=== PATIENT | female | born 1980 ===

== ENCOUNTER → 2021-08-22 | Outpatient (CLI) | payer OTHER ==
--- NOTE | 2021-08-23 04:45 | MR ---
EXAMINATION TYPE: MR ankle RT wo con DATE OF EXAM: 08/22/2021 COMPARISON: None HISTORY: Right ankle pain Multiplanar multiecho imaging of the right ankle without contrast. There is slight increased fluid signal in the anterior aspect of the Achilles tendon at the posterior aspect of the calcaneus. This is suggestive of a partial tear. Plantar fascia appears intact. Subtal ar joint is intact. Ankle mortise is anatomic. The collateral ligaments are intact. There is no evidence of any significa nt ankle joint effusion. Medial and lateral flexor tendons of the ankle appear intact. There is no ev idence of any significant soft tissue swelling. IMPRESSION: There is some mild increased fluid signal in in the anterior aspect of the Achilles tendon suggestive of a partial tear near the attachment on the calcaneus. No fracture seen. No evidence of ligament te ar.
== END | disposition home or self-care (01) ==
LOC: RADMRIMAIN 19:01
PROVIDERS: ATTEND Physician Assistant
DX: M25.571 Pain in right ankle and joints of right foot (principal)

== ENCOUNTER 2023-11-08 23:29 | Inpatient (IN) | payer MEDICARE, OTHER ==
--- NOTE | 2023-11-09 00:04 | ED ---
SOB HPI - General Chief Complaint: Shortness of Breath Stated Complaint: Difficulty Breathing Time Seen by Provider: 11/08/23 23:47 Source: patient Mode of arrival: ambulatory Limitations: no limitations - History of Present Illness Initial Comments: Please note that this is a repeat dictation, as the original appears to have been lost from the computer system. This patient is a 43-year-old woman presenting with complaint that she is not feeling well. The main issue is that she is short of breath and weak. She is not a great historian, appearing to be moderately delirious. The patient was denying pains. She did not note fevers though she said at times she gets warm. No pains. There is cough but no sputum. MD Complaint: shortness of breath, cough -: unknown Severity scale (1-10): 0 Consistency: constant Improves With: nothing Worsens With: nothing Known History Of: diabetes Treatments Prior to Arrival: none - Related Data Home Oxygen Therapy: No Home Medications Medication Instructions Recorded Confirmed Albuterol Sulfate [Albuterol 1 - 2 puff PO RT-Q4H PRN 11/09/23 11/09/23 Sulfate Hfa] Atorvastatin [Lipitor] 20 mg PO HS 11/09/23 11/09/23 Brexpiprazole [Rexulti] 0.5 mg PO DAILY 11/09/23 11/09/23 Dextromethorphan HBr/Bupropion 1 tab PO BID 11/09/23 11/09/23 [Auvelity ER 45-105 mg Tablet] Losartan [Cozaar] 50 mg PO DAILY 11/09/23 11/09/23 Montelukast [Singulair] 10 mg PO HS 11/09/23 11/09/23 Pantoprazole Sodium [Protonix] 20 mg PO DAILY 11/09/23 11/09/23 buPROPion SR [Wellbutrin SR] 100 mg PO DAILY 11/09/23 11/09/23 hydroCHLOROthiazide [Hydrodiuril] 25 mg PO DAILY 11/09/23 11/09/23 Previous Rx's Medication Instructions Recorded Acetaminophen Tab [Tylenol] 650 mg PO Q6HR PRN tab 11/13/23 Insulin Detemir (Levemir) [Levemir] 50 unit SQ HS #2 each 11/14/23 Syringe-Needle,Insulin,0.5 ml 1 syr SQ DIRECTED #30 each 11/14/23 [Insulin Syringe 30G 5/16" 1/2 ml] metFORMIN HCL [Glucophage] 500 mg PO BID #60 tab 11/14/23 Allergies Allergy/AdvReac Type Severity Reaction Status Date / Time shellfish derived Allergy Rash/Hives Verified 11/09/23 10:17 Review of Systems ROS Statement: Those systems with pertinent positive or pertinent negative responses have been documented in the HPI. ROS Other: All systems not noted in ROS Statement are negative. Limitations: ROS unobtainable due to patients medical condition Constitutional: Denies: fever Respiratory: Reports: cough, dyspnea Cardiovascular: Denies: chest pain Gastrointestinal: Denies: abdominal pain, vomiting, diarrhea Genitourinary: Denies: dysuria Musculoskeletal: Denies: back pain Neurological: Denies: headache Past Medical History Past Medical History: Diabetes Mellitus History of Any Multi-Drug Resistant Organisms: None Reported Past Surgical History: No Surgical Hx Reported Past Psychological History: Bipolar Smoking Status: Never smoker Past Alcohol Use History: None Reported Past Drug Use History: None Reported General Exam Limitations: altered mental status (Patient appears delirious) General appearance: alert, in no apparent distress Head exam: Present: atraumatic, normocephalic Eye exam: Present: normal appearance, PERRL, EOMI. Absent: scleral icterus, conjunctival injection ENT exam: Present: normal oropharynx Neck exam: Present: normal inspection, full ROM. Absent: meningismus Respiratory exam: Present: respiratory distress (There is mild tachypnea), rhonchi. Absent: wheezes, rales, stridor, accessory muscle use Cardiovascular Exam: Present: normal rhythm, tachycardia, systolic murmur (Grade 2/6 systolic ejection murmur). Absent: diastolic murmur, rubs, gallop GI/Abdominal exam: Present: soft. Absent: distended, tenderness, guarding, rebound, rigid, mass Extremities exam: Present: normal inspection, normal capillary refill, pedal edema. Absent: calf tenderness Back exam: Present: normal inspection. Absent: CVA tenderness (R), CVA tenderness (L) Neurological exam: Present: alert, CN II-XII intact. Absent: motor sensory deficit Skin exam: Present: warm, dry, intact, mottled. Absent: rash Course Vital Signs 11/08/23 11/08/23 11/08/23 23:37 23:53 23:57 Temperature 98.5 F Pulse Rate 120 H 113 H 112 H Respiratory 22 24 24 Rate Blood Pressure 132/70 124/83 O2 Sat by Pulse 76 L 86 L 92 L Oximetry 11/09/23 11/09/23 11/09/23 00:00 02:23 04:23 Temperature Pulse Rate 108 H 98 Respiratory 24 20 17 Rate Blood Pressure 160/108 131/101 O2 Sat by Pulse 92 L 93 L Oximetry 11/09/23 11/09/23 11/09/23 07:12 08:00 08:28 Temperature 98.7 F Pulse Rate 109 H 102 H 101 H Respiratory 22 23 24 Rate Blood Pressure 123/78 123/78 167/93 O2 Sat by Pulse 92 L 89 L 91 L Oximetry 11/09/23 11/09/23 11/09/23 09:00 10:00 11:19 Temperature Pulse Rate 110 H 99 104 H Respiratory 30 H 21 30 H Rate Blood Pressure 167/93 109/84 147/83 O2 Sat by Pulse 88 L 92 L 88 L Oximetry 11/09/23 11/09/23 11/09/23 13:24 18:07 19:28 Temperature Pulse Rate 101 H 98 101 H Respiratory 20 22 20 Rate Blood Pressure 125/74 131/73 132/72 O2 Sat by Pulse 90 L 98 94 L Oximetry 11/09/23 11/09/23 11/09/23 19:40 19:49 22:11 Temperature 97.8 F Pulse Rate 101 H 103 H 98 Respiratory 22 Rate Blood Pressure 114/84 O2 Sat by Pulse 92 L Oximetry Medical Decision Making - Medical Decision Making Patient is 43-year-old woman presenting with dyspnea and cough. Initial workup includes chest x-ray that I interpreted as showing probable lower lobe pneumonia. Patient started on antibiotics. The patient's BNP is borderline for age and patient will have echocardiogram. At this point we'll hold off of aggressive hydration until the results of the echocardiogram. The patient's blood gas does show elevated pCO2 however the pH appears show compensation and suspect that this is chronic. Based on appearance patient is suspected of some chronic restrictive lung disease. Patient be admitted with neurology and cardiology consultation. Was pt. sent in by a medical professional or institution (, PA, SHEETROCK APPLICATOR, urgent care, hospital, or usp...) When possible be specific @ -[No] Did you speak to anyone other than the patient for history (EMS, parent, family, police, friend...)? What history was obtained from this source @ -[No] Did you review nursing and triage notes (agree or disagree)? Why? @ -[I reviewed and agree with nursing and triage notes] Were old charts reviewed (outside hosp., previous admission, EMS record, old EKG, old radiological studies, urgent care reports/EKG's, usp records)? Report findings @ -[No old charts were reviewed] Differential Diagnosis (chest pain, altered mental status, abdominal pain women, abdominal pain men, vaginal bleeding, weakness, fever, dyspnea, syncope, head ache, dizziness, GI bleed, back pain, seizure, CVA, palpatations, mental health, musculoskeletal)? @ -[Differential Dyspnea: Coronary syndrome, arrhythmia, tamponade, asthma, COPD, pulmonary embolism, pneumonia, pneumothorax, pulmonary effusion, anaphylaxis, diabetic ketoacidosis, flailed chest, pulmonary contusion, diaphragmatic rupture, anemia, neuromuscular, this is not meant to be an all-inclusive list. EKG interpreted by me (3pts min.). @ -[I interpreted as above] X-rays interpreted by me (1pt min.). @ -[I interpreted as above CT interpreted by me (1pt min.). @ -[None done] U/S interpreted by me (1pt. min.). @ -[None done] What testing was considered but not performed or refused? (CT, X-rays, U/S, labs)? Why? @ -[None] What meds were considered but not given or refused? Why? @ -[None] Did you discuss the management of the patient with other professionals (professionals i.e. , PA, SHEETROCK APPLICATOR, lab, RT, psych nurse, social welfare research worker, low voltage technician, teacher, retail loss prevention officer, top case assembler)? Give summary @ -[I discussed the case with the admitting physician and with the portal architect and treatment recommendations are incorporated Was smoking cessation discussed for >3mins.? @ -[No] Was critical care preformed (if so, how long)? @ -[Yes, 30 minutes Were there social determinants of health that impacted care today? How? (Homelessness, low income, unemployed, alcoholism, drug addiction, transportation, low edu. Level, literacy, decrease access to med. care, [facility], rehab)? @ -[No] Was there de-escalation of care discussed even if they declined (Discuss DNR or withdrawal of care, Hospice)? DNR status @ -[No] What co-morbidities impacted this encounter? (DM, HTN, Smoking, COPD, CAD, Cancer, CVA, ARF, Chemo, Hep., AIDS, mental health diagnosis, sleep apnea, morbid obesity)? @ -[Diabetes, morbid obesity Was patient admitted / discharged? Hospital course, mention meds given and route, prescriptions, significant lab abnormalities, going to OR and other pertinent info. @ -[Patient is admitted, see above Undiagnosed new problem with uncertain prognosis? @ -[No] Drug Therapy requiring intensive monitoring for toxicity (Heparin, Nitro, Insulin, Cardizem)? @ -[No] Were any procedures done? @ -[No] Diagnosis/symptom? @ -[Acute dyspnea Acute hypercarbia Restrictive lung disease Hyperglycemia and diabetic patient Acute, or Chronic, or Acute on Chronic? @ -[Acute Uncomplicated (without systemic symptoms) or Complicated (systemic symptoms)? @ -[Complicated Side effects of treatment? @ -[No] Exacerbation, Progression, or Severe Exacerbation? @ -[No] Poses a threat to life or bodily function? How? (Chest pain, USA, SD, pneumonia, PE, COPD, DKA, ARF, appy, cholecystitis, CVA, Diverticulitis, Homicidal, Suicidal, threat to staff... and all critical care pts) @ -[Yes, there is risk of further progression to respiratory failure and - Lab Data Result diagrams: 11/12/23 05:27 11/12/23 05:27 Lab Results 11/08/23 11/08/23 11/08/23 Range/Units 23:52 23:52 23:52 WBC 10.3 (3.8-10.6) k/uL RBC 5.33 (3.80-5.40) m/uL Hgb 13.1 (11.4-16.0) gm/dL Hct 43.8 (34.0-46.0) % MCV 82.2 (80.0-100.0) fL MCH 24.6 L (25.0-35.0) pg MCHC 29.9 L (31.0-37.0) g/dL RDW 15.9 H (11.5-15.5) % Plt Count 250 (150-450) k/uL MPV 9.2 Neutrophils % (Manual) 66 % Band Neuts % (Manual) 1 % Lymphocytes % (Manual) 29 % Monocytes % (Manual) 3 % Eosinophils % (Manual) 1 % Neutrophils # (Manual) 6.90 (1.3-7.7) k/uL Lymphocytes # (Manual) 2.99 (1.0-4.8) k/uL Monocytes # (Manual) 0.31 (0-1.0) k/uL Eosinophils # (Manual) 0.10 (0-0.7) k/uL Nucleated RBCs 2 H (0-0) /100 WBC Manual Slide Review Performed Polychromasia Present Hypochromasia Marked Poikilocytosis Slight Anisocytosis (manual) Present PT 10.2 (10.0-12.5) sec INR 0.9 (<1.2) APTT 20.4 L (22.0-30.0) sec D-Dimer 0.58 (<0.60) mg/L FEU Sample Site ABG pH (7.35-7.45) ABG pCO2 (35-45) mmHg ABG pO2 (83-108) mmHg ABG HCO3 (21-25) mmol/L ABG Total CO2 ABG O2 Saturation (94-97) % ABG Base Excess mmol/L Joao Test FiO2 % Sodium 133 L (137-145) mmol/L Potassium 4.9 (3.5-5.1) mmol/L Chloride 93 L (98-107) mmol/L Carbon Dioxide 33 H (22-30) mmol/L Anion Gap 7 mmol/L BUN 16 (7-17) mg/dL Creatinine 0.64 (0.52-1.04) mg/dL Est GFR (CKD-EPI)AfAm >90 (>60 ml/min/1.73 sqM) Est GFR (CKD-EPI)NonAf >90 (>60 ml/min/1.73 sqM) Glucose 480 H (74-99) mg/dL POC Glucose (mg/dL) (70-110) mg/dL POC Glu Resp Therapist ID Estimated Ave Glu mg/dL mg/dL Hemoglobin A1c (<=6.0) % Lactic Ac Sepsis Rflx Plasma Lactic Acid Mac (0.7-2.0) mmol/L Calcium 10.0 (8.4-10.2) mg/dL Total Bilirubin 0.6 (0.2-1.3) mg/dL AST 31 (14-36) U/L ALT 43 H (4-34) U/L Alkaline Phosphatase 136 H (38-126) U/L Troponin I (0.000-0.034) ng/mL NT-Pro-B Natriuret Pep 496 pg/mL Total Protein 6.3 (6.3-8.2) g/dL Albumin 3.6 (3.5-5.0) g/dL Procalcitonin (0.02-0.09) ng/mL 11/08/23 11/08/23 11/08/23 Range/Units 23:52 23:52 23:52 WBC (3.8-10.6) k/uL RBC (3.80-5.40) m/uL Hgb (11.4-16.0) gm/dL Hct (34.0-46.0) % MCV (80.0-100.0) fL MCH (25.0-35.0) pg MCHC (31.0-37.0) g/dL RDW (11.5-15.5) % Plt Count (150-450) k/uL MPV Neutrophils % (Manual) % Band Neuts % (Manual) % Lymphocytes % (Manual) % Monocytes % (Manual) % Eosinophils % (Manual) % Neutrophils # (Manual) (1.3-7.7) k/uL Lymphocytes # (Manual) (1.0-4.8) k/uL Monocytes # (Manual) (0-1.0) k/uL Eosinophils # (Manual) (0-0.7) k/uL Nucleated RBCs (0-0) /100 WBC Manual Slide Review Polychromasia Hypochromasia Poikilocytosis Anisocytosis (manual) PT (10.0-12.5) sec INR (<1.2) APTT (22.0-30.0) sec D-Dimer (<0.60) mg/L FEU Sample Site ABG pH (7.35-7.45) ABG pCO2 (35-45) mmHg ABG pO2 (83-108) mmHg ABG HCO3 (21-25) mmol/L ABG Total CO2 ABG O2 Saturation (94-97) % ABG Base Excess mmol/L Joao Test FiO2 % Sodium (137-145) mmol/L Potassium (3.5-5.1) mmol/L Chloride (98-107) mmol/L Carbon Dioxide (22-30) mmol/L Anion Gap mmol/L BUN (7-17) mg/dL Creatinine (0.52-1.04) mg/dL Est GFR (CKD-EPI)AfAm (>60 ml/min/1.73 sqM) Est GFR (CKD-EPI)NonAf (>60 ml/min/1.73 sqM) Glucose (74-99) mg/dL POC Glucose (mg/dL) (70-110) mg/dL POC Glu Resp Therapist ID Estimated Ave Glu mg/dL mg/dL Hemoglobin A1c (<=6.0) % Lactic Ac Sepsis Rflx Plasma Lactic Acid Mac 3.6 H* (0.7-2.0) mmol/L Calcium (8.4-10.2) mg/dL Total Bilirubin (0.2-1.3) mg/dL AST (14-36) U/L ALT (4-34) U/L Alkaline Phosphatase (38-126) U/L Troponin I <0.012 (0.000-0.034) ng/mL NT-Pro-B Natriuret Pep pg/mL Total Protein (6.3-8.2) g/dL Albumin (3.5-5.0) g/dL Procalcitonin 0.13 H (0.02-0.09) ng/mL 11/08/23 11/09/23 11/09/23 Range/Units 23:52 00:15 01:27 WBC (3.8-10.6) k/uL RBC (3.80-5.40) m/uL Hgb (11.4-16.0) gm/dL Hct (34.0-46.0) % MCV (80.0-100.0) fL MCH (25.0-35.0) pg MCHC (31.0-37.0) g/dL RDW (11.5-15.5) % Plt Count (150-450) k/uL MPV Neutrophils % (Manual) % Band Neuts % (Manual) % Lymphocytes % (Manual) % Monocytes % (Manual) % Eosinophils % (Manual) % Neutrophils # (Manual) (1.3-7.7) k/uL Lymphocytes # (Manual) (1.0-4.8) k/uL Monocytes # (Manual) (0-1.0) k/uL Eosinophils # (Manual) (0-0.7) k/uL Nucleated RBCs (0-0) /100 WBC Manual Slide Review Polychromasia Hypochromasia Poikilocytosis Anisocytosis (manual) PT (10.0-12.5) sec INR (<1.2) APTT (22.0-30.0) sec D-Dimer (<0.60) mg/L FEU Sample Site Right Radial ABG pH 7.39 (7.35-7.45) ABG pCO2 65 H (35-45) mmHg ABG pO2 63 L (83-108) mmHg ABG HCO3 39 H (21-25) mmol/L ABG Total CO2 Not Reportable ABG O2 Saturation 91.0 L (94-97) % ABG Base Excess 11.4 mmol/L Joao Test Yes FiO2 52 % Sodium (137-145) mmol/L Potassium (3.5-5.1) mmol/L Chloride (98-107) mmol/L Carbon Dioxide (22-30) mmol/L Anion Gap mmol/L BUN (7-17) mg/dL Creatinine (0.52-1.04) mg/dL Est GFR (CKD-EPI)AfAm (>60 ml/min/1.73 sqM) Est GFR (CKD-EPI)NonAf (>60 ml/min/1.73 sqM) Glucose (74-99) mg/dL POC Glucose (mg/dL) (70-110) mg/dL POC Glu Resp Therapist ID Estimated Ave Glu mg/dL 303 mg/dL Hemoglobin A1c 12.2 H (<=6.0) % Lactic Ac Sepsis Rflx Y Plasma Lactic Acid Mac (0.7-2.0) mmol/L Calcium (8.4-10.2) mg/dL Total Bilirubin (0.2-1.3) mg/dL AST (14-36) U/L ALT (4-34) U/L Alkaline Phosphatase (38-126) U/L Troponin I (0.000-0.034) ng/mL NT-Pro-B Natriuret Pep pg/mL Total Protein (6.3-8.2) g/dL Albumin (3.5-5.0) g/dL Procalcitonin (0.02-0.09) ng/mL 11/09/23 11/09/23 Range/Units 04:08 05:52 WBC (3.8-10.6) k/uL RBC (3.80-5.40) m/uL Hgb (11.4-16.0) gm/dL Hct (34.0-46.0) % MCV (80.0-100.0) fL MCH (25.0-35.0) pg MCHC (31.0-37.0) g/dL RDW (11.5-15.5) % Plt Count (150-450) k/uL MPV Neutrophils % (Manual) % Band Neuts % (Manual) % Lymphocytes % (Manual) % Monocytes % (Manual) % Eosinophils % (Manual) % Neutrophils # (Manual) (1.3-7.7) k/uL Lymphocytes # (Manual) (1.0-4.8) k/uL Monocytes # (Manual) (0-1.0) k/uL Eosinophils # (Manual) (0-0.7) k/uL Nucleated RBCs (0-0) /100 WBC Manual Slide Review Polychromasia Hypochromasia Poikilocytosis Anisocytosis (manual) PT (10.0-12.5) sec INR (<1.2) APTT (22.0-30.0) sec D-Dimer (<0.60) mg/L FEU Sample Site ABG pH (7.35-7.45) ABG pCO2 (35-45) mmHg ABG pO2 (83-108) mmHg ABG HCO3 (21-25) mmol/L ABG Total CO2 ABG O2 Saturation (94-97) % ABG Base Excess mmol/L Joao Test FiO2 % Sodium (137-145) mmol/L Potassium (3.5-5.1) mmol/L Chloride (98-107) mmol/L Carbon Dioxide (22-30) mmol/L Anion Gap mmol/L BUN (7-17) mg/dL Creatinine (0.52-1.04) mg/dL Est GFR (CKD-EPI)AfAm (>60 ml/min/1.73 sqM) Est GFR (CKD-EPI)NonAf (>60 ml/min/1.73 sqM) Glucose (74-99) mg/dL POC Glucose (mg/dL) 242 H (70-110) mg/dL POC Glu Resp Therapist ID Julia Freitas Estimated Ave Glu mg/dL mg/dL Hemoglobin A1c (<=6.0) % Lactic Ac Sepsis Rflx Plasma Lactic Acid Mac 1.4 (0.7-2.0) mmol/L Calcium (8.4-10.2) mg/dL Total Bilirubin (0.2-1.3) mg/dL AST (14-36) U/L ALT (4-34) U/L Alkaline Phosphatase (38-126) U/L Troponin I (0.000-0.034) ng/mL NT-Pro-B Natriuret Pep pg/mL Total Protein (6.3-8.2) g/dL Albumin (3.5-5.0) g/dL Procalcitonin (0.02-0.09) ng/mL - EKG Data -: EKG Interpreted by Me EKG shows normal: sinus rhythm (05/22/2011 bpm), intervals (Normal), QRS complexes Rate: tachycardia (Rate 111 bpm) Interpretation: other (Possible old inferior SD) Disposition Clinical Impression: Dyspnea, Pneumonia, Hypercarbia, Hyperglycemia due to diabetes mellitus Disposition: ADMITTED IP TO THIS HOSP Condition: Stable Is patient prescribed a controlled substance at d/c from ED?: No
[2023-11-09 00:14] LABS: ABG Base Excess 11.4 mmol/L; ABG HCO3 39 mmol/L (21-25); ABG PCO2 65 mmHg (35-45); ABG PH 7.39 (7.35-7.45); ABG PO2 63 mmHg (83-108); Allen Test Performed? Yes
[2023-11-09 01:05] LABS: INR 0.9 (<1.2); Prothrombin Time 10.2 sec (10.0-12.5)
[2023-11-09 01:18] LABS: Partial Thromboplastin Time 20.4 sec (22.0-30.0)
[2023-11-09 01:36] LABS: HCT 43.8 % (34.0-46.0); HGB 13.1 gm/dL (11.4-16.0); Hypochromasia Marked; MCH 24.6 pg (25.0-35.0); MCHC 29.9 g/dL (31.0-37.0); MCV 82.2 fL (80.0-100.0); Mean Platelet Volume 9.2; Platelet Count 250 k/uL (150-450); Poikilocytosis Slight; RBC 5.33 m/uL (3.80-5.40); RDW 15.9 % (11.5-15.5)
[2023-11-09 01:59] LABS: ALT 43 U/L (4-34); AST 31 U/L (14-36); African American GFR (CKD) >90 (>60 ml/min/1.73 sqM); Albumin 3.6 g/dL (3.5-5.0); Alkaline Phosphatase 136 U/L (38-126); Anion Gap 7 mmol/L; Blood Urea Nitrogen 16 mg/dL (7-17); Carbon Dioxide 33 mmol/L (22-30); Chloride 93 mmol/L (98-107); Glucose 480 mg/dL (74-99); Non-African American GFR(CKD) >90 (>60 ml/min/1.73 sqM); Potassium 4.9 mmol/L (3.5-5.1); Sodium 133 mmol/L (137-145); Total Bilirubin 0.6 mg/dL (0.2-1.3); Total Protein 6.3 g/dL (6.3-8.2)
[2023-11-09 02:08] LABS: NT-Pro-B-Type Natriuretic Pept 496 pg/mL
--- NOTE | 2023-11-09 03:13 | XR ---
EXAM: XR Chest, 2 Views CLINICAL HISTORY: ITS.REASON XR Reason: difficulty breathing TECHNIQUE: Frontal and lateral views of the chest. COMPARISON: No relevant prior studies available. FINDINGS: Lungs: Query mild patchy atelectasis or airspace disease in the right lung base. Pleural space: Unremarkable. No pneumothorax. Heart: Unremarkable. No cardiomegaly. Mediastinum: Unremarkable. Normal mediastinal contour. Bones/joints: Unremarkable. No acute fracture. Other findings: On the frontal view, patient mildly rotated to the right. IMPRESSION: Query mild patchy atelectasis or airspace disease in the right lung base.
[2023-11-09] MEDS ORDERED: INSULIN REGULAR 100 UNIT/ML VIAL (IV) SQ STA (03:20)
[2023-11-09] MEDS ORDERED: NITROGLYCERIN OINT 1 INCH/GM PACKET TOPICAL STA (04:00)
[2023-11-09] MEDS ORDERED: AZITHROMYCIN 500 MG TAB PO STA (04:01)
[2023-11-09 04:18] LABS: Band Neutrophils % 1 %; Neutrophils % (M) 66 %; Nucleated Red Blood Cells 2 /100 WBC (0-0); Total Cells Counted 200
[2023-11-09 04:19] LABS: Lymphocytes # (M) 2.99 k/uL (1.0-4.8); Monocytes # (M) 0.31 k/uL (0-1.0); WBC 10.3 k/uL (3.8-10.6)
[2023-11-09 04:20] LABS: Anisocytosis (M) Present
[2023-11-09 04:22] LABS: Polychromasia Present
[2023-11-09 05:54] LABS: Glucose,Whole Blood 242 mg/dL (70-110)
[2023-11-09] MEDS ORDERED: PNEUMONIA PROTOCOL UTILIZED 1 EACH MISC PO PRN (06:01)
[2023-11-09] MEDS ORDERED: ALBUTEROL NEBULIZED 2.5 MG/3 ML INHALATION PRN (06:01)
[2023-11-09] MEDS ORDERED: DEXTROSE 50% SYRINGE 50 ML IVP PRN ×2 (06:35)
[2023-11-09 06:53] LABS: Glucose,Whole Blood 268 mg/dL (70-110)
[2023-11-09] MEDS: INSULIN ASPART (NovoLOG) 100 UNIT/ML VIAL SQ SCH ×7 (08:29→22:20)
[2023-11-09] MEDS ORDERED: FUROSEMIDE 10 MG/ML 4 ML VIAL IV STA (10:02)
--- NOTE | 2023-11-09 10:08 | CA ---
Transthoracic Echo Report Name: Paradise Ulloa Age: 43 Gender: F : 1980 Exam Date: 11/09/2023 07:54 Exam Location: [facility] Ht (in): 62 Wt (lb): 300 Ordering Physician: Moreno Brown MD Attending/Referring Phys: Nursing Assistant Mary Alvarez [facility] Procedure CPT: Indications: elevated bnp Cardiac Hx: Technical Quality: Technically difficult study Contrast 1: Definity Total Dose (mL): 6 Contrast 2: Total Dose (mL): MEASUREMENTS (Male / Female) Normal Values 2D ECHO LV Diastolic Diameter PLAX 4.0 cm 4.2 - 5.9 / 3.9 - 5.3 cm LV Systolic Diameter PLAX 2.3 cm IVS Diastolic Thickness 1.5 cm 0.6 - 1.0 / 0.6 - 0.9 cm LVPW Diastolic Thickness 1.4 cm 0.6 - 1.0 / 0.6 - 0.9 cm LV Relative Wall Thickness 0.7 LVOT Diameter 2.0 cm Ascending Aorta Diameter 2.9 cm M-MODE Aortic Root Diameter MM 2.7 cm LA Systolic Diameter MM 3.2 cm LA Ao Ratio MM 1.2 AV Cusp Separation MM 2.2 cm DOPPLER AV Peak Velocity 196.5 cm/s AV Peak Gradient 15.5 mmHg AV Mean Velocity 138.5 cm/s AV Mean Gradient 8.6 mmHg AV Velocity Time Integral 32.0 cm LVOT Peak Velocity 134.1 cm/s LVOT Peak Gradient 7.2 mmHg LVOT Velocity Time Integral 23.8 cm LVOT Stroke Volume 78.4 cm??? LVOT Stroke Volume Index 34.5 ml/m??? LVOT Cardiac Index 2878.5 cm???/min???m??? AV Area Cont Eq vti 2.5 cm??? AV Area Cont Eq pk 2.2 cm??? Mitral E Point Velocity 78.2 cm/s Mitral A Point Velocity 108.3 cm/s Mitral E to A Ratio 0.7 MV Deceleration Time 154.1 ms LV E' Lateral Velocity 13.3 cm/s Mitral E to LV E' Lateral Ratio 5.9 LV E' Septal Velocity 7.8 cm/s Mitral E to LV E' Septal Ratio 10.0 TR Peak Velocity 254.8 cm/s TR Peak Gradient 26.0 mmHg Right Atrial Pressure 8.0 mmHg Pulmonary Artery Systolic Pressu 34.0 mmHg Right Ventricular Systolic Press 34.0 mmHg FINDINGS Left Ventricle Moderately increased septal wall thickness. Moderately increased posterior wall thickness. Left ventricular cavity size normal. Normal left ventricular systolic function with no obvious regional wall motion abnormalities. Left ventricular ejection fraction is estimated at 65-70%. Hyperdynamic left ventricular systolic function. Right Ventricle Mild right ventricular dilatation. Mildly reduced right ventricular global systolic function. Mild pulmonary hypertension. Right Atrium Mild right atrial dilatation. Left Atrium Normal left atrial size. Mitral Valve Structurally normal mitral valve. No mitral regurgitation. Aortic Valve Aortic valve not well visualized. No aortic valve stenosis or regurgitation. Tricuspid Valve Tricuspid valve not well visualized. Trace tricuspid regurgitation. Pulmonic Valve Pulmonic valve not well visualized. Pericardium Minimal pericardial effusion (normal variant). Aorta Normal size aortic root and proximal ascending aorta. CONCLUSIONS Normal LV size with hyperdynamic LV function Dilated right ventricle with hypokinesis of the free wall of the RV Previewed by: Dr. Vickey Moctezuma MD (Electronically Signed) Final Date: 09 November 2023 10:07
--- NOTE | 2023-11-09 11:12 | P.CNPUL ---
History of Present Illness Consult date: 11/09/23 Reason for consult: dyspnea, hypoxemia History of present illness: I saw this patient in emergency department. She is a 43-year-old morbidly obese female patient IS A BODY MASS INDEX OF 54.9. The patient was has less for shortness of breath. Unfortunately, no records are available from emergency and the physician on-call has left the hospital and the patient herself is a poor historian. She was unable to volunteer much of history. At time of arrival, the patient was sleeping and she was having active apneas and I do suspect that she has underlying obstructive sleep apnea. Upon arousal, she was not fully appropriate and she was somewhat confused and the information which provided was not reliable. She admits to have shortness of breath and she denies having any chest pain. She denied any, smoking history. Denies having any lung disease such as asthma or emphysema. Denies having any congestion heart failure. Hemodynamically she was stable. She was on 8 L of oxygen by nasal cannula. The chest x-ray showed mild patchy atelectatic changes/airspace disease in the right lung base. Echo of the heart was also done and the patient was found and left antegrade ejection fraction of 65-70%. She has a hyperdynamic LV and mother thinks the septal wall thickening and moderate increase in posterior wall thickness in the left ventricular cavity was normal. No significant valvular disease was noted. Meanwhile, the patient's blood work shows a WBC count of 10.3, hemoglobin at 13.1 and a platelet count is up to 50. Blood gas was done on 50% FiO2 this with the patient 7.39 with episodes of 65 and pO2 of 63. BUN is at 60 with a creatinine of 0.6 and a bicarb level is at 33. The glucose was at 339. Lactic acid level initially was at 3.6 and dropped down to 1.4 and a UA was negative for infection and she had +4 glucose. Pro-calcitonin level was at 0.13. ProBNP level was 496. Review of Systems ROS unobtainable: due to mental status Constitutional: Reports daytime sleepiness, Reports fatigue, Reports lethargy, Reports weight gain Eyes: denies as per HPI, denies blurred vision, denies bulging eye, denies decreased vision, denies diplopia, denies discharge, denies dry eye, denies irritation, denies itching, denies pain, denies photophobia, denies loss of peripheral vision, denies loss of vision, denies tunnel vision/blind spots Ears: deny: decreased hearing, ear discharge, earache, tinnitus Ears, nose, mouth and throat: Reports as per HPI Breasts: absent: as per HPI, change in shape, gynecomastia, masses, nipple discharge, pain, skin changes, swelling Cardiovascular: Reports shortness of breath Respiratory: Reports as per HPI, Reports snoring Gastrointestinal: Reports as per HPI Genitourinary: Reports as per HPI Menstruation: Reports as per HPI Musculoskeletal: Reports as per HPI Musculoskeletal: absent: ankle pain, ankle stiffness, ankle swelling Integumentary: Reports as per HPI Neurological: Reports as per HPI Psychiatric: Reports as per HPI Endocrine: Reports as per HPI Hematologic/Lymphatic: Reports as per HPI Allergic/Immunologic: Reports as per HPI Past Medical History Past Medical History: Diabetes Mellitus, Hyperlipidemia, Hypertension, Sleep Apnea/CPAP/BIPAP Additional Past Medical History / Comment(s): obesity History of Any Multi-Drug Resistant Organisms: None Reported Past Surgical History: No Surgical Hx Reported Past Psychological History: Bipolar Smoking Status: Never smoker Past Alcohol Use History: None Reported Past Drug Use History: None Reported Medications and Allergies Home Medications Medication Instructions Recorded Confirmed Type Albuterol Sulfate [Albuterol 1 - 2 puff PO RT-Q4H PRN 11/09/23 11/09/23 History Sulfate Hfa] Atorvastatin [Lipitor] 20 mg PO HS 11/09/23 11/09/23 History Brexpiprazole [Rexulti] 0.5 mg PO DAILY 11/09/23 11/09/23 History Celecoxib [Celebrex] 400 mg PO DAILY 11/09/23 11/09/23 History Dextromethorphan HBr/Bupropion 1 tab PO BID 11/09/23 11/09/23 History [Auvelity ER 45-105 mg Tablet] Losartan [Cozaar] 50 mg PO DAILY 11/09/23 11/09/23 History Montelukast [Singulair] 10 mg PO HS 11/09/23 11/09/23 History Pantoprazole Sodium [Protonix] 20 mg PO DAILY 11/09/23 11/09/23 History buPROPion SR [Wellbutrin SR] 100 mg PO DAILY 11/09/23 11/09/23 History hydrOXYzine pamoate 50 mg PO QID PRN 11/09/23 11/09/23 History hydroCHLOROthiazide [Hydrodiuril] 25 mg PO DAILY 11/09/23 11/09/23 History oxyCODONE HCL/ACETAMINOPHEN 1 tab PO TID PRN 11/09/23 11/09/23 History [Percocet 10-325 mg] Allergies Allergy/AdvReac Type Severity Reaction Status Date / Time shellfish derived Allergy Rash/Hives Verified 11/09/23 10:17 Physical Exam Vitals: Vital Signs Temp Pulse Resp BP Pulse Ox 11/09/23 10:00 99 21 109/84 92 L 11/09/23 09:00 110 H 30 H 167/93 88 L 11/09/23 08:28 101 H 24 167/93 91 L 11/09/23 08:00 102 H 23 123/78 89 L 11/09/23 07:12 98.7 F 109 H 22 123/78 92 L 11/09/23 04:23 98 17 131/101 93 L 11/09/23 02:23 108 H 20 160/108 92 L 11/09/23 00:00 24 11/08/23 23:57 112 H 24 92 L 11/08/23 23:53 113 H 24 124/83 86 L 11/08/23 23:37 98.5 F 120 H 22 132/70 76 L Intake and Output 11/08/23 11/09/23 11/09/23 22:59 06:59 14:59 Other: Weight 136.078 kg Morbidly obese, calm and comfortable on 8 L of oxygen by nasal cannula. Le thargic and sleepy, unable to volunteer valuable history. Does not look toxic. Head exam was generally normal. There was no scleral icterus or corneal arcus. Mucous membranes were moist. Neck was supple and without jugular venous distension, thyromegaly, or carotid bruits. Carotids were easily palpable bilaterally. There was no adenopathy. The patient has significant crowding of posterior pharynx and the patient is a Mallampati class IV Lungs sounds are diminished bilaterally and some few crackles in lung bases are appreciated Cardiac exam revealed the PMI to be normally situated and sized. The rhythm was regular and no extrasystoles were noted during several minutes of auscultation. The first and second heart sounds were normal and physiologic splitting of the second heart sound was noted. There were no murmurs, rubs, clicks, or gallops. Abdomen is obese and soft.Abdominal exam revealed normal bowel sounds. The abdomen was soft, non-tender, and without masses, organomegaly, or appreciable enlargement of the abdominal aorta. Examination of the extremities revealed easily palpable radial, femoral and pedal pulses. There was no cyanosis, clubbing or edema. Examination of the skin revealed no evidence of significant rashes, suspicious appearing nevi or other concerning lesions. Neurologically, arousable. Very sleepy and the patient is going all 4 extremities without any limitation. Results - Laboratory Findings CBC and BMP: 11/08/23 23:52 11/08/23 23:52 ABG WBC 10.3 k/uL (3.8-10.6) 11/08/23 23:52 RBC 5.33 m/uL (3.80-5.40) 11/08/23 23:52 Hgb 13.1 gm/dL (11.4-16.0) 11/08/23 23:52 Hct 43.8 % (34.0-46.0) 11/08/23 23:52 MCV 82.2 fL (80.0-100.0) 11/08/23 23:52 MCH 24.6 pg (25.0-35.0) L 11/08/23 23:52 MCHC 29.9 g/dL (31.0-37.0) L 11/08/23 23:52 RDW 15.9 % (11.5-15.5) H 11/08/23 23:52 Plt Count 250 k/uL (150-450) 11/08/23 23:52 MPV 9.2 11/08/23 23:52 Neutrophils % (Manual) 66 % 11/08/23 23:52 Band Neuts % (Manual) 1 % 11/08/23 23:52 Lymphocytes % (Manual) 29 % 11/08/23 23:52 Monocytes % (Manual) 3 % 11/08/23 23:52 Eosinophils % (Manual) 1 % 11/08/23 23:52 Neutrophils # (Manual) 6.90 k/uL (1.3-7.7) 11/08/23 23:52 Lymphocytes # (Manual) 2.99 k/uL (1.0-4.8) 11/08/23 23:52 Monocytes # (Manual) 0.31 k/uL (0-1.0) 11/08/23 23:52 Eosinophils # (Manual) 0.10 k/uL (0-0.7) 11/08/23 23:52 Nucleated RBCs 2 /100 WBC (0-0) H 11/08/23 23:52 Manual Slide Review Performed 11/08/23 23:52 Polychromasia Present 11/08/23 23:52 Hypochromasia Marked 11/08/23 23:52 Poikilocytosis Slight 11/08/23 23:52 Anisocytosis (manual) Present 11/08/23 23:52 PT 10.2 sec (10.0-12.5) 11/08/23 23:52 INR 0.9 (<1.2) 11/08/23 23:52 APTT 20.4 sec (22.0-30.0) L 11/08/23 23:52 D-Dimer 0.58 mg/L FEU (<0.60) 11/08/23 23:52 Sample Site Right Radial 11/09/23 00:15 ABG pH 7.39 (7.35-7.45) 11/09/23 00:15 ABG pCO2 65 mmHg (35-45) H 11/09/23 00:15 ABG pO2 63 mmHg (83-108) L 11/09/23 00:15 ABG HCO3 39 mmol/L (21-25) H 11/09/23 00:15 ABG Total CO2 Not Reportable 11/09/23 00:15 ABG O2 Saturation 91.0 % (94-97) L 11/09/23 00:15 ABG Base Excess 11.4 mmol/L 11/09/23 00:15 Joao Test Yes 11/09/23 00:15 FiO2 52 % 11/09/23 00:15 Sodium 133 mmol/L (137-145) L 11/08/23 23:52 Potassium 4.9 mmol/L (3.5-5.1) 11/08/23 23:52 Chloride 93 mmol/L (98-107) L 11/08/23 23:52 Carbon Dioxide 33 mmol/L (22-30) H 11/08/23 23:52 Anion Gap 7 mmol/L 11/08/23 23:52 BUN 16 mg/dL (7-17) 11/08/23 23:52 Creatinine 0.64 mg/dL (0.52-1.04) 11/08/23 23:52 Est GFR (CKD-EPI)AfAm >90 (>60 ml/min/1.73 sqM) 11/08/23 23:52 Est GFR (CKD-EPI)NonAf >90 (>60 ml/min/1.73 sqM) 11/08/23 23:52 Glucose 480 mg/dL (74-99) H 11/08/23 23:52 POC Glucose (mg/dL) 268 mg/dL (70-110) H 11/09/23 06:52 POC Glu [employer] Sam Horne 11/09/23 06:52 Lactic Ac Sepsis Rflx Y 11/09/23 01:27 Plasma Lactic Acid Mac 1.4 mmol/L (0.7-2.0) 11/09/23 04:08 Calcium 10.0 mg/dL (8.4-10.2) 11/08/23 23:52 Total Bilirubin 0.6 mg/dL (0.2-1.3) 11/08/23 23:52 AST 31 U/L (14-36) 11/08/23 23:52 ALT 43 U/L (4-34) H 11/08/23 23:52 Alkaline Phosphatase 136 U/L (38-126) H 11/08/23 23:52 Troponin I <0.012 ng/mL (0.000-0.034) 11/08/23 23:52 NT-Pro-B Natriuret Pep 496 pg/mL 11/08/23 23:52 Total Protein 6.3 g/dL (6.3-8.2) 11/08/23 23:52 Albumin 3.6 g/dL (3.5-5.0) 11/08/23 23:52 Procalcitonin 0.13 ng/mL (0.02-0.09) H 11/08/23 23:52 PT/INR, D-dimer PT 10.2 sec (10.0-12.5) 11/08/23 23:52 INR 0.9 (<1.2) 11/08/23 23:52 D-Dimer 0.58 mg/L FEU (<0.60) 11/08/23 23:52 Abnormal lab findings: Abnormal Labs 11/08/23 11/08/23 11/08/23 23:52 23:52 23:52 MCH 24.6 L MCHC 29.9 L RDW 15.9 H Nucleated RBCs 2 H APTT 20.4 L ABG pCO2 ABG pO2 ABG HCO3 ABG O2 Saturation Sodium 133 L Chloride 93 L Carbon Dioxide 33 H Glucose 480 H POC Glucose (mg/dL) Plasma Lactic Acid Mac ALT 43 H Alkaline Phosphatase 136 H Procalcitonin 11/08/23 11/08/23 11/09/23 23:52 23:52 00:15 MCH MCHC RDW Nucleated RBCs APTT ABG pCO2 65 H ABG pO2 63 L ABG HCO3 39 H ABG O2 Saturation 91.0 L Sodium Chloride Carbon Dioxide Glucose POC Glucose (mg/dL) Plasma Lactic Acid Mac 3.6 H* ALT Alkaline Phosphatase Procalcitonin 0.13 H 11/09/23 11/09/23 05:52 06:52 MCH MCHC RDW Nucleated RBCs APTT ABG pCO2 ABG pO2 ABG HCO3 ABG O2 Saturation Sodium Chloride Carbon Dioxide Glucose POC Glucose (mg/dL) 242 H 268 H Plasma Lactic Acid Mac ALT Alkaline Phosphatase Procalcitonin - Diagnostic Findings Chest x-ray: image reviewed Assessment and Plan Plan: Acute on chronic hypoxic respiratory failure, consider underlying pneumonia. CHF is felt to be less likely. Patient is currently on 8 L of oxygen by nasal cannula. Echo cardiac there was within normal limits. ProBNP level is nonelevated. Suspect chronic hypoxemia possibility to morbid obesity. No children of this underlying chronic lung disease Chronic hypercapnic respiratory failure the patient's blood gases showing well compensated chronic hypercapnic respiratory failure. 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 Consider also other possibilities including acute neurologic events Plan This patient is to be further worked up. Obviously, there are certain issues that needs to be addressed including her morbid obesity and obesity hypoventilation syndrome and obstructive sleep apnea. I'm not sure if the diagnosis of an established. Nevertheless, the patient has typical features KACI and OHS CAT scan of the brain no contrast CT angiogram of the chest Cover the patient with with a combination of Rocephin and Zithromax Start the patient on insulin for blood sugar control. The patient was started on 41 units of insulin in addition to 14 units with meals and a slight scale coverage May gradually reintroduce some of the oral outpatient medications back Urinalysis is negative Blood cultures Check pro calcitonin Echocardiogram was noted Wean down FiO2 as tolerated currently on 8 L Admitted to the hospital Outpatient sleep study We'll need to CPAP therapy during her inpatient stay. Down going to offer the patient an APAP machine with a full facemask We'll continue to follow
[2023-11-09 11:33] LABS: Appearance,Urine Clear (Clear); Bilirubin,Urine Negative (Negative); Blood,Urine Negative (Negative); Color,Urine Light Yellow; Glucose,Urine (UA) 4+ (Negative); Ketones,Urine Negative (Negative); Leukocyte Esterase,Urine Negative (Negative); Nitrite,Urine Negative (Negative); PH, Urine 5.5 (5.0-8.0); Protein,Urine Negative (Negative); Specific Gravity,Urine 1.028 (1.001-1.035); Urobilinogen,Urine <2.0 mg/dL (<2.0)
--- NOTE | 2023-11-09 12:12 | CT ---
EXAMINATION TYPE: CT brain wo con DATE OF EXAM: 11/09/2023 COMPARISON: None. HISTORY: Altered mental status CT DLP: And 91 mGycm. Automated Exposure Control for Dose Reduction was Utilized. TECHNIQUE: CT scan of the head is performed without contrast. FINDINGS: There is no acute intracranial hemorrhage, mass effect, or midline shift identified. The ventricles and sulci are within normal limits in size. Fan-white matter differentiation is maintain ed. Bilateral aphakia is present. The visualized sinuses are clear. IMPRESSION: No acute intracranial hemorrhage or midline shift is seen.
--- NOTE | 2023-11-09 12:24 | CT ---
EXAMINATION TYPE: CT chest angio for PE DATE OF EXAM: 11/09/2023 COMPARISON: NONE HISTORY: PE, ROSE CT DLP: 1204.8 mGycm. Automated Exposure Control for Dose Reduction was Utilized. CONTRAST: CTA scan of the thorax is performed without and with IV Contrast, patient injected with 100 ml mL of Isovue 370, pulmonary embolism protocol. MIP Images are created on CT scanner and reviewed. FINDINGS: LUNGS: Multifocal areas of groundglass opacity in the right lower lobe and portions of the right midd le lobe are present. Left lung is predominantly clear. There is mild linear scarring anteriorly in th e left midlung. No pleural effusion or pneumothorax seen bilaterally. MEDIASTINUM: Suboptimal bolus without central saddle pulmonary embolism. More dense contrast in the a shannon without aneurysm or dissection. More dense contrast in the SVC. Tiny pericardial effusion is see n. No cardiomegaly. OTHER: Visualized portion of liver is heterogeneously hypodense. IMPRESSION: 1. Suboptimal study without central saddle pulmonary embolism. Cannot exclude segmental and subsegmen neeraj acute pulmonary embolism on this study. 2. Multifocal areas of groundglass opacity in the right lower lobe and portions of right middle lobe suspicious for developing acute infectious process. Correlate clinically.
[2023-11-09 13:23] LABS: Glucose,Whole Blood 339 mg/dL (70-110)
[2023-11-09] MEDS ORDERED: IPRATROPIUM-ALBUTEROL 3 ML NEB INHALATION PRN (16:53)
--- NOTE | 2023-11-09 16:56 | P.HPIM ---
History of Present Illness H&P Date: 11/09/23 Chief Complaint: Dyspnea This is a 43-year-old ,morbidly obese female with past medical history significant for obstructive sleep apnea, diabetes mellitus, hypertension, hyperl ipidemia, bipolar, reporting "breathing issues over the last month which worsened over the last week prompting her to come into the ER. Denies any recent illness, denies anyone sick around her. Denies cough ,denies productive cough, denies O2 use at home. Denies nausea or vomiting. Denies sore throat ,denies congestion, denies stuffy nose. States " im not sick, just can't breathe". Vague historian. Denies chest pain, palpitations. Troponins negative 1. On admission patient was tachycardic, pulse of 120, respiratory rate of 22,afebrile ,blood pressure stable, with O2 sat of 76% on room air. ABGs on 52% FiO2 reported pH is 7.39, pCO2 65, pO2 63, bicarb 39.Chest x-ray reported mild patchy atelectasis or airspace disease in the right lung base Patient is currently maintaining O2 sats in the low 90s on 8 L of high flow nasal cannula. Normal WBC, hemoglobin 13.1, platelets 250, d-dimer 0.5, INR 0.9. Sodium 133, potassium 4.9, bicarbonate 33, BUN 16, creatinine 0.64. Glucose 480. Lactic acid 3.6 decreased to 1.4. Pro-PNP 496, Pro-calcitonin elevated 0.13. UA negative with 4+ glucose. Brain CT, Echo Doppler ordered. Review of Systems ROS Statement: Those systems with pertinent positive or pertinent negative responses have been documented in the HPI. ROS Other: All systems not noted in ROS Statement are negative. Past Medical History Past Medical History: Diabetes Mellitus History of Any Multi-Drug Resistant Organisms: None Reported Past Surgical History: No Surgical Hx Reported Past Psychological History: Bipolar Smoking Status: Never smoker Past Alcohol Use History: None Reported Past Drug Use History: None Reported Medications and Allergies Home Medications Medication Instructions Recorded Confirmed Type Albuterol Sulfate [Albuterol 1 - 2 puff PO RT-Q4H PRN 11/09/23 11/09/23 History Sulfate Hfa] Atorvastatin [Lipitor] 20 mg PO HS 11/09/23 11/09/23 History Brexpiprazole [Rexulti] 0.5 mg PO DAILY 11/09/23 11/09/23 History Celecoxib [Celebrex] 400 mg PO DAILY 11/09/23 11/09/23 History Dextromethorphan HBr/Bupropion 1 tab PO BID 11/09/23 11/09/23 History [Auvelity ER 45-105 mg Tablet] Losartan [Cozaar] 50 mg PO DAILY 11/09/23 11/09/23 History Montelukast [Singulair] 10 mg PO HS 11/09/23 11/09/23 History Pantoprazole Sodium [Protonix] 20 mg PO DAILY 11/09/23 11/09/23 History buPROPion SR [Wellbutrin SR] 100 mg PO DAILY 11/09/23 11/09/23 History hydrOXYzine pamoate 50 mg PO QID PRN 11/09/23 11/09/23 History hydroCHLOROthiazide [Hydrodiuril] 25 mg PO DAILY 11/09/23 11/09/23 History oxyCODONE HCL/ACETAMINOPHEN 1 tab PO TID PRN 11/09/23 11/09/23 History [Percocet 10-325 mg] Allergies Allergy/AdvReac Type Severity Reaction Status Date / Time shellfish derived Allergy Rash/Hives Verified 11/09/23 10:17 Physical Exam Vitals: Vital Signs Temp Pulse Resp BP Pulse Ox 11/09/23 08:28 101 H 24 167/93 91 L 11/09/23 07:12 98.7 F 109 H 22 123/78 92 L 11/09/23 04:23 98 17 131/101 93 L 11/09/23 02:23 108 H 20 160/108 92 L 11/09/23 00:00 24 11/08/23 23:57 112 H 24 92 L 11/08/23 23:53 113 H 24 124/83 86 L 11/08/23 23:37 98.5 F 120 H 22 132/70 76 L Intake and Output 11/08/23 11/09/23 11/09/23 22:59 06:59 14:59 Other: Weight 136.078 kg PHYSICAL EXAM: VITAL SIGNS: [As above] GENERAL: Morbidly obese, Sitting up on stretcher, sleeping, arousable, on 8 L high flow nasal cannula HEENT: Normocephalic Conjunctivae normal. eyes normal. NECK: Positive JVD. No thyroid enlargement. No LNs CARDIOVASCULAR: S1, S2 regular.. No murmur RESPIRATION: Scattered crackles throughout bilateral lungs, two thirds up , bilateral bases diminished ABDOMEN: Soft, obese, nontender . No guarding. no masses palpable. No ascites, No hepatosplenomegaly.Bowel sounds heard. LEGS: 1+ pitting edema, no calf tenderness, positive DP pulses PSYCHIATRY: Alert and oriented X3, mood and affect normal. NERVOUS SYSTEM: Cranial N 2-12 grossly normal. Moves all 4 limbs. Strength and sensation grossly intact.. Skin: Warm and dry, no rash Results CBC & Chem 7: 11/08/23 23:52 11/08/23 23:52 Labs: Abnormal Lab Results - Last 24 Hours (Table) 11/08/23 11/08/23 11/08/23 Range/Units 23:52 23:52 23:52 MCH 24.6 L (25.0-35.0) pg MCHC 29.9 L (31.0-37.0) g/dL RDW 15.9 H (11.5-15.5) % Nucleated RBCs 2 H (0-0) /100 WBC APTT 20.4 L (22.0-30.0) sec ABG pCO2 (35-45) mmHg ABG pO2 (83-108) mmHg ABG HCO3 (21-25) mmol/L ABG O2 Saturation (94-97) % Sodium 133 L (137-145) mmol/L Chloride 93 L (98-107) mmol/L Carbon Dioxide 33 H (22-30) mmol/L Glucose 480 H (74-99) mg/dL POC Glucose (mg/dL) (70-110) mg/dL Plasma Lactic Acid Mac (0.7-2.0) mmol/L ALT 43 H (4-34) U/L Alkaline Phosphatase 136 H (38-126) U/L 11/08/23 11/09/23 11/09/23 Range/Units 23:52 00:15 05:52 MCH (25.0-35.0) pg MCHC (31.0-37.0) g/dL RDW (11.5-15.5) % Nucleated RBCs (0-0) /100 WBC APTT (22.0-30.0) sec ABG pCO2 65 H (35-45) mmHg ABG pO2 63 L (83-108) mmHg ABG HCO3 39 H (21-25) mmol/L ABG O2 Saturation 91.0 L (94-97) % Sodium (137-145) mmol/L Chloride (98-107) mmol/L Carbon Dioxide (22-30) mmol/L Glucose (74-99) mg/dL POC Glucose (mg/dL) 242 H (70-110) mg/dL Plasma Lactic Acid Mac 3.6 H* (0.7-2.0) mmol/L ALT (4-34) U/L Alkaline Phosphatase (38-126) U/L 11/09/23 Range/Units 06:52 MCH (25.0-35.0) pg MCHC (31.0-37.0) g/dL RDW (11.5-15.5) % Nucleated RBCs (0-0) /100 WBC APTT (22.0-30.0) sec ABG pCO2 (35-45) mmHg ABG pO2 (83-108) mmHg ABG HCO3 (21-25) mmol/L ABG O2 Saturation (94-97) % Sodium (137-145) mmol/L Chloride (98-107) mmol/L Carbon Dioxide (22-30) mmol/L Glucose (74-99) mg/dL POC Glucose (mg/dL) 268 H (70-110) mg/dL Plasma Lactic Acid Mac (0.7-2.0) mmol/L ALT (4-34) U/L Alkaline Phosphatase (38-126) U/L Assessment and Plan Assessment: Acute respiratory failure, reports she does not wear oxygen at home, possibly related to community-acquired pneumonia, possibly CHF-echo pending, though proBNP not elevated. Morbid obesity, BMI 55 Obstructive sleep apnea secondary to the above Chronic hypercapnic respiratory failure with metabolic alkalosis Diabetes mellitus, hyperglycemic, hemoglobin A1c pending Hyperlipidemia Hypertension Bipolar Plan: Continue on current medication regime ,monitoring and symptomatic treatment. Echo pending. Continue with antibiotics of azithromycin, cef triaxone. Cultures pending. Pulmonary and cardiology consult in place. Close monitoring of Accu-Cheks, Levemir insulin increased. The impression and plan of care has been dictated as directed. : I performed a history and examination of this patient, discussed the same with the dictator. I agree with the dictator's note ,documented as a scribe. Any additional findings or plans will be noted.
[2023-11-09] MEDS ORDERED: NON FORMULARY DRUG (Celecoxib [Celebrex] 400 MG Capsule) PO SCH (17:00)
[2023-11-09 17:50] LABS: Glucose,Whole Blood 302 mg/dL (70-110)
[2023-11-09] MEDS: LOSARTAN 50 MG TAB PO SCH (18:01)
[2023-11-09] MEDS: PANTOPRAZOLE 40 MG/10 ML VIAL IVP SCH (18:01)
[2023-11-09] MEDS: hydroCHLOROthiazide 25 MG TAB PO SCH (19:24)
[2023-11-09] MEDS: NON FORMULARY DRUG (Brexpiprazole [Rexulti] 0.5 MG Tablet) PO SCH (19:27)
[2023-11-09] MEDS: IPRATROPIUM-ALBUTEROL 3 ML NEB INHALATION SCH (19:40)
[2023-11-09] MEDS ORDERED: INSULIN DETEMIR (LEVEMIR) 100 UNIT/ML SYR SQ SCH (21:00)
[2023-11-09] MEDS: ATORVASTATIN 20 MG TAB PO SCH (21:05)
[2023-11-09] MEDS: MONTELUKAST 10 MG TAB PO SCH (21:06)
[2023-11-09 22:17] LABS: Glucose,Whole Blood 203 mg/dL (70-110)
[2023-11-09] MEDS: BUPROPION PO SCH (23:12)
[2023-11-09] MEDS: DEXTROMETHORPHAN HBR PO SCH (23:12)
[2023-11-09] MEDS: [UNRECOGNIZED DRUG - OTHER] PO SCH (23:12)
[2023-11-09] MEDS: INSULIN DETEMIR (LEVEMIR) 100 UNIT/ML SYR SQ SCH (23:14)
[2023-11-09] MEDS: buPROPion SR 100 MG TABLET.ER PO SCH (23:15)
[2023-11-10 05:54] LABS: Glucose,Whole Blood 313 mg/dL (70-110)
[2023-11-10] MEDS: INSULIN ASPART (NovoLOG) 100 UNIT/ML VIAL SQ SCH ×7 (06:39→20:50)
[2023-11-10] MEDS: AZITHROMYCIN 500 MG TAB PO SCH (06:39)
[2023-11-10] MEDS: IPRATROPIUM-ALBUTEROL 3 ML NEB INHALATION SCH ×4 (07:39→21:32)
[2023-11-10] MEDS: LOSARTAN 50 MG TAB PO SCH (08:34)
[2023-11-10] MEDS: hydroCHLOROthiazide 25 MG TAB PO SCH (08:34)
[2023-11-10] MEDS: buPROPion SR 100 MG TABLET.ER PO SCH (08:35)
[2023-11-10] MEDS: BUPROPION PO SCH ×2 (08:35→20:50)
[2023-11-10] MEDS: DEXTROMETHORPHAN HBR PO SCH ×2 (08:35→20:50)
[2023-11-10] MEDS: [UNRECOGNIZED DRUG - OTHER] PO SCH ×2 (08:35→20:50)
[2023-11-10] MEDS: NON FORMULARY DRUG (Brexpiprazole [Rexulti] 0.5 MG Tablet) PO SCH (08:36)
--- NOTE | 2023-11-10 08:58 | XR ---
EXAMINATION TYPE: XR chest 2V DATE OF EXAM: 11/10/2023 COMPARISON: 11/09/2023 HISTORY: Pneumonia TECHNIQUE: Frontal and lateral views of the chest are obtained. FINDINGS: There is no focal air space opacity, pleural effusion, or pneumothorax seen. The cardiac silhouette size is within normal limits. The osseous structures are intact. IMPRESSION: No acute cardiopulmonary process.
[2023-11-10] MEDS: PANTOPRAZOLE 40 MG/10 ML VIAL IVP SCH (09:11)
[2023-11-10 11:51] LABS: Glucose,Whole Blood 510 mg/dL (70-110)
[2023-11-10 11:53] LABS: Glucose,Whole Blood 408 mg/dL (70-110)
--- NOTE | 2023-11-10 12:43 | P.PN ---
Subjective Progress Note Date: 11/10/23 I saw this patient in emergency department. She is a 43-year-old morbidly obese female patient IS A BODY MASS INDEX OF 54.9. The patient was has less for shortness of breath. Unfortunately, no records are available from emergency and the physician on-call has left the hospital and the patient herself is a poor historian. She was unable to volunteer much of history. At time of arrival, the patient was sleeping and she was having active apneas and I do suspect that she has underlying obstructive sleep apnea. Upon arousal, she was not fully appropriate and she was somewhat confused and the information which provided was not reliable. She admits to have shortness of breath and she denies having any chest pain. She denied any, smoking history. Denies having any lung disease such as asthma or emphysema. Denies having any congestion heart failure. Hemodynamically she was stable. She was on 8 L of oxygen by nasal cannula. The chest x-ray showed mild patchy atelectatic changes/airspace disease in the right lung base. Echo of the heart was also done and the patient was found and left antegrade ejection fraction of 65-70%. She has a hyperdynamic LV and mother thinks the septal wall thickening and moderate increase in posterior wall thickness in the left ventricular cavity was normal. No significant valvular disease was noted. Meanwhile, the patient's blood work shows a WBC count of 10.3, hemoglobin at 13.1 and a platelet count is up to 50. Blood gas was done on 50% FiO2 this with the patient 7.39 with episodes of 65 and pO2 of 63. BUN is at 60 with a creatinine of 0.6 and a bicarb level is at 33. The glucose was at 339. Lactic acid level initially was at 3.6 and dropped down to 1.4 and a UA was negative for infection and she had +4 glucose. Pro-calcitonin level was at 0.13. ProBNP level was 496. 11/10/2023, the patient is less short of breath and currently is in 60s of oxygen by nasal cannula. She is being treated for pneumonia. She has obviously raises obstructive sleep apnea. She will be given a CPAP machine to be used overnight. She remains on Rocephin and Zithromax. She is also on Levemir insulin. The repeat chest x-ray from today shows no acute cardiac pulmonary process. Blood sugar management as per medicine. The patient has opted lactic acid level down to 1.4. She remains on a combination of Rocephin and Zithromax. CTA of the chest showed no evidence of any pulmonary embolism. D-dimer was low. Echocardiogram showed a preserved LV function, normal LV, dilated RV with hypokinesis of the free wall of the RV. Objective - Vital Signs Vital signs: Vital Signs Temp 97.8 F 11/10/23 06:54 Pulse 96 11/10/23 07:52 Resp 18 11/10/23 06:54 BP 93/48 11/10/23 06:54 Pulse Ox 93 L 11/10/23 07:42 FiO2 Intake & Output 11/09/23 11/10/23 11/10/23 18:59 06:59 18:59 Intake Total 450 Output Total 250 Balance 200 Weight 136.078 kg Intake: Oral 450 Output: Urine 250 Other: Voiding Method External Catheter # Voids 2 1 - Exam Morbidly obese, calm and comfortable on 6 L O2 nasal cannula Head exam was generally normal. There was no scleral icterus or corneal arcus. Mucous membranes were moist. Neck was supple and without jugular venous distension, thyromegaly, or carotid bruits. Carotids were easily palpable bilaterally. There was no adenopathy. The patient has significant crowding of posterior pharynx and the patient is a Mallampati class IV Lungs sounds are diminished bilaterally and some few crackles in lung bases are appreciated Cardiac exam revealed the PMI to be normally situated and sized. The rhythm was regular and no extrasystoles were noted during several minutes of auscultation. The first and second heart sounds were normal and physiologic splitting of the second heart sound was noted. There were no murmurs, rubs, clicks, or gallops. Abdomen is obese and soft.Abdominal exam revealed normal bowel sounds. The abdomen was soft, non-tender, and without masses, organomegaly, or appreciable enlargement of the abdominal aorta. Examination of the extremities revealed easily palpable radial, femoral and pedal pulses. There was no cyanosis, clubbing or edema. Examination of the skin revealed no evidence of significant rashes, suspicious appearing nevi or other concerning lesions. Neurologically, arousable. Very sleepy and the patient is going all 4 extremities without any limitation. - Labs CBC & Chem 7: 11/08/23 23:52 11/08/23 23:52 Labs: Abnormal Lab Results - Last 24 Hours (Table) 11/08/23 11/09/23 11/09/23 Range/Units 23:52 11:24 11:24 POC Glucose (mg/dL) (70-110) mg/dL Procalcitonin 0.13 H 0.13 H (0.02-0.09) ng/mL Urine Glucose (UA) 4+ H (Negative) 11/09/23 11/09/23 11/09/23 Range/Units 13:21 17:48 22:16 POC Glucose (mg/dL) 339 H 302 H 203 H (70-110) mg/dL Procalcitonin (0.02-0.09) ng/mL Urine Glucose (UA) (Negative) 11/10/23 Range/Units 05:53 POC Glucose (mg/dL) 313 H (70-110) mg/dL Procalcitonin (0.02-0.09) ng/mL Urine Glucose (UA) (Negative) Assessment and Plan Plan: Acute on chronic hypoxic respiratory failure, consider underlying pneumonia. CHF is felt to be less likely. Patient is currently on 6 L. Echo cardiac there was within normal limits. ProBNP level is nonelevated. Follow-up chest x-ray from today shows no acute abnormalities. Suspect chronic hypoxemia possibility to morbid obesity. No children of this underlying chronic lung disease Chronic hypercapnic respiratory failure the patient's blood gases showing well compensated chronic hypercapnic respiratory failure. She also has chronic metabolic alkalosis Morbid obesity with obesity hypoventilation syndrome and obstructive sleep apnea, clinically suspected although this has not been officially confirmed Hypertension Hyperlipidemia Diabetes mellitus with elevated blood sugars, this could be a new diagnosis that I do not see any diabetic medication at the patient's been taken on outpatient basis Diminished level of consciousness, sleepiness, could be related to obstructive sleep apnea. Consider also other possibilities including acute neurologic events Plan Continue attempts to wean down FiO2 further Provide incentive spirometer This patient is to be further worked up. Obviously, there are certain issues that needs to be addressed including her morbid obesity and obesity hypoventilation syndrome and obstructive sleep apnea. I'm not sure if the diagnosis of an established. Nevertheless, the patient has typical features KACI and OHS CAT scan of the brain no contrast showed no acute abnormalities and the patient's mentation is within normal limits CT angiogram of the chest shows no evidence of any pulmonary embolism and the d- dimer is low Keep the patient with with a combination of Rocephin and Zithromax Start the patient on insulin for blood sugar control. The patient was started on 45 units of insulin in addition to 15 units with meals and a slight scale coverage, blood sugar management as per medicine Urinalysis is negative Blood cultures Check pro calcitonin was mildly elevated at 0.13 Echocardiogram was noted Wean down FiO2 as tolerated currently on 6 L Admitted to the hospital Outpatient sleep study We'll need to CPAP therapy during her inpatient stay. Down going to offer the patient an APAP machine with a full facemask We'll continue to follow
--- NOTE | 2023-11-10 13:17 | P.PN ---
Subjective Progress Note Date: 11/10/23 This is a 43-year-old ,morbidly obese female with past medical history significant for obstructive sleep apnea, diabetes mellitus, hypertension, hyperlipidemia, bipolar, reporting "breathing issues over the last month which worsened over the last week prompting her to come into the ER. Denies any recent illness, denies anyone sick around her. Denies cough ,denies productive cough, denies O2 use at home. Denies nausea or vomiting. Denies sore throat ,denies congestion, denies stuffy nose. States " im not sick, just can't breathe". Vague historian. Denies chest pain, palpitations. Troponins ne gative 1. On admission patient was tachycardic, pulse of 120, respiratory rate of 22,afebrile ,blood pressure stable, with O2 sat of 76% on room air. ABGs on 52% FiO2 reported pH is 7.39, pCO2 65, pO2 63, bicarb 39.Chest x-ray reported mild patchy atelectasis or airspace disease in the right lung base Patient is currently maintaining O2 sats in the low 90s on 8 L of high flow nasal cannula. Normal WBC, hemoglobin 13.1, platelets 250, d-dimer 0.5, INR 0.9. Sodium 133, potassium 4.9, bicarbonate 33, BUN 16, creatinine 0.64. Glucose 480. Lactic acid 3.6 decreased to 1.4. Pro-PNP 496, Pro-calcitonin elevated 0.13. UA negative with 4+ glucose. Brain CT, Echo Doppler ordered. 11/10. Patient seen and examined. Currently on 6 L of oxygen. Gets short of breath on exertion. Complaining of productive cough. REVIEW OF SYSTEMS: CONSTITUTIONAL: No fever, no malaise,. CARDIOVASCULAR: No chest pain, no palpitations, no syncope. PULMONARY: As mentioned above GASTROINTESTINAL: No diarrhea, no nausea, no vomiting, no abdominal pain. NEUROLOGICAL: No headaches, no weakness, PHYSICAL EXAMINATION: GENERAL: The patient is alert and oriented x3, not in any acute distress. Well developed, well nourished. HEENT: Pupils are round and equally reacting to light. EOMI. No scleral icterus. No conjunctival pallor. Normocephalic, atraumatic. No pharyngeal erythema. No thyromegaly. CARDIOVASCULAR: S1 and S2 present. No murmurs, rubs, or gallops. PULMONARY: Coarse breath some bilaterally, no crackles audible ABDOMEN: Soft, nontender, nondistended, normoactive bowel sounds. No palpable organomegaly. MUSCULOSKELETAL: No joint swelling or deformity. EXTREMITIES: No cyanosis, clubbing, or pedal edema. NEUROLOGICAL: Gross neurological examination did not reveal any focal deficits. SKIN: No rashes. Assessment and plan Acute on chronic hypoxic respiratory failure Bacterial pneumonia Morbid obesity, BMI 55 Obstructive sleep apnea Diabetes mellitus, hyperglycemic, hemoglobin A1c pending Hyperlipidemia Hypertension Bipolar Monitor vital signs Monitor CBC Monitor CMP Continue telemetry monitoring Encourage use of incentive spirometer Continue breathing treatment Continue IV Rocephin and azithromycin 2-D echo done showed normal LV size with hyperdynamic LV function. Dilated right ventricle with hypokinesis of the free wall of the right ventricle Pulmonary following Cardiology consulted Labs and medication were reviewed.. Continue same treatment. Continue with symptomatic treatment. Resume home medication. Monitor labs and vitals. DVT and GI prophylaxis. Further recommendations as per clinical course of the patient Dictation was produced using [employer] dictation software. please excuse any grammatical, word or spelling errors. Objective - Vital Signs Vital signs: Vital Signs Temp 97.8 F 11/10/23 06:54 Pulse 96 11/10/23 07:52 Resp 18 11/10/23 06:54 BP 93/48 11/10/23 06:54 Pulse Ox 93 L 11/10/23 07:42 FiO2 Intake & Output 11/09/23 11/10/23 11/10/23 18:59 06:59 18:59 Intake Total 450 Output Total 250 Balance 200 Weight 136.078 kg Intake: Oral 450 Output: Urine 250 Other: Voiding Method External Catheter # Voids 2 1 - Labs CBC & Chem 7: 11/08/23 23:52 11/08/23 23:52 Labs: Abnormal Lab Results - Last 24 Hours (Table) 11/08/23 11/09/23 11/09/23 Range/Units 23:52 11:24 11:24 POC Glucose (mg/dL) (70-110) mg/dL Procalcitonin 0.13 H 0.13 H (0.02-0.09) ng/mL Urine Glucose (UA) 4+ H (Negative) 11/09/23 11/09/23 11/09/23 Range/Units 13:21 17:48 22:16 POC Glucose (mg/dL) 339 H 302 H 203 H (70-110) mg/dL Procalcitonin (0.02-0.09) ng/mL Urine Glucose (UA) (Negative) 11/10/23 Range/Units 05:53 POC Glucose (mg/dL) 313 H (70-110) mg/dL Procalcitonin (0.02-0.09) ng/mL Urine Glucose (UA) (Negative)
[2023-11-10 14:39] VITALS: BMI 54.8
[2023-11-10 16:44] LABS: Glucose,Whole Blood 306 mg/dL (70-110)
--- NOTE | 2023-11-10 19:13 | P.CRDCN ---
History of Present Illness Consult date: 11/10/23 History of present illness: HISTORY OF PRESENTING ILLNESS 43-year-old morbidly obese patient presented with worsening shortness of breath. She had evidence of elevated lactate, mildly elevated Procan levels on admission. Her admission working diagnosis is cardiac or pneumonia. Cardiology was consulted to evaluate if patient has any congestive heart failure or not. ECG shows sinus tachycardia with poor R-wave progression most likely due to body habitus CTA chest showed no evidence of PE or dissection. It did show groundglass opacities in lung consistent with pneumonia REVIEW OF SYSTEMS 14 point review of system is negative except what is mentioned above in HPI. PHYSICAL EXAMINATION Vital signs reviewed. . Lungs: Mild rhonchi audible in bilateral lung slaughter. Heart: Regular rate and rhythm, S1-S2, no S3, no murmur or rub. Abdomen: Soft nontender, Extremities: No edema, ASSESSMENT Acute hypoxic respiratory failure due to cardiac or pneumonia Suspect Obesity hypoventilation syndrome Suspect Chronic hypoxemia and hypercapnia Mildly dilated RV likely due to undiagnosed pulmonary hypertension from obesity hypoventilation syndrome Hypertension Dyslipidemia Type II Diabetes Morbid obesity PLAN Less likely congestive heart failure. Mild RV dilatation Continue supportive treatment as per pulmonary team and primary team Continue losartan, atorvastatin Diuretic as needed At this time cardiology team will sign off. Patient needs outpatient sleep study evaluation and pulmonary hypertension evaluation Outpatient follow-up with cardiology Past Medical History Past Medical History: Diabetes Mellitus Additional Past Medical History / Comment(s): obesity History of Any Multi-Drug Resistant Organisms: None Reported Past Surgical History: No Surgical Hx Reported Past Anesthesia/Blood Transfusion Reactions: No Reported Reaction Past Psychological History: Bipolar Smoking Status: Never smoker Past Alcohol Use History: None Reported Past Drug Use History: None Reported Medications and Allergies Home Medications Medication Instructions Recorded Confirmed Type Albuterol Sulfate [Albuterol 1 - 2 puff PO RT-Q4H PRN 11/09/23 11/09/23 History Sulfate Hfa] Atorvastatin [Lipitor] 20 mg PO HS 11/09/23 11/09/23 History Brexpiprazole [Rexulti] 0.5 mg PO DAILY 11/09/23 11/09/23 History Celecoxib [Celebrex] 400 mg PO DAILY 11/09/23 11/09/23 History Dextromethorphan HBr/Bupropion 1 tab PO BID 11/09/23 11/09/23 History [Auvelity ER 45-105 mg Tablet] Losartan [Cozaar] 50 mg PO DAILY 11/09/23 11/09/23 History Montelukast [Singulair] 10 mg PO HS 11/09/23 11/09/23 History Pantoprazole Sodium [Protonix] 20 mg PO DAILY 11/09/23 11/09/23 History buPROPion SR [Wellbutrin SR] 100 mg PO DAILY 11/09/23 11/09/23 History hydrOXYzine pamoate 50 mg PO QID PRN 11/09/23 11/09/23 History hydroCHLOROthiazide [Hydrodiuril] 25 mg PO DAILY 11/09/23 11/09/23 History oxyCODONE HCL/ACETAMINOPHEN 1 tab PO TID PRN 11/09/23 11/09/23 History [Percocet 10-325 mg] Allergies Allergy/AdvReac Type Severity Reaction Status Date / Time shellfish derived Allergy Rash/Hives Verified 11/09/23 10:17 Physical Exam Vitals: Vital Signs Temp Pulse Pulse Resp BP BP Pulse Ox 11/10/23 15:30 96 11/10/23 15:24 98 11/10/23 14:27 98.0 F 98 20 124/64 87 L 11/10/23 11:20 96 11/10/23 11:11 92 11/10/23 07:52 96 11/10/23 07:42 94 93 L 11/10/23 06:54 97.8 F 104 H 18 93/48 98 11/10/23 06:03 95 11/10/23 02:14 97.6 F 94 18 106/70 92 L 11/09/23 22:56 97.6 F 92 20 94/63 91 L 11/09/23 22:11 97.8 F 98 22 114/84 92 L 11/09/23 19:49 103 H 11/09/23 19:40 101 H 11/09/23 19:28 101 H 20 132/72 94 L Intake and Output 11/10/23 11/10/23 11/10/23 06:59 14:59 22:59 Intake Total 450 Output Total 250 Balance 200 Intake: Oral 450 Output: Urine 250 Other: Voiding Method External Catheter # Voids 2 1 1 Weight 136.078 kg Results 11/08/23 23:52 11/08/23 23:52 Current Medications Generic Name Dose Route Start Last Admin Trade Name Freq PRN Reason Stop Dose Admin Albuterol/Ipratropium 3 ml 11/09/23 20:00 11/10/23 15:22 Ipratropium-Albuterol 3 Ml Neb INHALATION 3 ml RT-QID CHARLY Administration Albuterol/Ipratropium 3 ml 11/09/23 16:53 Ipratropium-Albuterol 3 Ml Neb INHALATION RT-Q2H PRN Shortness Of Breath Or Wheezing Atorvastatin Calcium 20 mg 11/09/23 21:00 11/09/23 21:05 Atorvastatin 20 Mg Tab PO 20 mg HS CHARLY Administration Azithromycin 500 mg 11/10/23 06:00 11/10/23 06:39 Azithromycin 500 Mg Tab PO 11/11/23 06:01 500 mg DAILY@0600 CHARLY Administration Protocol Bupropion HCl 100 mg 11/09/23 17:45 11/10/23 08:35 Bupropion Sr 100 Mg Tablet.Er PO 100 mg DAILY CHARLY Administration Dextrose/Water 25 ml 11/09/23 06:35 Dextrose 50% Syringe 50 Ml IVP PER PROTOCOL PRN Hypoglycemia Protocol Dextrose/Water 50 ml 11/09/23 06:35 Dextrose 50% Syringe 50 Ml IVP PER PROTOCOL PRN Hypoglycemia Protocol Hydrochlorothiazide 25 mg 11/09/23 17:00 11/10/23 08:34 Hydrochlorothiazide 25 Mg Tab PO 25 mg DAILY CHARLY Administration Ceftriaxone Sodium 2 gm/ 50 mls @ 100 mls/hr 11/09/23 23:00 11/09/23 23:15 Sodium Chloride IVPB 11/12/23 23:29 100 mls/hr Q24H CHARLY Administration Protocol Insulin Aspart 0 unit 11/09/23 07:30 11/10/23 17:35 Insulin Aspart (Novolog) 100 Unit/Ml Vial SQ 8 unit ACHS CHARLY Administration Protocol Insulin Aspart 15 unit 11/09/23 17:30 11/10/23 17:35 Insulin Aspart (Novolog) 100 Unit/Ml Vial SQ 15 unit AC-TID CHARLY Administration Insulin Detemir 45 unit 11/09/23 21:00 11/09/23 23:14 Insulin Detemir (Levemir) 100 Unit/Ml Syr SQ 45 unit HS CHARLY Administration Losartan Potassium 50 mg 11/09/23 17:00 11/10/23 08:34 Losartan 50 Mg Tab PO 50 mg DAILY CHARLY Administration Miscellaneous Information 1 each 11/09/23 06:01 Pneumonia Protocol Utilized 1 Each Misc PO ONCE PRN Per Protocol Montelukast Sodium 10 mg 11/09/23 21:00 11/09/23 21:06 Montelukast 10 Mg Tab PO 10 mg HS CHARLY Administration Non-Formulary Medication 1 tab 11/09/23 21:00 11/10/23 08:35 Dextromethorphan Hbr/Bupropion [Auvelity Er 45-105 Mg Tablet] PO Not Given BID CHARLY Non-Formulary Medication 0.5 mg 11/09/23 17:00 11/10/23 08:36 Brexpiprazole [Rexulti] PO Not Given DAILY CHARLY Pantoprazole Sodium 40 mg 11/09/23 17:00 11/10/23 09:11 Pantoprazole 40 Mg/10 Ml Vial IVP 40 mg DAILY CHARLY Administration Intake and Output 11/10/23 11/10/23 11/10/23 06:59 14:59 22:59 Intake Total 450 Output Total 250 Balance 200 Intake: Oral 450 Output: Urine 250 Other: Voiding Method External Catheter # Voids 2 1 1 Weight 136.078 kg Patient Weight 11/11/23 06:59 Weight 136.078 kg 11/08/23 23:52 11/08/23 23:52
[2023-11-10 20:43] LABS: Glucose,Whole Blood 331 mg/dL (70-110)
[2023-11-10] MEDS: INSULIN DETEMIR (LEVEMIR) 100 UNIT/ML SYR SQ SCH (20:50)
[2023-11-10] MEDS: MONTELUKAST 10 MG TAB PO SCH (20:50)
[2023-11-10] MEDS: ATORVASTATIN 20 MG TAB PO SCH (20:50)
[2023-11-11 05:45] LABS: Glucose,Whole Blood 347 mg/dL (70-110)
[2023-11-11] MEDS ORDERED: AZITHROMYCIN 500 MG TAB PO SCH (06:00)
[2023-11-11] MEDS: AZITHROMYCIN 500 MG TAB PO SCH (06:23)
[2023-11-11] MEDS: INSULIN ASPART (NovoLOG) 100 UNIT/ML VIAL SQ SCH ×7 (06:24→21:10)
[2023-11-11] MEDS: buPROPion SR 100 MG TABLET.ER PO SCH (07:34)
[2023-11-11] MEDS: NON FORMULARY DRUG (Brexpiprazole [Rexulti] 0.5 MG Tablet) PO SCH (07:39)
[2023-11-11] MEDS: BUPROPION PO SCH ×2 (07:39→21:05)
[2023-11-11] MEDS: [UNRECOGNIZED DRUG - OTHER] PO SCH ×2 (07:39→21:05)
[2023-11-11] MEDS: DEXTROMETHORPHAN HBR PO SCH ×2 (07:39→21:05)
[2023-11-11] MEDS: IPRATROPIUM-ALBUTEROL 3 ML NEB INHALATION SCH ×4 (07:55→22:08)
[2023-11-11] MEDS: ACETAMINOPHEN TAB 325 MG TAB PO PRN (08:37)
[2023-11-11] MEDS: PANTOPRAZOLE 40 MG/10 ML VIAL IVP SCH (08:37)
[2023-11-11] MEDS: LOSARTAN 50 MG TAB PO SCH (10:17)
[2023-11-11] MEDS: hydroCHLOROthiazide 25 MG TAB PO SCH (10:17)
[2023-11-11 11:52] LABS: Glucose,Whole Blood 303 mg/dL (70-110)
--- NOTE | 2023-11-11 12:40 | P.PN ---
Subjective Progress Note Date: 11/11/23 This is a 43-year-old ,morbidly obese female with past medical history significant for obstructive sleep apnea, diabetes mellitus, hypertension, hyperlipidemia, bipolar, reporting "breathing issues over the last month which worsened over the last week prompting her to come into the ER. Denies any recent illness, denies anyone sick around her. Denies cough ,denies productive cough, denies O2 use at home. Denies nausea or vomiting. Denies sore throat ,denies congestion, denies stuffy nose. States " im not sick, just can't breathe". Vague historian. Denies chest pain, palpitations. Troponins ne gative 1. On admission patient was tachycardic, pulse of 120, respiratory rate of 22,afebrile ,blood pressure stable, with O2 sat of 76% on room air. ABGs on 52% FiO2 reported pH is 7.39, pCO2 65, pO2 63, bicarb 39.Chest x-ray reported mild patchy atelectasis or airspace disease in the right lung base Patient is currently maintaining O2 sats in the low 90s on 8 L of high flow nasal cannula. Normal WBC, hemoglobin 13.1, platelets 250, d-dimer 0.5, INR 0.9. Sodium 133, potassium 4.9, bicarbonate 33, BUN 16, creatinine 0.64. Glucose 480. Lactic acid 3.6 decreased to 1.4. Pro-PNP 496, Pro-calcitonin elevated 0.13. UA negative with 4+ glucose. Brain CT, Echo Doppler ordered. 11/10. Patient seen and examined. Currently on 6 L of oxygen. Gets short of breath on exertion. Complaining of productive cough. 11/11. Patient seen and examined. Still complain of shortness of breath on exertion. Denies any chest pain. Currently on 6 L of oxygen REVIEW OF SYSTEMS: CONSTITUTIONAL: No fever, no malaise,. CARDIOVASCULAR: No chest pain, no palpitations, no syncope. PULMONARY: As mentioned above GASTROINTESTINAL: No diarrhea, no nausea, no vomiting, no abdominal pain. NEUROLOGICAL: No headaches, no weakness, PHYSICAL EXAMINATION: GENERAL: The patient is alert and oriented x3, not in any acute distress. Well developed, well nourished. HEENT: Pupils are round and equally reacting to light. EOMI. No scleral icterus. No conjunctival pallor. Normocephalic, atraumatic. No pharyngeal erythema. No thyromegaly. CARDIOVASCULAR: S1 and S2 present. No murmurs, rubs, or gallops. PULMONARY: Coarse breath some bilaterally, no crackles audible ABDOMEN: Soft, nontender, nondistended, normoactive bowel sounds. No palpable organomegaly. MUSCULOSKELETAL: No joint swelling or deformity. EXTREMITIES: No cyanosis, clubbing, or pedal edema. NEUROLOGICAL: Gross neurological examination did not reveal any focal deficits. SKIN: No rashes. Assessment and plan Acute on chronic hypoxic respiratory failure Bacterial pneumonia Morbid obesity, BMI 55 Obstructive sleep apnea Diabetes mellitus, hyperglycemic, hemoglobin A1c pending Hyperlipidemia Hypertension Bipolar Monitor vital signs Monitor CBC Monitor CMP Continue telemetry monitoring Encourage use of incentive spirometer Continue breathing treatment Continue IV Rocephin and azithromycin Monitor blood sugar levels, increase Levemir to 50 units and NovoLog to 18 units with meals 2-D echo done showed normal LV size with hyperdynamic LV function. Dilated right ventricle with hypokinesis of the free wall of the right ventricle Pulmonary following Cardiology consulted. Recommended continuation of losartan and Lipitor. Recommend outpatient follow-up with cardiology and sleep study evaluation Labs and medication were reviewed.. Continue same treatment. Continue with symptomatic treatment. Resume home medication. Monitor labs and vitals. DVT and GI prophylaxis. Further recommendations as per clinical course of the patient Dictation was produced using [employer] dictation software. please excuse any grammatical, word or spelling errors. Objective - Vital Signs Vital signs: Vital Signs Temp 97.9 F 11/11/23 06:48 Pulse 118 H 11/11/23 10:14 Resp 21 11/11/23 06:48 BP 123/76 11/11/23 10:14 Pulse Ox 95 11/11/23 08:00 FiO2 Intake & Output 11/10/23 11/11/23 11/11/23 18:59 06:59 18:59 Weight 136.078 kg Other: Voiding Method Toilet Bedside Commode # Voids 1 2 - Labs CBC & Chem 7: 11/08/23 23:52 11/08/23 23:52 Labs: Abnormal Lab Results - Last 24 Hours (Table) 11/08/23 11/10/23 11/10/23 Range/Units 23:52 11:50 11:52 POC Glucose (mg/dL) 510 H 408 H (70-110) mg/dL Hemoglobin A1c 12.2 H (<=6.0) % 11/10/23 11/10/23 11/11/23 Range/Units 16:43 20:36 05:43 POC Glucose (mg/dL) 306 H 331 H 347 H (70-110) mg/dL Hemoglobin A1c (<=6.0) % Microbiology - Last 24 Hours (Table) 11/09/23 05:02 Blood Culture - Preliminary Blood 11/09/23 05:15 Blood Culture - Preliminary Blood
[2023-11-11 13:34] LABS: Glucose,Whole Blood 332 mg/dL (70-110)
--- NOTE | 2023-11-11 13:57 | P.PN ---
Subjective Progress Note Date: 11/11/23 I saw this patient in emergency department. She is a 43-year-old morbidly obese female patient IS A BODY MASS INDEX OF 54.9. The patient was has less for shortness of breath. Unfortunately, no records are available from emergency and the physician on-call has left the hospital and the patient herself is a poor historian. She was unable to volunteer much of history. At time of arrival, the patient was sleeping and she was having active apneas and I do suspect that she has underlying obstructive sleep apnea. Upon arousal, she was not fully appropriate and she was somewhat confused and the information which provided was not reliable. She admits to have shortness of breath and she denies having any chest pain. She denied any, smoking history. Denies having any lung disease such as asthma or emphysema. Denies having any congestion heart failure. Hemodynamically she was stable. She was on 8 L of oxygen by nasal cannula. The chest x-ray showed mild patchy atelectatic changes/airspace disease in the right lung base. Echo of the heart was also done and the patient was found and left antegrade ejection fraction of 65-70%. She has a hyperdynamic LV and mother thinks the septal wall thickening and moderate increase in posterior wall thickness in the left ventricular cavity was normal. No significant valvular disease was noted. Meanwhile, the patient's blood work shows a WBC count of 10.3, hemoglobin at 13.1 and a platelet count is up to 50. Blood gas was done on 50% FiO2 this with the patient 7.39 with episodes of 65 and pO2 of 63. BUN is at 60 with a creatinine of 0.6 and a bicarb level is at 33. The glucose was at 339. Lactic acid level initially was at 3.6 and dropped down to 1.4 and a UA was negative for infection and she had +4 glucose. Pro-calcitonin level was at 0.13. ProBNP level was 496. 11/10/2023, the patient is less short of breath and currently is in 60s of oxygen by nasal cannula. She is being treated for pneumonia. She has obviously raises obstructive sleep apnea. She will be given a CPAP machine to be used overnight. She remains on Rocephin and Zithromax. She is also on Levemir insulin. The repeat chest x-ray from today shows no acute cardiac pulmonary process. Blood sugar management as per medicine. The patient has opted lactic acid level down to 1.4. She remains on a combination of Rocephin and Zithromax. CTA of the chest showed no evidence of any pulmonary embolism. D-dimer was low. Echocardiogram showed a preserved LV function, normal LV, dilated RV with hypokinesis of the free wall of the RV. 11/11/2023 the patient remains on 6 L O2. Still hypoxic. Unable to tolerate the CPAP well yesterday. She uses for few hours and she ended up quitting the treatment. She remains on antibiotics. She remains on bronchodilators. Using incentive spirometer. Sugar management as per medicine. The patient is on Levemir insulin 15 units along with NovoLog 18 units with meals and a sliding scale coverage. She remains on IV Rocephin. Objective - Vital Signs Vital signs: Vital Signs Temp 97.9 F 11/11/23 06:48 Pulse 104 H 11/11/23 08:10 Resp 21 11/11/23 06:48 BP 92/57 11/11/23 06:48 Pulse Ox 95 11/11/23 08:00 FiO2 Intake & Output 11/10/23 11/11/23 11/11/23 18:59 06:59 18:59 Weight 136.078 kg Other: Voiding Method Toilet Bedside Commode # Voids 1 2 - Exam Morbidly obese, calm and comfortable on 6 L O2 nasal cannula Head exam was generally normal. There was no scleral icterus or corneal arcus. Mucous membranes were moist. Neck was supple and without jugular venous distension, thyromegaly, or carotid bruits. Carotids were easily palpable bilaterally. There was no adenopathy. The patient has significant crowding of posterior pharynx and the patient is a Mallampati class IV Lungs sounds are diminished bilaterally and some few crackles in lung bases are appreciated Cardiac exam revealed the PMI to be normally situated and sized. The rhythm was regular and no extrasystoles were noted during several minutes of auscultation. The first and second heart sounds were normal and physiologic splitting of the second heart sound was noted. There were no murmurs, rubs, clicks, or gallops. Abdomen is obese and soft.Abdominal exam revealed normal bowel sounds. The abdomen was soft, non-tender, and without masses, organomegaly, or appreciable enlargement of the abdominal aorta. Examination of the extremities revealed easily palpable radial, femoral and pedal pulses. There was no cyanosis, clubbing or edema. Examination of the skin revealed no evidence of significant rashes, suspicious appearing nevi or other concerning lesions. Neurologically, arousable. Very sleepy and the patient is going all 4 extremities without any limitation. - Labs CBC & Chem 7: 11/08/23 23:52 11/08/23 23:52 Labs: Abnormal Lab Results - Last 24 Hours (Table) 11/08/23 11/10/23 11/10/23 Range/Units 23:52 11:50 11:52 POC Glucose (mg/dL) 510 H 408 H (70-110) mg/dL Hemoglobin A1c 12.2 H (<=6.0) % 11/10/23 11/10/23 11/11/23 Range/Units 16:43 20:36 05:43 POC Glucose (mg/dL) 306 H 331 H 347 H (70-110) mg/dL Hemoglobin A1c (<=6.0) % Microbiology - Last 24 Hours (Table) 11/09/23 05:02 Blood Culture - Preliminary Blood 11/09/23 05:15 Blood Culture - Preliminary Blood Assessment and Plan Plan: Acute on chronic hypoxic respiratory failure, consider underlying pneumonia. CHF is felt to be less likely. Patient is currently on 6 L. Echo cardiac there was within normal limits. ProBNP level is nonelevated. Follow-up chest x-ray from today shows no acute abnormalities. I suspect that the patient's hypoxemia is chronic and the patient may have chronic recent lung disease secondary to morbid obesity and chronic hypoxemic and hypercapnic respiratory failure. Limited response to antibiotics and the patient is negative for pulmonary embolism based on the CAT scan of the chest. Consider microatelectasis contributing to her hypoxemia in addition. Suspect chronic hypoxemia possibility to morbid obesity. No children of this underlying chronic lung disease Chronic hypercapnic respiratory failure the patient's blood gases showing well compensated chronic hypercapnic respiratory failure. She also has chronic metabolic alkalosis Morbid obesity with obesity hypoventilation syndrome and obstructive sleep apnea, clinically suspected although this has not been officially confirmed Hypertension Hyperlipidemia Diabetes mellitus with elevated blood sugars, this could be a new diagnosis that I do not see any diabetic medication at the patient's been taken on outpatient basis Diminished level of consciousness, sleepiness, could be related to obstructive sleep apnea. Consider also other possibilities including acute neurologic events Plan Continue attempts to wean down FiO2 further, currently on 6 L O2 nasal cannula. Suspect significant microatelectasis and chronic hypoxic respiratory failure due to morbid obesity and obesity related restrictive lung disease. Provide incentive spirometer This patient is to be further worked up. Obviously, there are certain issues that needs to be addressed including her morbid obesity and obesity hypove ntilation syndrome and obstructive sleep apnea. I'm not sure if the diagnosis of an established. Nevertheless, the patient has typical features KACI and [facility] CAT scan of the brain no contrast showed no acute abnormalities and the patient's mentation is within normal limits CT angiogram of the chest shows no evidence of any pulmonary embolism and the d- dimer is low Keep the patient with with a combination of Rocephin Continue Levemir insulin NovoLog per medicine for blood sugar control Blood cultures Check pro calcitonin was mildly elevated at 0.13 Echocardiogram was noted Wean down FiO2 as tolerated currently on 6 L Admitted to the hospital Outpatient sleep study CPAP therapy was offered at the bedside and the patient was unable to tolerate and had difficulties. She uses for few hours and she ended up quitting the treatment. Obtain arterial blood gas assess acid-base status and oxygenation We'll continue to follow
[2023-11-11 16:56] LABS: ABG Base Excess 20.3 mmol/L; ABG Oxygen Saturation 93.2 % (94-97); ABG PCO2 58 mmHg (35-45); ABG PH 7.48 (7.35-7.45); ABG PO2 61 mmHg (83-108); ABG TCO2 46 mmol/L (19-24); Allen Test Performed? Yes
[2023-11-11 16:57] LABS: Glucose,Whole Blood 307 mg/dL (70-110)
[2023-11-11 17:01] LABS: ABG HCO3 44 mmol/L (21-25)
[2023-11-11 20:31] LABS: Glucose,Whole Blood 321 mg/dL (70-110)
[2023-11-11] MEDS: INSULIN DETEMIR (LEVEMIR) 100 UNIT/ML SYR SQ SCH (21:09)
[2023-11-11] MEDS: MONTELUKAST 10 MG TAB PO SCH (21:10)
[2023-11-11] MEDS: ATORVASTATIN 20 MG TAB PO SCH (21:10)
[2023-11-12 05:49] LABS: Glucose,Whole Blood 269 mg/dL (70-110)
[2023-11-12] MEDS: INSULIN ASPART (NovoLOG) 100 UNIT/ML VIAL SQ SCH ×7 (05:58→20:55)
[2023-11-12] MEDS: IPRATROPIUM-ALBUTEROL 3 ML NEB INHALATION SCH ×4 (07:41→21:34)
[2023-11-12] MEDS: PANTOPRAZOLE 40 MG/10 ML VIAL IVP SCH (07:57)
[2023-11-12] MEDS: buPROPion SR 100 MG TABLET.ER PO SCH (07:57)
[2023-11-12] MEDS: hydroCHLOROthiazide 25 MG TAB PO SCH (07:57)
[2023-11-12] MEDS: LOSARTAN 50 MG TAB PO SCH (07:57)
[2023-11-12 09:06] LABS: HCT 46.8 % (37.2-46.3); HGB 13.3 g/dL (12.0-15.0); MCH 23.1 pg (27.0-32.0); MCHC 28.4 g/dL (32.0-37.0); MCV 81.3 FL (80.0-97.0); Mean Platelet Volume 10.4 FL (9.5-12.2); NRBC Per 100 WBC 0 X 10*3/uL (0.00-0.01); Platelet Count 288 X 10*3/uL (140-440); RBC 5.76 X 10*6/uL (4.10-5.20); RDW 16.3 % (11.5-14.5); WBC 11.39 X 10*3/uL (4.50-10.00)
[2023-11-12] MEDS: BUPROPION PO SCH ×2 (10:14→20:48)
[2023-11-12] MEDS: [UNRECOGNIZED DRUG - OTHER] PO SCH ×2 (10:14→20:48)
[2023-11-12] MEDS: DEXTROMETHORPHAN HBR PO SCH ×2 (10:14→20:48)
[2023-11-12] MEDS: NON FORMULARY DRUG (Brexpiprazole [Rexulti] 0.5 MG Tablet) PO SCH (10:14)
[2023-11-12 10:47] LABS: ALT 34 U/L (8-44); AST 25 U/L (13-35); Albumin/Globulin Ratio 1.48 Ratio (1.60-3.17); Alkaline Phosphatase 131 U/L (41-126); BUN/Creat Ratio 22.29 Ratio (12.00-20.00); Blood Urea Nitrogen 15.6 mg/dL (9.0-27.0); Chloride 92 mmol/L (96-109); Globulin 2.7 g/dL (1.6-3.3); Glucose 294 mg/dL (70-110); Potassium 4.8 mmol/L (3.5-5.5); Sodium 138 mmol/L (135-145); Total Bilirubin 0.3 mg/dL (0.3-1.2); Total Protein 6.7 g/dL (6.2-8.2)
[2023-11-12 11:14] LABS: Glucose,Whole Blood 318 mg/dL (70-110)
--- NOTE | 2023-11-12 14:13 | P.PN ---
Subjective Progress Note Date: 11/12/23 This is a 43-year-old ,morbidly obese female with past medical history significant for obstructive sleep apnea, diabetes mellitus, hypertension, hyperlipidemia, bipolar, reporting "breathing issues over the last month which worsened over the last week prompting her to come into the ER. Denies any recent illness, denies anyone sick around her. Denies cough ,denies productive cough, denies O2 use at home. Denies nausea or vomiting. Denies sore throat ,denies congestion, denies stuffy nose. States " im not sick, just can't breathe". Vague historian. Denies chest pain, palpitations. Troponins neg ative 1. On admission patient was tachycardic, pulse of 120, respiratory rate of 22,afebrile ,blood pressure stable, with O2 sat of 76% on room air. ABGs on 52% FiO2 reported pH is 7.39, pCO2 65, pO2 63, bicarb 39.Chest x-ray reported mild patchy atelectasis or airspace disease in the right lung base Patient is currently maintaining O2 sats in the low 90s on 8 L of high flow nasal cannula. Normal WBC, hemoglobin 13.1, platelets 250, d-dimer 0.5, INR 0.9. Sodium 133, potassium 4.9, bicarbonate 33, BUN 16, creatinine 0.64. Glucose 480. Lactic acid 3.6 decreased to 1.4. Pro-PNP 496, Pro-calcitonin elevated 0.13. UA negative with 4+ glucose. Brain CT, Echo Doppler ordered. 11/12/23 Maintained on IV ceftriaxone, nebulized bronchodilators , requiring 6 L nasal cannula O2 to maintain O2 sats in the 90s. Mild tachycardia. Reports she attempted to use BiPAP but the mask scares her-did not use BiPAP last night denies chest pain, palpitations, shortness of breath. Denies cough, congestion, sore throat or stuffy nose. Afebrile. Blood sugars uncontrolled, running in the mid 200s to low 300s. Objective - Vital Signs Vital signs: Vital Signs Temp 97.8 F 11/12/23 06:53 Pulse 100 11/12/23 11:34 Resp 18 11/12/23 08:00 BP 127/85 11/12/23 06:53 Pulse Ox 93 L 11/12/23 11:25 FiO2 Intake & Output 11/11/23 11/12/23 11/12/23 18:59 06:59 18:59 Weight 136.078 kg Other: Voiding Method Toilet Toilet Toilet Bedside Commode Bedside Commode Bedside Commode # Voids 3 2 - Exam PHYSICAL EXAM: VITAL SIGNS: [As above] GENERAL: Alert and oriented 3 ,Morbidly obese, lying in bed, sleepy, arousable, on 6 L O2 nasal cannula HEENT: Normocephalic Conjunctivae normal. eyes normal. NECK: Supple, No JVD. CARDIOVASCULAR: S1, S2 regular. No murmur RESPIRATION: Diminished throughout with fine bibasilar crackles ABDOMEN: Soft, obese, nontender . No guarding. no masses palpable. +BS LEGS: No edema, no calf tenderness, positive DP pulses NERVOUS SYSTEM: Cranial N 2-12 grossly normal. Strength and sensation grossly intact. Skin: Warm and dry, no rash - Labs CBC & Chem 7: 11/12/23 05:27 11/12/23 05:27 Labs: Abnormal Lab Results - Last 24 Hours (Table) 11/11/23 11/11/23 11/11/23 Range/Units 13:33 16:54 16:56 WBC (4.50-10.00) X 10*3/uL RBC (4.10-5.20) X 10*6/uL Hct (37.2-46.3) % MCH (27.0-32.0) pg MCHC (32.0-37.0) g/dL RDW (11.5-14.5) % ABG pH 7.48 H (7.35-7.45) ABG pCO2 58 H (35-45) mmHg ABG pO2 61 L (83-108) mmHg ABG HCO3 44 H* (21-25) mmol/L ABG Total CO2 46 H (19-24) mmol/L ABG O2 Saturation 93.2 L (94-97) % Chloride (96-109) mmol/L Carbon Dioxide (21.6-31.8) mmol/L Anion Gap (4.00-12.00) mmol/L BUN/Creatinine Ratio (12.00-20.00) Ratio Glucose (70-110) mg/dL POC Glucose (mg/dL) 332 H 307 H (70-110) mg/dL Alkaline Phosphatase (41-126) U/L Albumin/Globulin Ratio (1.60-3.17) Ratio 11/11/23 11/12/23 11/12/23 Range/Units 20:26 05:27 05:27 WBC 11.39 H (4.50-10.00) X 10*3/uL RBC 5.76 H (4.10-5.20) X 10*6/uL Hct 46.8 H (37.2-46.3) % MCH 23.1 L (27.0-32.0) pg MCHC 28.4 L (32.0-37.0) g/dL RDW 16.3 H (11.5-14.5) % ABG pH (7.35-7.45) ABG pCO2 (35-45) mmHg ABG pO2 (83-108) mmHg ABG HCO3 (21-25) mmol/L ABG Total CO2 (19-24) mmol/L ABG O2 Saturation (94-97) % Chloride 92 L (96-109) mmol/L Carbon Dioxide 32.0 H (21.6-31.8) mmol/L Anion Gap 14.00 H (4.00-12.00) mmol/L BUN/Creatinine Ratio 22.29 H (12.00-20.00) Ratio Glucose 294 H (70-110) mg/dL POC Glucose (mg/dL) 321 H (70-110) mg/dL Alkaline Phosphatase 131 H (41-126) U/L Albumin/Globulin Ratio 1.48 L (1.60-3.17) Ratio 11/12/23 11/12/23 Range/Units 05:46 11:13 WBC (4.50-10.00) X 10*3/uL RBC (4.10-5.20) X 10*6/uL Hct (37.2-46.3) % MCH (27.0-32.0) pg MCHC (32.0-37.0) g/dL RDW (11.5-14.5) % ABG pH (7.35-7.45) ABG pCO2 (35-45) mmHg ABG pO2 (83-108) mmHg ABG HCO3 (21-25) mmol/L ABG Total CO2 (19-24) mmol/L ABG O2 Saturation (94-97) % Chloride (96-109) mmol/L Carbon Dioxide (21.6-31.8) mmol/L Anion Gap (4.00-12.00) mmol/L BUN/Creatinine Ratio (12.00-20.00) Ratio Glucose (70-110) mg/dL POC Glucose (mg/dL) 269 H 318 H (70-110) mg/dL Alkaline Phosphatase (41-126) U/L Albumin/Globulin Ratio (1.60-3.17) Ratio Microbiology - Last 24 Hours (Table) 11/09/23 05:02 Blood Culture - Preliminary Blood 11/09/23 05:15 Blood Culture - Preliminary Blood Assessment and Plan Assessment: Acute respiratory failure, reports she does not wear oxygen at home, possibly related to community-acquired pneumonia, doubt CHF-echo reported normal LV function, proBNP not elevated. PPE neuroE ruled out. Suspect chronic hypoxemia secondary to morbid obesity, obesity hypoventilation syndrome Morbid obesity, BMI 55 Obstructive sleep apnea secondary to the above Chronic hypercapnic respiratory failure with metabolic alkalosis Diabetes mellitus, hyperglycemic, hemoglobin A1c 12.2 Hyperlipidemia Hypertension Bipolar Plan: Continue on current medication regime ,monitoring and symptomatic cayden atment. Levemir insulin increased ,close monitoring of Accu-Cheks. Titration of oxygen in progress. Patient will need a glucometer, diabetic supplies at discharge-case management assistance. The impression and plan of care has been dictated as directed. : I performed a history and examination of this patient, discussed the same with the dictator. I agree with the dictator's note ,documented as a scribe. Any additional findings or plans will be noted.
[2023-11-12] MEDS ORDERED: ALPRAZolam 0.5 MG TAB PO STA (14:18)
[2023-11-12] MEDS: INSULIN DETEMIR (LEVEMIR) 100 UNIT/ML SYR SQ SCH ×2 (14:30→20:54)
--- NOTE | 2023-11-12 15:18 | P.PN ---
Subjective Progress Note Date: 11/12/23 I saw this patient in emergency department. She is a 43-year-old morbidly obese female patient IS A BODY MASS INDEX OF 54.9. The patient was has less for shortness of breath. Unfortunately, no records are available from emergency and the physician on-call has left the hospital and the patient herself is a poor historian. She was unable to volunteer much of history. At time of arrival, the patient was sleeping and she was having active apneas and I do suspect that she has underlying obstructive sleep apnea. Upon arousal, she was not fully appropriate and she was somewhat confused and the information which provided was not reliable. She admits to have shortness of breath and she denies having any chest pain. She denied any, smoking history. Denies having any lung disease such as asthma or emphysema. Denies having any congestion heart failure. Hemodynamically she was stable. She was on 8 L of oxygen by nasal cannula. The chest x-ray showed mild patchy atelectatic changes/airspace disease in the right lung base. Echo of the heart was also done and the patient was found and left a ntegrade ejection fraction of 65-70%. She has a hyperdynamic LV and mother thinks the septal wall thickening and moderate increase in posterior wall thickness in the left ventricular cavity was normal. No significant valvular disease was noted. Meanwhile, the patient's blood work shows a WBC count of 10.3, hemoglobin at 13.1 and a platelet count is up to 50. Blood gas was done on 50% FiO2 this with the patient 7.39 with episodes of 65 and pO2 of 63. BUN is at 60 with a creatinine of 0.6 and a bicarb level is at 33. The glucose was at 339. Lactic acid level initially was at 3.6 and dropped down to 1.4 and a UA was negative for infection and she had +4 glucose. Pro-calcitonin level was at 0.13. ProBNP level was 496. 11/10/2023, the patient is less short of breath and currently is in 60s of oxygen by nasal cannula. She is being treated for pneumonia. She has obviously raises obstructive sleep apnea. She will be given a CPAP machine to be used overnight. She remains on Rocephin and Zithromax. She is also on Levemir insulin. The repeat chest x-ray from today shows no acute cardiac pulmonary process. Blood sugar management as per medicine. The patient has opted lactic acid level down to 1.4. She remains on a combination of Rocephin and Zithromax. CTA of the chest showed no evidence of any pulmonary embolism. D-dimer was low. Echocardiogram showed a preserved LV function, normal LV, dilated RV with hypokinesis of the free wall of the RV. 11/11/2023 the patient remains on 6 L O2. Still hypoxic. Unable to tolerate the CPAP well yesterday. She uses for few hours and she ended up quitting the treatment. She remains on antibiotics. She remains on bronchodilators. Using incentive spirometer. Sugar management as per medicine. The patient is on Levemir insulin 15 units along with NovoLog 18 units with meals and a sliding scale coverage. She remains on IV Rocephin. The patient is seen today 11/12/2023 in follow-up on the regular medical floor. She is currently resting in bed. Awake and alert in no acute distress. She is maintaining O2 saturations in the 90s on 6 L high flow nasal cannula. She is not been tolerating the CPAP due to anxiety. She is feeling better today compared to yesterday. Her pro-calcitonin was 0.13. She remains on ce ftriaxone. Continued on bronchodilators. Blood cultures reveal no growth. White count 11.3. Hemoglobin 13.3. Platelets 288. Sodium 138. Potassium 4.8. Bicarb 32. BUN 16. Creatinine 0.7. Glucose 294. AST 25. ALT 34. Objective - Vital Signs Vital signs: Vital Signs Temp 97.6 F 11/12/23 13:30 Pulse 112 H 11/12/23 13:30 Resp 19 11/12/23 13:30 BP 97/68 11/12/23 13:30 Pulse Ox 93 L 11/12/23 13:30 FiO2 Intake & Output 11/11/23 11/12/23 11/12/23 18:59 06:59 18:59 Weight 136.078 kg Other: Voiding Method Toilet Toilet Toilet Bedside Commode Bedside Commode Bedside Commode # Voids 3 2 - Exam GENERAL EXAM: Alert, obese 43-year-old female, on 6 L nasal cannula, fairly comfortable in no apparent distress. HEAD: Normocephalic. EYES: Normal reaction of pupils, equal size. NOSE: Clear with pink turbinates. THROAT: There is crowding of the posterior pharynx. No erythema or exudates. NECK: No masses, no JVD. CHEST: No chest wall deformity. LUNGS: Equal air entry with few scattered crackles. CVS: S1 and S2 normal with no audible murmur, regular rhythm. ABDOMEN: No hepatosplenomegaly, normal bowel sounds, no guarding or rigidity. SPINE: No scoliosis or deformity SKIN: No rashes CENTRAL NERVOUS SYSTEM: No focal deficits, tone is normal in all 4 extremities. EXTREMITIES: There is no peripheral edema. No clubbing, no cyanosis. Peripheral pulses are intact. - Labs CBC & Chem 7: 11/12/23 05:27 11/12/23 05:27 Labs: Abnormal Lab Results - Last 24 Hours (Table) 11/11/23 11/11/23 11/11/23 Range/Units 16:54 16:56 20:26 WBC (4.50-10.00) X 10*3/uL RBC (4.10-5.20) X 10*6/uL Hct (37.2-46.3) % MCH (27.0-32.0) pg MCHC (32.0-37.0) g/dL RDW (11.5-14.5) % ABG pH 7.48 H (7.35-7.45) ABG pCO2 58 H (35-45) mmHg ABG pO2 61 L (83-108) mmHg ABG HCO3 44 H* (21-25) mmol/L ABG Total CO2 46 H (19-24) mmol/L ABG O2 Saturation 93.2 L (94-97) % Chloride (96-109) mmol/L Carbon Dioxide (21.6-31.8) mmol/L Anion Gap (4.00-12.00) mmol/L BUN/Creatinine Ratio (12.00-20.00) Ratio Glucose (70-110) mg/dL POC Glucose (mg/dL) 307 H 321 H (70-110) mg/dL Alkaline Phosphatase (41-126) U/L Albumin/Globulin Ratio (1.60-3.17) Ratio 11/12/23 11/12/23 11/12/23 Range/Units 05:27 05:27 05:46 WBC 11.39 H (4.50-10.00) X 10*3/uL RBC 5.76 H (4.10-5.20) X 10*6/uL Hct 46.8 H (37.2-46.3) % MCH 23.1 L (27.0-32.0) pg MCHC 28.4 L (32.0-37.0) g/dL RDW 16.3 H (11.5-14.5) % ABG pH (7.35-7.45) ABG pCO2 (35-45) mmHg ABG pO2 (83-108) mmHg ABG HCO3 (21-25) mmol/L ABG Total CO2 (19-24) mmol/L ABG O2 Saturation (94-97) % Chloride 92 L (96-109) mmol/L Carbon Dioxide 32.0 H (21.6-31.8) mmol/L Anion Gap 14.00 H (4.00-12.00) mmol/L BUN/Creatinine Ratio 22.29 H (12.00-20.00) Ratio Glucose 294 H (70-110) mg/dL POC Glucose (mg/dL) 269 H (70-110) mg/dL Alkaline Phosphatase 131 H (41-126) U/L Albumin/Globulin Ratio 1.48 L (1.60-3.17) Ratio / Range/Units 11:13 WBC (4.50-10.00) X 10*3/uL RBC (4.10-5.20) X 10*6/uL Hct (37.2-46.3) % MCH (27.0-32.0) pg MCHC (32.0-37.0) g/dL RDW (11.5-14.5) % ABG pH (7.35-7.45) ABG pCO2 (35-45) mmHg ABG pO2 (83-108) mmHg ABG HCO3 (21-25) mmol/L ABG Total CO2 (19-24) mmol/L ABG O2 Saturation (94-97) % Chloride (96-109) mmol/L Carbon Dioxide (21.6-31.8) mmol/L Anion Gap (4.00-12.00) mmol/L BUN/Creatinine Ratio (12.00-20.00) Ratio Glucose (70-110) mg/dL POC Glucose (mg/dL) 318 H (70-110) mg/dL Alkaline Phosphatase (41-126) U/L Albumin/Globulin Ratio (1.60-3.17) Ratio Microbiology - Last 24 Hours (Table) 11/09/23 05:02 Blood Culture - Preliminary Blood 11/09/23 05:15 Blood Culture - Preliminary Blood Assessment and Plan Assessment: Acute on chronic hypoxic respiratory failure, consider underlying pneumonia. CHF is felt to be less likely. Patient is currently on 6 L. Follow-up chest x- ray from today shows no acute abnormalities. Suspect that the patient's h ypoxemia is chronic and the patient may have chronic restrictive lung disease secondary to morbid obesity and chronic hypoxemic and hypercapnic respiratory failure. Limited response to antibiotics and the patient is negative for pulmonary embolism based on the CAT scan of the chest. Consider micro atelectasis contributing to her hypoxemia in addition. Suspect chronic hypoxemia possibility to morbid obesity. Chronic hypercapnic respiratory failure the patient's blood gases showing well compensated chronic hypercapnic respiratory failure. She also has chronic metabolic alkalosis. Arterial blood gases revealed a pO2 of 61, pCO2 58, pH 7.48 on 44% Fio2 Morbid obesity with obesity hypoventilation syndrome and obstructive sleep apnea, clinically suspected although this has not been officially confirmed Hypertension Hyperlipidemia Diabetes mellitus with elevated blood sugars, this could be a new diagnosis that I do not see any diabetic medication at the patient's been taken on outpatient basis Diminished level of consciousness, sleepiness, could be related to obstructive sleep apnea. Consider also other possibilities including acute neurologic events Plan: The patient was seen and evaluated Chest x-ray, labs and medications reviewed Continue to titrate the FiO2 Mostly intolerant to CPAP Increase her activity as tolerated We will continue to follow I have personally seen and examined the patient, performed the documentation and the assessment and plan as written. Number of minutes spent on the visit: 10.
[2023-11-12 16:45] LABS: Glucose,Whole Blood 282 mg/dL (70-110)
[2023-11-12 20:21] LABS: Glucose,Whole Blood 292 mg/dL (70-110)
[2023-11-12] MEDS: MONTELUKAST 10 MG TAB PO SCH (20:55)
[2023-11-12] MEDS: ATORVASTATIN 20 MG TAB PO SCH (20:55)
[2023-11-13 05:53] LABS: Glucose,Whole Blood 224 mg/dL (70-110)
[2023-11-13] MEDS: INSULIN ASPART (NovoLOG) 100 UNIT/ML VIAL SQ SCH ×7 (06:12→22:09)
[2023-11-13] MEDS: INSULIN DETEMIR (LEVEMIR) 100 UNIT/ML SYR SQ SCH ×2 (06:12→22:09)
[2023-11-13] MEDS: ACETAMINOPHEN TAB 325 MG TAB PO PRN (08:50)
[2023-11-13] MEDS: PANTOPRAZOLE 40 MG/10 ML VIAL IVP SCH (08:50)
[2023-11-13] MEDS: LOSARTAN 50 MG TAB PO SCH (08:51)
[2023-11-13] MEDS: buPROPion SR 100 MG TABLET.ER PO SCH (08:51)
[2023-11-13] MEDS: hydroCHLOROthiazide 25 MG TAB PO SCH (08:51)
[2023-11-13] MEDS: NON FORMULARY DRUG (Brexpiprazole [Rexulti] 0.5 MG Tablet) PO SCH (08:56)
[2023-11-13] MEDS: BUPROPION PO SCH ×2 (08:56→22:10)
[2023-11-13] MEDS: DEXTROMETHORPHAN HBR PO SCH ×2 (08:56→22:10)
[2023-11-13] MEDS: [UNRECOGNIZED DRUG - OTHER] PO SCH ×2 (08:56→22:10)
[2023-11-13] MEDS: IPRATROPIUM-ALBUTEROL 3 ML NEB INHALATION SCH ×4 (09:18→20:38)
[2023-11-13 11:11] LABS: Glucose,Whole Blood 216 mg/dL (70-110)
--- NOTE | 2023-11-13 13:50 | P.PN ---
Subjective Progress Note Date: 11/13/23 I saw this patient in emergency department. She is a 43-year-old morbidly obese female patient IS A BODY MASS INDEX OF 54.9. The patient was has less for shortness of breath. Unfortunately, no records are available from emergency and the physician on-call has left the hospital and the patient herself is a poor historian. She was unable to volunteer much of history. At time of arrival, the patient was sleeping and she was having active apneas and I do suspect that she has underlying obstructive sleep apnea. Upon arousal, she was not fully appropriate and she was somewhat confused and the information which provided was not reliable. She admits to have shortness of breath and she denies having any chest pain. She denied any, smoking history. Denies having any lung disease such as asthma or emphysema. Denies having any congestion heart failure. Hemodynamically she was stable. She was on 8 L of oxygen by nasal cannula. The chest x-ray showed mild patchy atelectatic changes/airspace disease in the right lung base. Echo of the heart was also done and the patient was found and left a ntegrade ejection fraction of 65-70%. She has a hyperdynamic LV and mother thinks the septal wall thickening and moderate increase in posterior wall thickness in the left ventricular cavity was normal. No significant valvular disease was noted. Meanwhile, the patient's blood work shows a WBC count of 10.3, hemoglobin at 13.1 and a platelet count is up to 50. Blood gas was done on 50% FiO2 this with the patient 7.39 with episodes of 65 and pO2 of 63. BUN is at 60 with a creatinine of 0.6 and a bicarb level is at 33. The glucose was at 339. Lactic acid level initially was at 3.6 and dropped down to 1.4 and a UA was negative for infection and she had +4 glucose. Pro-calcitonin level was at 0.13. ProBNP level was 496. 11/10/2023, the patient is less short of breath and currently is in 60s of oxygen by nasal cannula. She is being treated for pneumonia. She has obviously raises obstructive sleep apnea. She will be given a CPAP machine to be used overnight. She remains on Rocephin and Zithromax. She is also on Levemir insulin. The repeat chest x-ray from today shows no acute cardiac pulmonary process. Blood sugar management as per medicine. The patient has opted lactic acid level down to 1.4. She remains on a combination of Rocephin and Zithromax. CTA of the chest showed no evidence of any pulmonary embolism. D-dimer was low. Echocardiogram showed a preserved LV function, normal LV, dilated RV with hypokinesis of the free wall of the RV. 11/11/2023 the patient remains on 6 L O2. Still hypoxic. Unable to tolerate the CPAP well yesterday. She uses for few hours and she ended up quitting the treatment. She remains on antibiotics. She remains on bronchodilators. Using incentive spirometer. Sugar management as per medicine. The patient is on Levemir insulin 15 units along with NovoLog 18 units with meals and a sliding scale coverage. She remains on IV Rocephin. The patient is seen today 11/12/2023 in follow-up on the regular medical floor. She is currently resting in bed. Awake and alert in no acute distress. She is maintaining O2 saturations in the 90s on 6 L high flow nasal cannula. She is not been tolerating the CPAP due to anxiety. She is feeling better today compared to yesterday. Her pro-calcitonin was 0.13. She remains on ce ftriaxone. Continued on bronchodilators. Blood cultures reveal no growth. White count 11.3. Hemoglobin 13.3. Platelets 288. Sodium 138. Potassium 4.8. Bicarb 32. BUN 16. Creatinine 0.7. Glucose 294. AST 25. ALT 34. The patient is seen today November 13, 2023 in follow-up on the regular medical floor. She is sitting up in bed. Awake and alert in no acute distress. Denies any worsening shortness of breath, cough or congestion. Maintaining O2 saturations in the 90s on room air. She has completed a course of ceftriaxone. Continued on bronchodilators, Singulair. Glucose 224. Objective - Vital Signs Vital signs: Vital Signs Temp 98.0 F 11/13/23 06:57 Pulse 104 H 11/13/23 12:02 Resp 19 11/13/23 06:57 BP 128/83 11/13/23 06:57 Pulse Ox 94 L 11/13/23 06:57 FiO2 Intake & Output 11/12/23 11/13/23 11/13/23 18:59 06:59 18:59 Weight 136.078 kg Other: Voiding Method Toilet Toilet Toilet Bedside Commode Bedside Commode Bedside Commode # Voids 3 2 - Exam GENERAL EXAM: Alert, obese 43-year-old female, on room air, comfortable in no apparent distress. HEAD: Normocephalic. EYES: Normal reaction of pupils, equal size. NOSE: Clear with pink turbinates. THROAT: There is crowding of the posterior pharynx. No erythema or exudates. NECK: No masses, no JVD. CHEST: No chest wall deformity. LUNGS: Equal air entry with few scattered crackles. CVS: S1 and S2 normal with no audible murmur, regular rhythm. ABDOMEN: No hepatosplenomegaly, normal bowel sounds, no guarding or rigidity. SPINE: No scoliosis or deformity SKIN: No rashes CENTRAL NERVOUS SYSTEM: No focal deficits, tone is normal in all 4 extremities. EXTREMITIES: There is no peripheral edema. No clubbing, no cyanosis. Peripheral pulses are intact. - Labs CBC & Chem 7: 11/12/23 05:27 11/12/23 05:27 Labs: Abnormal Lab Results - Last 24 Hours (Table) 11/12/23 11/12/23 11/13/23 Range/Units 16:44 20:19 05:51 POC Glucose (mg/dL) 282 H 292 H 224 H (70-110) mg/dL 11/13/23 Range/Units 11:10 POC Glucose (mg/dL) 216 H (70-110) mg/dL Microbiology - Last 24 Hours (Table) 11/09/23 05:02 Blood Culture - Preliminary Blood 11/09/23 05:15 Blood Culture - Preliminary Blood Assessment and Plan Assessment: Acute on chronic hypoxic respiratory failure, consider underlying pneumonia. CHF is felt to be less likely. Patient is currently on 6 L. Follow-up chest x- ray from today shows no acute abnormalities. Suspect that the patient's hypoxemia is chronic and the patient may have chronic restrictive lung disease secondary to morbid obesity and chronic hypoxemic and hypercapnic respiratory failure. Limited response to antibiotics and the patient is negative for pulmonary embolism based on the CAT scan of the chest. Consider microatelectasis contributing to her hypoxemia in addition. Suspect chronic hypoxemia possibility to morbid obesity. Chronic hypercapnic respiratory failure the patient's blood gases showing well compensated chronic hypercapnic respiratory failure. She also has chronic metabolic alkalosis. Arterial blood gases revealed a pO2 of 61, pCO2 58, pH 7.4 8 on 44% Fio2 Morbid obesity with obesity hypoventilation syndrome and obstructive sleep apnea, clinically suspected although this has not been officially confirmed Hypertension Hyperlipidemia Diabetes mellitus with elevated blood sugars, this could be a new diagnosis that I do not see any diabetic medication at the patient's been taken on outpatient basis Diminished level of consciousness, sleepiness, could be related to obstructive sleep apnea. Consider also other possibilities including acute neurologic events Plan: The patient was seen and evaluated Medications reviewed Evaluate for possible home oxygen Mostly intolerant to CPAP but may benefit from outpatient sleep study Cleared for discharge from the pulmonary standpoint I have personally seen and examined the patient, performed the documentation and the assessment and plan as written. Number of minutes spent on the visit: 10.
--- NOTE | 2023-11-13 15:53 | P.PN ---
Subjective Progress Note Date: 11/13/23 This is a 43-year-old ,morbidly obese female with past medical history significant for obstructive sleep apnea, diabetes mellitus, hypertension, hyperlipidemia, bipolar, reporting "breathing issues over the last month which worsened over the last week prompting her to come into the ER. Denies any recent illness, denies anyone sick around her. Denies cough ,denies productive cough, denies O2 use at home. Denies nausea or vomiting. Denies sore throat ,denies congestion, denies stuffy nose. States " im not sick, just can't breathe". Vague historian. Denies chest pain, palpitations. Troponins neg ative 1. On admission patient was tachycardic, pulse of 120, respiratory rate of 22,afebrile ,blood pressure stable, with O2 sat of 76% on room air. ABGs on 52% FiO2 reported pH is 7.39, pCO2 65, pO2 63, bicarb 39.Chest x-ray reported mild patchy atelectasis or airspace disease in the right lung base Patient is currently maintaining O2 sats in the low 90s on 8 L of high flow nasal cannula. Normal WBC, hemoglobin 13.1, platelets 250, d-dimer 0.5, INR 0.9. Sodium 133, potassium 4.9, bicarbonate 33, BUN 16, creatinine 0.64. Glucose 480. Lactic acid 3.6 decreased to 1.4. Pro-PNP 496, Pro-calcitonin elevated 0.13. UA negative with 4+ glucose. Brain CT, Echo Doppler ordered. 11/12/23 Maintained on IV ceftriaxone, nebulized bronchodilators , requiring 6 L nasal cannula O2 to maintain O2 sats in the 90s. Mild tachycardia. Reports she attempted to use BiPAP but the mask scares her-did not use BiPAP last night denies chest pain, palpitations, shortness of breath. Denies cough, congestion, sore throat or stuffy nose. Afebrile. Blood sugars uncontrolled, running in the mid 200s to low 300s. 11/13/2023 currently wearing 6 L nasal cannula when resting in bed but states that when she is sitting up in chair she is not wearing her oxygen and maintaining her O2 saturations. Patient is unable to tolerate CPAP /mask, discussed possibly arranging 6 L nasal cannula O2 at rest-further recommendations pending from pulmonary. Denies chest pain, palpitations or shortness of breath. Objective - Vital Signs Vital signs: Vital Signs Temp 97.8 F 11/13/23 13:20 Pulse 98 11/13/23 13:20 Resp 18 11/13/23 13:20 BP 97/64 11/13/23 13:20 Pulse Ox 92 L 11/13/23 13:20 FiO2 Intake & Output 11/12/23 11/13/23 11/13/23 18:59 06:59 18:59 Weight 136.078 kg Other: Voiding Method Toilet Toilet Toilet Bedside Commode Bedside Commode Bedside Commode # Voids 3 2 - Exam PHYSICAL EXAM: VITAL SIGNS: [As above] GENERAL: Alert and oriented 3 ,Morbidly obese, lying in bed, on 6 L O2 nasal cannula HEENT: Normocephalic Conjunctivae normal. eyes normal. NECK: Supple, No JVD. CARDIOVASCULAR: S1, S2 regular. No murmur RESPIRATION: Diminished throughout with fine bibasilar crackles ABDOMEN: Soft, obese, nontender . No guarding. no masses palpable. +BS LEGS: No edema, no calf tenderness, positive DP pulses NERVOUS SYSTEM: Cranial N 2-12 grossly normal. Strength and sensation grossly intact. Skin: Warm and dry, no rash - Labs CBC & Chem 7: 11/12/23 05:27 11/12/23 05:27 Labs: Abnormal Lab Results - Last 24 Hours (Table) 11/12/23 11/12/23 11/13/23 Range/Units 16:44 20:19 05:51 POC Glucose (mg/dL) 282 H 292 H 224 H (70-110) mg/dL 11/13/23 Range/Units 11:10 POC Glucose (mg/dL) 216 H (70-110) mg/dL Microbiology - Last 24 Hours (Table) 11/09/23 05:02 Blood Culture - Preliminary Blood 11/09/23 05:15 Blood Culture - Preliminary Blood Assessment and Plan Assessment: Acute respiratory failure, reports she does not wear oxygen at home, possibly r elated to community-acquired pneumonia, doubt CHF-echo reported normal LV function, proBNP not elevated. PPE neuroE ruled out. Suspect chronic hypoxemia secondary to morbid obesity, obesity hypoventilation syndrome Morbid obesity, BMI 55 Obstructive sleep apnea secondary to the above Chronic hypercapnic respiratory failure with metabolic alkalosis Diabetes mellitus, hyperglycemic, hemoglobin A1c 12.2 Hyperlipidemia Hypertension Bipolar Plan: Continue on current medication regime ,monitoring and symptomatic treatment. Patient not able to tolerate CPAP mask .discharge planning in progress, O2 sat on room air after ambulation; possibly arrange O2 at rest-as patient requiring 6 L when lying down, resting,sleeping-further DC recommendations and clearance as per pulmonary. The impression and plan of care has been dictated as directed. : I performed a history and examination of this patient, discussed the same with the dictator. I agree with the dictator's note ,documented as a scribe. Any additional findings or plans will be noted.
[2023-11-13] MEDS ORDERED: INSULIN DETEMIR (LEVEMIR) 100 UNIT/ML SYR SQ ONE (16:00)
[2023-11-13 16:14] LABS: Glucose,Whole Blood 288 mg/dL (70-110)
--- NOTE | 2023-11-13 16:23 | P.DS ---
Providers Date of admission: 11/09/23 06:03 Expected date of discharge: 11/14/23 Attending physician: Rayo Ramirez MD Consults: 11/09/23 08:26 Consult Physician Routine Consulting Provider: Jin Natarajan Consult Reason/Comments: resp failure Do you want consulting provider notified?: Yes 11/09/23 09:37 Consult Physician Routine Consulting Provider: Patricio Pierre Consult Reason/Comments: possible CHF exacerbation Do you want consulting provider notified?: Yes Primary care physician: Deirdre Stein Hospital Course: Final Diagnosis: Acute respiratory failure, reports she does not wear oxygen at home, possibly related to underlying community-acquired pneumonia, doubt CHF-echo reported normal LV function, proBNP not elevated. Pulmonary embolism ruled out. Limited response to antibiotics. Suspect chronic hypoxemia with possible chronic restrictive lung disease secondary to morbid obesity, obesity hypoventilation syndrome as per pulmonary Morbid obesity, BMI 55 Obstructive sleep apnea secondary to the above as per clinical presentation. Patient is unable to tolerate CPAP mask. Outpatient sleep study recommended. Chronic hypercapnic respiratory failure with metabolic alkalosis Diabetes mellitus, new diagnoses, hyperglycemic, hemoglobin A1c 12.2, further adjustments in diabetic med regimen and teaching in clinic at follow-up appointment. Hyperlipidemia Hypertension Bipolar Chronic pain, follows with pain specialist, Dr. Yates. Hospital course:This is a 43-year-old ,morbidly obese female with past medical history significant for obstructive sleep apnea, diabetes mellitus, hypertension, hyperlipidemia, bipolar, reporting "breathing issues over the last month which worsened over the last week prompting her to come into the ER. Denies any recent illness, denies anyone sick around her. Denies cough ,denies productive cough, denies O2 use at home. Denies nausea or vomiting. Denies sore throat ,denies congestion, denies stuffy nose. States " im not sick, just can't breathe". Vague historian. Denies chest pain, palpitations. Troponins negative 1. On admission patient was tachycardic, pulse of 120, respiratory rate of 22,afebrile ,blood pressure stable, with O2 sat of 76% on room air. ABGs on 52% FiO2 reported pH is 7.39, pCO2 65, pO2 63, bicarb 39.Chest x-ray reported mild patchy atelectasis or airspace disease in the right lung base Patient is currently maintaining O2 sats in the low 90s on 8 L of high flow nasal cannula. Normal WBC, hemoglobin 13.1, platelets 250, d-dimer 0.5, INR 0.9. Sodium 133, potassium 4.9, bicarbonate 33, BUN 16, creatinine 0.64. Glucose 480. Lactic acid 3.6 decreased to 1.4. Pro-PNP 496, Pro-calcitonin elevated 0.13. UA negative with 4+ glucose. Brain CT, Echo Doppler ordered. 11/12/23 Maintained on IV ceftriaxone, nebulized bronchodilators , requiring 6 L nasal cannula O2 to maintain O2 sats in the 90s. Mild tachycardia. Reports she attempted to use BiPAP but the mask scares her-did not use BiPAP last night denies chest pain, palpitations, shortness of breath. Denies cough, congestion, sore throat or stuffy nose. Afebrile. Blood sugars uncontrolled, running in the mid 200s to low 300s. 11/13/2023 currently wearing 6 L nasal cannula when resting in bed but states that when she is sitting up in chair she is not wearing her oxygen and maintaining her O2 saturations. Patient is unable to tolerate CPAP /mask, discussed possibly arranging 6 L nasal cannula O2 at rest-further recommendations pending from pulmonary. Denies chest pain, palpitations or shortness of breath. Levemir insulin increased ,close monitoring of Accu-Cheks. Titration of oxygen in progress. O2 sat on room air after ambulation for discharge planning, ordered/pending. Newly diagnosed diabetes mellitus-will discharge out on metformin and Levemir , further adjustments in medication regimen in clinic plus will require further diabetic teaching at follow-up appointment with PCP. patient will need a glucometer, diabetic supplies and oxygen at discharge-case management assistance. Patient currently maintaining O2 sat of 96% on 6 L nasal cannula; clinically presenting with obstructive sleep apnea and chronic hypoxemia secondary to suspected chronic restrictive lung disease secondary to morbid obesity, obesity hypoventilation syndrome as per pulmonary. The impression and plan of care has been dictated as directed. : I performed a history and examination of this patient, discussed the same with the dictator. I agree with the dictator's note ,documented as a scribe. Any a dditional findings or plans will be noted. Patient Condition at Discharge: Stable Plan - Discharge Summary Discharge Rx Participant: No New Discharge Prescriptions: New Acetaminophen Tab [Tylenol] 650 mg PO Q6HR PRN tab PRN Reason: Fever And/ Or Pain metFORMIN HCL [Glucophage] 500 mg PO BID #60 tab Insulin Detemir (Levemir) [Levemir] 50 unit SQ HS #2 each Syringe-Needle,Insulin,0.5 ml [Insulin Syringe 30G 5/16" 1/2 ml] 1 syr SQ DIRECTED #30 each Continue Montelukast [Singulair] 10 mg PO HS Losartan [Cozaar] 50 mg PO DAILY hydroCHLOROthiazide [Hydrodiuril] 25 mg PO DAILY Pantoprazole Sodium [Protonix] 20 mg PO DAILY Albuterol Sulfate [Albuterol Sulfate Hfa] 1 - 2 puff PO RT-Q4H PRN PRN Reason: Shortness Of Breath Atorvastatin [Lipitor] 20 mg PO HS Brexpiprazole [Rexulti] 0.5 mg PO DAILY buPROPion SR [Wellbutrin SR] 100 mg PO DAILY Dextromethorphan HBr/Bupropion [Auvelity ER 45-105 mg Tablet] 1 tab PO BID Discontinued Celecoxib [Celebrex] 400 mg PO DAILY oxyCODONE HCL/ACETAMINOPHEN [Percocet 10-325 mg] 1 tab PO TID PRN PRN Reason: Pain hydrOXYzine pamoate 50 mg PO QID PRN PRN Reason: Anxiety Discharge Medication List Albuterol Sulfate [Albuterol Sulfate Hfa] 1 - 2 puff PO RT-Q4H PRN 11/09/23 [History] Atorvastatin [Lipitor] 20 mg PO HS 11/09/23 [History] Brexpiprazole [Rexulti] 0.5 mg PO DAILY 11/09/23 [History] Dextromethorphan HBr/Bupropion [Auvelity ER 45-105 mg Tablet] 1 tab PO BID 11/09/23 [History] Losartan [Cozaar] 50 mg PO DAILY 11/09/23 [History] Montelukast [Singulair] 10 mg PO HS 11/09/23 [History] Pantoprazole Sodium [Protonix] 20 mg PO DAILY 11/09/23 [History] buPROPion SR [Wellbutrin SR] 100 mg PO DAILY 11/09/23 [History] hydroCHLOROthiazide [Hydrodiuril] 25 mg PO DAILY 11/09/23 [History] Acetaminophen Tab [Tylenol] 650 mg PO Q6HR PRN tab 11/13/23 [Rx] Insulin Detemir (Levemir) [Levemir] 50 unit SQ HS #2 each 11/14/23 [Rx] Syringe-Needle,Insulin,0.5 ml [Insulin Syringe 30G /" 1/2 ml] 1 syr SQ DIRECTED #30 each 11/14/23 [Rx] metFORMIN HCL [Glucophage] 500 mg PO BID #60 tab 11/14/23 [Rx] Follow up Appointment(s)/Referral(s): Ann Marie Vásquez, PAC [REFERRING] - 1-2 days Activity/Diet/Wound Care/Special Instructions: Glucometer is at [facility]. Please have it delivered prior to discharge.
[2023-11-13 21:49] LABS: Glucose,Whole Blood 254 mg/dL (70-110)
[2023-11-13] MEDS: ATORVASTATIN 20 MG TAB PO SCH (22:10)
[2023-11-13] MEDS: MONTELUKAST 10 MG TAB PO SCH (22:10)
[2023-11-13 23:01] VITALS: RESP 20
[2023-11-14] MEDS ORDERED: ALPRAZolam 0.25 MG TAB PO STA (04:34)
[2023-11-14 06:04] LABS: Glucose,Whole Blood 297 mg/dL (70-110)
[2023-11-14] MEDS: INSULIN ASPART (NovoLOG) 100 UNIT/ML VIAL SQ SCH ×6 (06:54→16:50)
[2023-11-14] MEDS ORDERED: INSULIN DETEMIR (LEVEMIR) 100 UNIT/ML SYR SQ SCH (07:00)
[2023-11-14 07:46] VITALS: TEMP 97.4
[2023-11-14] MEDS: DEXTROMETHORPHAN HBR PO SCH (09:15)
[2023-11-14] MEDS: [UNRECOGNIZED DRUG - OTHER] PO SCH (09:15)
[2023-11-14] MEDS: NON FORMULARY DRUG (Brexpiprazole [Rexulti] 0.5 MG Tablet) PO SCH (09:15)
[2023-11-14] MEDS: BUPROPION PO SCH (09:15)
[2023-11-14] MEDS: hydroCHLOROthiazide 25 MG TAB PO SCH (09:16)
[2023-11-14] MEDS: LOSARTAN 50 MG TAB PO SCH (09:16)
[2023-11-14] MEDS: buPROPion SR 100 MG TABLET.ER PO SCH (09:16)
[2023-11-14] MEDS: IPRATROPIUM-ALBUTEROL 3 ML NEB INHALATION SCH ×3 (09:28→16:33)
[2023-11-14] MEDS: PANTOPRAZOLE 40 MG/10 ML VIAL IVP SCH (09:58)
[2023-11-14 11:00] LABS: Glucose,Whole Blood 356 mg/dL (70-110)
--- NOTE | 2023-11-14 11:23 | P.PN ---
Subjective Progress Note Date: 11/14/23 I saw this patient in emergency department. She is a 43-year-old morbidly obese female patient IS A BODY MASS INDEX OF 54.9. The patient was has less for shortness of breath. Unfortunately, no records are available from emergency and the physician on-call has left the hospital and the patient herself is a poor historian. She was unable to volunteer much of history. At time of arrival, the patient was sleeping and she was having active apneas and I do suspect that she has underlying obstructive sleep apnea. Upon arousal, she was not fully appropriate and she was somewhat confused and the information which provided was not reliable. She admits to have shortness of breath and she denies having any chest pain. She denied any, smoking history. Denies having any lung disease such as asthma or emphysema. Denies having any congestion heart failure. Hemodynamically she was stable. She was on 8 L of oxygen by nasal cannula. The chest x-ray showed mild patchy atelectatic changes/airspace disease in the right lung base. Echo of the heart was also done and the patient was found and left a ntegrade ejection fraction of 65-70%. She has a hyperdynamic LV and mother thinks the septal wall thickening and moderate increase in posterior wall thickness in the left ventricular cavity was normal. No significant valvular disease was noted. Meanwhile, the patient's blood work shows a WBC count of 10.3, hemoglobin at 13.1 and a platelet count is up to 50. Blood gas was done on 50% FiO2 this with the patient 7.39 with episodes of 65 and pO2 of 63. BUN is at 60 with a creatinine of 0.6 and a bicarb level is at 33. The glucose was at 339. Lactic acid level initially was at 3.6 and dropped down to 1.4 and a UA was negative for infection and she had +4 glucose. Pro-calcitonin level was at 0.13. ProBNP level was 496. 11/10/2023, the patient is less short of breath and currently is in 60s of oxygen by nasal cannula. She is being treated for pneumonia. She has obviously raises obstructive sleep apnea. She will be given a CPAP machine to be used overnight. She remains on Rocephin and Zithromax. She is also on Levemir insulin. The repeat chest x-ray from today shows no acute cardiac pulmonary process. Blood sugar management as per medicine. The patient has opted lactic acid level down to 1.4. She remains on a combination of Rocephin and Zithromax. CTA of the chest showed no evidence of any pulmonary embolism. D-dimer was low. Echocardiogram showed a preserved LV function, normal LV, dilated RV with hypokinesis of the free wall of the RV. 11/11/2023 the patient remains on 6 L O2. Still hypoxic. Unable to tolerate the CPAP well yesterday. She uses for few hours and she ended up quitting the treatment. She remains on antibiotics. She remains on bronchodilators. Using incentive spirometer. Sugar management as per medicine. The patient is on Levemir insulin 15 units along with NovoLog 18 units with meals and a sliding scale coverage. She remains on IV Rocephin. The patient is seen today 11/12/2023 in follow-up on the regular medical floor. She is currently resting in bed. Awake and alert in no acute distress. She is maintaining O2 saturations in the 90s on 6 L high flow nasal cannula. She is not been tolerating the CPAP due to anxiety. She is feeling better today compared to yesterday. Her pro-calcitonin was 0.13. She remains on ce ftriaxone. Continued on bronchodilators. Blood cultures reveal no growth. White count 11.3. Hemoglobin 13.3. Platelets 288. Sodium 138. Potassium 4.8. Bicarb 32. BUN 16. Creatinine 0.7. Glucose 294. AST 25. ALT 34. The patient is seen today November 13, 2023 in follow-up on the regular medical floor. She is sitting up in bed. Awake and alert in no acute distress. Denies any worsening shortness of breath, cough or congestion. Maintaining O2 saturations in the 90s on room air. She has completed a course of ceftriaxone. Continued on bronchodilators, Singulair. Glucose 224. The patient is seen today November 14, 2023 in follow-up on the regular medical floor. She is sitting up in bed. Awake and alert in no acute distress. Feeling nearly back to her baseline. She is maintaining O2 saturations in the 90s on 6 L nasal cannula. She did drop down to 84% while on room air and then 4 L was 88%. She will require home oxygen. She is a former smoker. She does have underlying COPD. Blood cultures revealed no growth. Glucose 297. She remains on DuoNeb ventilations, Singulair. Levemir being adjusted. Objective - Vital Signs Vital signs: Vital Signs Temp 97.4 F L 11/14/23 07:39 Pulse 111 H 11/14/23 10:48 Resp 20 11/14/23 07:39 BP 127/83 11/14/23 07:39 Pulse Ox 94 L 11/14/23 10:48 FiO2 Intake & Output 11/13/23 11/14/23 11/14/23 18:59 06:59 18:59 Other: Voiding Method Toilet Toilet Bedside Commode # Voids 3 1 - Exam GENERAL EXAM: Alert, morbidly obese 43-year-old female, on 6 L nasal cannula, comfortable in no apparent distress. HEAD: Normocephalic. EYES: Normal reaction of pupils, equal size. NOSE: Clear with pink turbinates. THROAT: There is crowding of the posterior pharynx. No erythema or exudates. NECK: No masses, no JVD. CHEST: No chest wall deformity. LUNGS: Equal air entry with few scattered crackles. CVS: S1 and S2 normal with no audible murmur, regular rhythm. ABDOMEN: No hepatosplenomegaly, normal bowel sounds, no guarding or rigidity. SPINE: No scoliosis or deformity SKIN: No rashes CENTRAL NERVOUS SYSTEM: No focal deficits, tone is normal in all 4 extremities. EXTREMITIES: There is no peripheral edema. No clubbing, no cyanosis. Peripheral pulses are intact. - Labs CBC & Chem 7: 11/12/23 05:27 11/12/23 05:27 Labs: Abnormal Lab Results - Last 24 Hours (Table) 11/13/23 11/13/23 11/14/23 Range/Units 16:13 21:48 06:02 POC Glucose (mg/dL) 288 H 254 H 297 H (70-110) mg/dL 11/14/23 Range/Units 10:57 POC Glucose (mg/dL) 356 H (70-110) mg/dL Assessment and Plan Assessment: Acute on chronic hypoxic respiratory failure, consider underlying pneumonia. CHF is felt to be less likely. Patient is currently on 6 L. Follow-up chest x-ray from today shows no acute abnormalities. Suspect that the patient's hypoxemia is chronic and the patient may have chronic restrictive lung disease secondary to morbid obesity, underlying chronic obstructive pulmonary disease and chronic hypoxemic and hypercapnic respiratory failure. Limited response to antibiotics and the patient is negative for pulmonary embolism based on the CAT scan of the chest. Consider microatelectasis contributing to her hypoxemia in addition Suspect chronic hypoxemia possibility to morbid obesity Chronic hypercapnic respiratory failure the patient's blood gases showing well compensated chronic hypercapnic respiratory failure. She also has chronic metabolic alkalosis. Arterial blood gases revealed a pO2 of 61, pCO2 58, pH 7.48 on 44% Fio2 Former smoker Suspect underlying chronic obstructive pulmonary disease contributing to her chronic hypoxemia Morbid obesity with obesity hypoventilation syndrome and obstructive sleep apnea, clinically suspected although this has not been officially confirmed Hypertension Hyperlipidemia Diabetes mellitus with elevated blood sugars, this could be a new diagnosis that I do not see any diabetic medication at the patient's been taken on outpatient basis Diminished level of consciousness, sleepiness, could be related to obstructive sleep apnea. Consider also other possibilities including acute neurologic e vents Plan: The patient was seen and evaluated Medications reviewed The patient does qualify for home oxygen She dropped to 84% on room air at rest Mostly intolerant to CPAP but may benefit from outpatient sleep study Educated regarding the importance of weight reduction Patient is a former smoker and suspect underlying COPD Would benefit from a follow-up in our office for full pulmonary function testing This patient was seen independently by the pulmonary nurse practitioner addressing pulmonary issues I have personally seen and examined the patient, performed the documentation and the assessment and plan as written. Number of minutes spent on the visit: 22.
[2023-11-14 14:07] VITALS: BP 113/76; PULSE 111
[2023-11-14 15:57] LABS: Glucose,Whole Blood 345 mg/dL (70-110)
== END 2023-11-14 17:53 | disposition home or self-care (01) | DRG 193 ==
LOC: EC 23:29 → 4SSUR 11-09 06:03
PROVIDERS: ADMIT Family Medicine; ATTEND Family Medicine
PROC: 5A0935A Assistance with Respiratory Ventilation, Less than 24 Consecutive Hours, High Flow/Velocity Cannula (ICD-10-PCS; principal; 2023-11-09)
DX: J15.9 Unspecified bacterial pneumonia (principal); J96.21 Acute and chronic respiratory failure with hypoxia; J96.22 Acute and chronic respiratory failure with hypercapnia; E87.3 Alkalosis; E66.2 Morbid (severe) obesity with alveolar hypoventilation; Z68.43 Body mass index [BMI] 50.0-59.9, adult; I11.9 Hypertensive heart disease without heart failure; E11.65 Type 2 diabetes mellitus with hyperglycemia; F31.9 Bipolar disorder, unspecified; J98.4 Other disorders of lung; G89.29 Other chronic pain; E78.5 Hyperlipidemia, unspecified; F41.9 Anxiety disorder, unspecified; Z87.891 Personal history of nicotine dependence; Z79.899 Other long term (current) drug therapy; Z91.013 Allergy to seafood; Z79.4 Long term (current) use of insulin; Z79.84 Long term (current) use of oral hypoglycemic drugs
CPT/HCPCS: 36415; 36600; 70450; 71046; 71275; 80053; 81003; 82805; 83036; 83605; 83880; 84145; 84484; 85025; 85027; 85379; 85610; 85730; 87040; 87449; 93005; 93306; 94640; 94660; 94760; 96365; 96375; 99291

== ENCOUNTER 2023-11-23 18:58 | Emergency (ER) | payer MEDICARE, OTHER ==
[2023-11-23 19:23] LABS: Glucose,Whole Blood 473 mg/dL (70-110)
--- NOTE | 2023-11-23 19:23 | ED ---
Weakness HPI - General Chief complaint: Weakness Stated complaint: shock Time Seen by Provider: 11/23/23 19:22 Source: patient Mode of arrival: wheelchair Limitations: no limitations - History of Present Illness Initial comments: 43-year-old female with history of type 2 diabetes, obstructive sleep apnea, morbid obesity, hypertension, hyperlipidemia, bipolar presenting with chief complaint of "I think I am going into diabetic shock". Patient was recently discharged from our facility on 11/09, throughout her course it was determined that she had hypoxia secondary to chronic restrictive lung disease which was secondary to morbid obesity obesity hypoventilation syndrome per pulmonary. Patient has brought her diabetes supplies with her today and states that she does not know how to use it. She also states that she was sent home on oxygen but states "the tank is empty". She was assigned a behavioral health case manager upon discharge. Today she admits to generalized bodyaches and weakness. She is somewhat of a poor historian. - Related Data Home Medications Medication Instructions Recorded Confirmed Albuterol Sulfate [Albuterol 1 - 2 puff PO RT-Q4H PRN 11/09/23 11/09/23 Sulfate Hfa] Atorvastatin [Lipitor] 20 mg PO HS 11/09/23 11/09/23 Brexpiprazole [Rexulti] 0.5 mg PO DAILY 11/09/23 11/09/23 Dextromethorphan HBr/Bupropion 1 tab PO BID 11/09/23 11/09/23 [Auvelity ER 45-105 mg Tablet] Losartan [Cozaar] 50 mg PO DAILY 11/09/23 11/09/23 Montelukast [Singulair] 10 mg PO HS 11/09/23 11/09/23 Pantoprazole Sodium [Protonix] 20 mg PO DAILY 11/09/23 11/09/23 buPROPion SR [Wellbutrin SR] 100 mg PO DAILY 11/09/23 11/09/23 hydroCHLOROthiazide [Hydrodiuril] 25 mg PO DAILY 11/09/23 11/09/23 Previous Rx's Medication Instructions Recorded Acetaminophen Tab [Tylenol] 650 mg PO Q6HR PRN tab 11/13/23 Insulin Detemir (Levemir) [Levemir] 50 unit SQ HS #2 each 11/14/23 Syringe-Needle,Insulin,0.5 ml 1 syr SQ DIRECTED #30 each 11/14/23 [Insulin Syringe 30G 5/16" 1/2 ml] metFORMIN HCL [Glucophage] 500 mg PO BID #60 tab 11/14/23 Allergies Allergy/AdvReac Type Severity Reaction Status Date / Time shellfish derived Allergy Rash/Hives Verified 11/09/23 10:17 tramadol Allergy Anaphylaxis Verified 11/23/23 19:21 Review of Systems ROS Statement: Those systems with pertinent positive or pertinent negative responses have been documented in the HPI. ROS Other: All systems not noted in ROS Statement are negative. Past Medical History Past Medical History: Diabetes Mellitus Additional Past Medical History / Comment(s): obesity History of Any Multi-Drug Resistant Organisms: None Reported Past Surgical History: No Surgical Hx Reported Past Anesthesia/Blood Transfusion Reactions: No Reported Reaction Past Psychological History: Bipolar Smoking Status: Never smoker Past Alcohol Use History: None Reported Past Drug Use History: None Reported General Exam - General Exam Comments Initial Comments: Visual Physical Exam Vital signs reviewed General: Well-appearing, nontoxic, no acute distress. Head: Normocephalic, atraumatic Eyes: PERRLA, EOMI ENT: Airway patent Chest: Nonlabored breathing Skin: No visual rash, normal skin tone Neuro: Alert and oriented 3 Musculoskeletal: No gross abnormalities General appearance: alert, anxious, obese Head exam: Present: atraumatic, normocephalic Eye exam: Present: normal appearance Neck exam: Present: normal inspection Respiratory exam: Present: normal lung sounds bilaterally. Absent: respiratory distress, wheezes, rales, rhonchi, stridor Cardiovascular Exam: Present: normal rhythm, tachycardia, normal heart sounds. Absent: systolic murmur, diastolic murmur, rubs, gallop, clicks Neurological exam: Present: alert, oriented X3 Psychiatric exam: Present: anxious Skin exam: Present: warm, dry Course Vital Signs 11/23/23 11/23/23 11/23/23 19:17 19:22 21:08 Temperature 98.4 F Pulse Rate 112 H 109 H Respiratory 22 20 Rate Blood Pressure 128/78 129/65 O2 Sat by Pulse 86 L 93 L 96 Oximetry 11/23/23 11/24/23 11/24/23 23:04 02:10 02:55 Temperature 98.5 F Pulse Rate 106 H 101 H 93 Respiratory 20 20 20 Rate Blood Pressure 153/99 146/94 137/77 O2 Sat by Pulse 99 96 Oximetry Medical Decision Making - Medical Decision Making Sinus tachycardia ventricular rate 105. [place] interval 180. QRS 74. QT 327. QTc 388 Was pt. sent in by a medical professional or institution (NEAL Weinstein, MANGA ARTIST, urgent care, hospital, or [facility]...) When possible be specific @ -No Did you speak to anyone other than the patient for history (EMS, parent, family, police, friend...)? What history was obtained from this source @ -No Did you review nursing and triage notes (agree or disagree)? Why? @ -I reviewed and agree with nursing and triage notes Were old charts reviewed (outside hosp., previous admission, EMS record, old EKG, old radiological studies, urgent care reports/EKG's, [facility] records)? Report findings @ -Patient's most recent admission was reviewed Differential Diagnosis (chest pain, altered mental status, abdominal pain women, abdominal pain men, vaginal bleeding, weakness, fever, dyspnea, syncope, headache, dizziness, GI bleed, back pain, seizure, CVA, palpatations, mental health, musculoskeletal)? @ -MDM Differential Weakness: Hypoglycemia, shock, sepsis, hyponatremia, anemia, infection, NC, ETOH, adverse medicine reaction, overdose, stroke. ... This is not meant to be an all-inclusive list EKG interpreted by me (3pts min.). @ -As above X-rays interpreted by me (1pt min.). @ -Chest x-ray shows limited study demonstrates no clearly acute chest abnormality. Artifact from body habitus and technical factors are present CT interpreted by me (1pt min.). @ -None done U/S interpreted by me (1pt. min.). @ -None done What testing was considered but not performed or refused? (CT, X-rays, U/S, labs)? Why? @ -None What meds were considered but not given or refused? Why? @ -None Did you discuss the management of the patient with other professionals (professionals i.e. NEAL Weinstein, MANGA ARTIST, lab, RT, psych nurse, social security assessor, food mixer assembler, teacher, veterinary medical officer, rehabilitation case coordinator)? Give summary @ -No Was smoking cessation discussed for >3mins.? @ -No Was critical care preformed (if so, how long)? @ -No Were there social determinants of health that impacted care today? How? (Homelessness, low income, unemployed, alcoholism, drug addiction, transportation, low edu. Level, literacy, decrease access to med. care, [facility], rehab)? @ -No Was there de-escalation of care discussed even if they declined (Discuss DNR or withdrawal of care, Hospice)? DNR status @ -No What co-morbidities impacted this encounter? (DM, HTN, Smoking, COPD, CAD, Cancer, CVA, ARF, Chemo, Hep., AIDS, mental health diagnosis, sleep apnea, morbid obesity)? @ -Diabetes, chronic hypoventilation induced by morbid obesity Was patient admitted / discharged? Hospital course, mention meds given and route, prescriptions, significant lab abnormalities, going to OR and other pertinent info. @ -43-year-old female presenting with chief complaint of generalized bodyaches and generalized weakness. Patient was recently discharged on November 14 with home oxygen and with new diagnosis of type 2 diabetes. History and physical exam are conducted. Patient is placed on 4 L oxygen via nasal cannula and sustains in the 90s%. no leukocytosis or anemia. Carbon dioxide 36 chloride 94 anion gap 8, this is to be expected given chronic hypercapnia. Glucose 394, patient is given 8 units of insulin and 1 L fluid bolus, glucose later improved to 252. Magnesium 1.5, patient is given 1 g magnesium sulfate. Negative troponin EKG shows no new findings. Negative acetone. Chest x-ray shows no definitive evidence of acute process. I contacted [employer] who confirms that the patient received both a continuous home oxygen device and a portable oxygen device. Patient was then provided extensive education on the use of her insulin and other diabetic supplies by the nurse, conveyed verbal understanding. Discharged home. Follow-up with PCP. Report back to ER with any new or worsening symptoms. Discussed return parameters and answered all questions. Patient conveyed verbal understanding and agreed to the plan. I discussed this case in detail with my attending Dr. Brown Undiagnosed new problem with uncertain prognosis? @ -No Drug Therapy requiring intensive monitoring for toxicity (Heparin, Nitro, Insulin, Cardizem)? @ -No Were any procedures done? @ -No Diagnosis/symptom? @ -Hyperglycemia due to diabetes mellitus Acute, or Chronic, or Acute on Chronic? @ -Acute Uncomplicated (without systemic symptoms) or Complicated (systemic symptoms)? @ -Complicated Side effects of treatment? @ -No Exacerbation, Progression, or Severe Exacerbation? @ -No Poses a threat to life or bodily function? How? (Chest pain, USA, NC, pneumonia, PE, COPD, DKA, ARF, appy, cholecystitis, CVA, Diverticulitis, Homicidal, Suicidal, threat to staff... and all critical care pts) @ -Unlikely Diagnosis/symptom? @Hypoventilation associated with obesity Acute, or Chronic, or Acute on Chronic? @Chronic Uncomplicated (without systemic symptoms) or Complicated (systemic symptoms)? @Complicated Side effects of treatment? @None Exacerbation, Progression, or Severe Exacerbation] @No Poses a threat to life or bodily function? @If patient follows her previous established treatment plan low likelihood - Lab Data Result diagrams: 11/23/23 20:37 11/23/23 20:37 Lab Results 11/23/23 11/23/23 11/23/23 Range/Units 19:20 20:37 20:37 WBC 8.4 (3.8-10.6) k/uL RBC 5.45 H (3.80-5.40) m/uL Hgb 13.3 (11.4-16.0) gm/dL Hct 44.9 (34.0-46.0) % MCV 82.4 (80.0-100.0) fL MCH 24.3 L (25.0-35.0) pg MCHC 29.5 L (31.0-37.0) g/dL RDW 16.3 H (11.5-15.5) % Plt Count 292 (150-450) k/uL MPV 8.1 Neutrophils % 64 % Lymphocytes % 26 % Monocytes % 4 % Eosinophils % 4 % Basophils % 1 % Neutrophils # 5.4 (1.3-7.7) k/uL Lymphocytes # 2.1 (1.0-4.8) k/uL Monocytes # 0.4 (0-1.0) k/uL Eosinophils # 0.3 (0-0.7) k/uL Basophils # 0.1 (0-0.2) k/uL Hypochromasia Marked Anisocytosis Slight PT 9.9 L (10.0-12.5) sec INR 0.9 (<1.2) APTT 21.6 L (22.0-30.0) sec VBG pH (7.31-7.41) VBG pCO2 (37-51) mmHg VBG HCO3 (24-28) mmol/L Sodium (137-145) mmol/L Potassium (3.5-5.1) mmol/L Chloride (98-107) mmol/L Carbon Dioxide (22-30) mmol/L Anion Gap mmol/L BUN (7-17) mg/dL Creatinine (0.52-1.04) mg/dL Est GFR (CKD-EPI)AfAm (>60 ml/min/1.73 sqM) Est GFR (CKD-EPI)NonAf (>60 ml/min/1.73 sqM) Glucose (74-99) mg/dL POC Glucose (mg/dL) 473 H (70-110) mg/dL POC Glu Control Systems Designer ID Nan Camacho Lactic Ac Sepsis Rflx Plasma Lactic Acid Mac (0.7-2.0) mmol/L Calcium (8.4-10.2) mg/dL Phosphorus (2.5-4.5) mg/dL Magnesium (1.6-2.3) mg/dL Total Bilirubin (0.2-1.3) mg/dL AST (14-36) U/L ALT (4-34) U/L Alkaline Phosphatase (38-126) U/L Troponin I (0.000-0.034) ng/mL Total Protein (6.3-8.2) g/dL Albumin (3.5-5.0) g/dL Acetone, Qual (Negative) 11/23/23 11/23/23 11/23/23 Range/Units 20:37 20:37 20:37 WBC (3.8-10.6) k/uL RBC (3.80-5.40) m/uL Hgb (11.4-16.0) gm/dL Hct (34.0-46.0) % MCV (80.0-100.0) fL MCH (25.0-35.0) pg MCHC (31.0-37.0) g/dL RDW (11.5-15.5) % Plt Count (150-450) k/uL MPV Neutrophils % % Lymphocytes % % Monocytes % % Eosinophils % % Basophils % % Neutrophils # (1.3-7.7) k/uL Lymphocytes # (1.0-4.8) k/uL Monocytes # (0-1.0) k/uL Eosinophils # (0-0.7) k/uL Basophils # (0-0.2) k/uL Hypochromasia Anisocytosis PT (10.0-12.5) sec INR (<1.2) APTT (22.0-30.0) sec VBG pH (7.31-7.41) VBG pCO2 (37-51) mmHg VBG HCO3 (24-28) mmol/L Sodium 138 (137-145) mmol/L Potassium 4.5 (3.5-5.1) mmol/L Chloride 94 L (98-107) mmol/L Carbon Dioxide 36 H (22-30) mmol/L Anion Gap 8 mmol/L BUN 18 H (7-17) mg/dL Creatinine 0.54 (0.52-1.04) mg/dL Est GFR (CKD-EPI)AfAm >90 (>60 ml/min/1.73 sqM) Est GFR (CKD-EPI)NonAf >90 (>60 ml/min/1.73 sqM) Glucose 394 H (74-99) mg/dL POC Glucose (mg/dL) (70-110) mg/dL POC Glu Control Systems Designer ID Lactic Ac Sepsis Rflx Plasma Lactic Acid Mac 3.2 H* (0.7-2.0) mmol/L Calcium 10.0 (8.4-10.2) mg/dL Phosphorus 4.2 (2.5-4.5) mg/dL Magnesium 1.5 L (1.6-2.3) mg/dL Total Bilirubin 0.4 (0.2-1.3) mg/dL AST 26 (14-36) U/L ALT 34 (4-34) U/L Alkaline Phosphatase 111 (38-126) U/L Troponin I <0.012 (0.000-0.034) ng/mL Total Protein 6.6 (6.3-8.2) g/dL Albumin 4.0 (3.5-5.0) g/dL Acetone, Qual Negative (Negative) 11/23/23 11/23/23 11/24/23 Range/Units 21:26 23:03 00:18 WBC (3.8-10.6) k/uL RBC (3.80-5.40) m/uL Hgb (11.4-16.0) gm/dL Hct (34.0-46.0) % MCV (80.0-100.0) fL MCH (25.0-35.0) pg MCHC (31.0-37.0) g/dL RDW (11.5-15.5) % Plt Count (150-450) k/uL MPV Neutrophils % % Lymphocytes % % Monocytes % % Eosinophils % % Basophils % % Neutrophils # (1.3-7.7) k/uL Lymphocytes # (1.0-4.8) k/uL Monocytes # (0-1.0) k/uL Eosinophils # (0-0.7) k/uL Basophils # (0-0.2) k/uL Hypochromasia Anisocytosis PT (10.0-12.5) sec INR (<1.2) APTT (22.0-30.0) sec VBG pH 7.39 (7.31-7.41) VBG pCO2 66 H (37-51) mmHg VBG HCO3 39 H (24-28) mmol/L Sodium (137-145) mmol/L Potassium (3.5-5.1) mmol/L Chloride (98-107) mmol/L Carbon Dioxide (22-30) mmol/L Anion Gap mmol/L BUN (7-17) mg/dL Creatinine (0.52-1.04) mg/dL Est GFR (CKD-EPI)AfAm (>60 ml/min/1.73 sqM) Est GFR (CKD-EPI)NonAf (>60 ml/min/1.73 sqM) Glucose (74-99) mg/dL POC Glucose (mg/dL) 252 H (70-110) mg/dL POC Glu Control Systems Designer ID Keara Herrera Lactic Ac Sepsis Rflx Y Plasma Lactic Acid Mac (0.7-2.0) mmol/L Calcium (8.4-10.2) mg/dL Phosphorus (2.5-4.5) mg/dL Magnesium (1.6-2.3) mg/dL Total Bilirubin (0.2-1.3) mg/dL AST (14-36) U/L ALT (4-34) U/L Alkaline Phosphatase (38-126) U/L Troponin I (0.000-0.034) ng/mL Total Protein (6.3-8.2) g/dL Albumin (3.5-5.0) g/dL Acetone, Qual (Negative) 11/24/23 11/24/23 Range/Units 00:18 01:58 WBC (3.8-10.6) k/uL RBC (3.80-5.40) m/uL Hgb (11.4-16.0) gm/dL Hct (34.0-46.0) % MCV (80.0-100.0) fL MCH (25.0-35.0) pg MCHC (31.0-37.0) g/dL RDW (11.5-15.5) % Plt Count (150-450) k/uL MPV Neutrophils % % Lymphocytes % % Monocytes % % Eosinophils % % Basophils % % Neutrophils # (1.3-7.7) k/uL Lymphocytes # (1.0-4.8) k/uL Monocytes # (0-1.0) k/uL Eosinophils # (0-0.7) k/uL Basophils # (0-0.2) k/uL Hypochromasia Anisocytosis PT (10.0-12.5) sec INR (<1.2) APTT (22.0-30.0) sec VBG pH (7.31-7.41) VBG pCO2 (37-51) mmHg VBG HCO3 (24-28) mmol/L Sodium (137-145) mmol/L Potassium (3.5-5.1) mmol/L Chloride (98-107) mmol/L Carbon Dioxide (22-30) mmol/L Anion Gap mmol/L BUN (7-17) mg/dL Creatinine (0.52-1.04) mg/dL Est GFR (CKD-EPI)AfAm (>60 ml/min/1.73 sqM) Est GFR (CKD-EPI)NonAf (>60 ml/min/1.73 sqM) Glucose (74-99) mg/dL POC Glucose (mg/dL) (70-110) mg/dL POC Glu Control Systems Designer ID Lactic Ac Sepsis Rflx Y Plasma Lactic Acid Mac 3.4 H* (0.7-2.0) mmol/L Calcium (8.4-10.2) mg/dL Phosphorus (2.5-4.5) mg/dL Magnesium (1.6-2.3) mg/dL Total Bilirubin (0.2-1.3) mg/dL AST (14-36) U/L ALT (4-34) U/L Alkaline Phosphatase (38-126) U/L Troponin I (0.000-0.034) ng/mL Total Protein (6.3-8.2) g/dL Albumin (3.5-5.0) g/dL Acetone, Qual (Negative) Disposition Clinical Impression: Hyperglycemia due to diabetes mellitus, Hypoventilation associated with obesity Disposition: HOME SELF-CARE Condition: Fair Instructions (If sedation given, give patient instructions): Type 2 Diabetes in Adults: New Diagnosis (DC), Using Oxygen at Home (ED) Additional Instructions: Follow-up with your primary care doctor. Report back to ER with any new or worsening symptoms. Is patient prescribed a controlled substance at d/c from ED?: No Referrals: Ann Marie Vásquez PAC [REFERRING] - 1-2 days Tip Campbell MD [STAFF PHYSICIAN] - 1-2 days Time of Disposition: 02:16
[2023-11-23 21:02] LABS: Anisocytosis Slight; Basophils # (A) 0.1 k/uL (0-0.2); Basophils % (A) 1 %; Eosinophils # (A) 0.3 k/uL (0-0.7); Eosinophils % (A) 4 %; HCT 44.9 % (34.0-46.0); HGB 13.3 gm/dL (11.4-16.0); Hypochromasia Marked; Lymphocytes # (A) 2.1 k/uL (1.0-4.8); Lymphocytes % (A) 26 %; MCH 24.3 pg (25.0-35.0); MCHC 29.5 g/dL (31.0-37.0); MCV 82.4 fL (80.0-100.0); Mean Platelet Volume 8.1; Monocytes # (A) 0.4 k/uL (0-1.0); Monocytes % (A) 4 %; Neutrophils # (A) 5.4 k/uL (1.3-7.7); Neutrophils % (A) 64 %; Platelet Count 292 k/uL (150-450); RBC 5.45 m/uL (3.80-5.40); RDW 16.3 % (11.5-15.5); WBC 8.4 k/uL (3.8-10.6)
[2023-11-23] MEDS: SODIUM CHLORIDE 0.9% 1,000 ML IV ONE (21:11)
[2023-11-23] MEDS: INSULIN REGULAR 100 UNIT/ML VIAL (IM/SQ) SQ ONE (21:11)
[2023-11-23 21:18] LABS: INR 0.9 (<1.2); Prothrombin Time 9.9 sec (10.0-12.5)
[2023-11-23 21:23] LABS: ALT 34 U/L (4-34); AST 26 U/L (14-36); African American GFR (CKD) >90 (>60 ml/min/1.73 sqM); Alkaline Phosphatase 111 U/L (38-126); Anion Gap 8 mmol/L; Blood Urea Nitrogen 18 mg/dL (7-17); Carbon Dioxide 36 mmol/L (22-30); Chloride 94 mmol/L (98-107); Glucose 394 mg/dL (74-99); Magnesium 1.5 mg/dL (1.6-2.3); Non-African American GFR(CKD) >90 (>60 ml/min/1.73 sqM); Phosphorus 4.2 mg/dL (2.5-4.5); Potassium 4.5 mmol/L (3.5-5.1); Sodium 138 mmol/L (137-145); Total Bilirubin 0.4 mg/dL (0.2-1.3); Total Protein 6.6 g/dL (6.3-8.2)
[2023-11-23] MEDS: MAGNESIUM SULFATE-D5W PMX 1 GM in DEXTROSE/WATER 1 100ML.BAG IVPB ONE (21:35)
[2023-11-23 21:40] LABS: Partial Thromboplastin Time 21.6 sec (22.0-30.0)
--- NOTE | 2023-11-23 21:41 | XR ---
EXAMINATION TYPE: XR chest 2V DATE OF EXAM: 11/23/2023 8:54 PM CLINICAL INDICATION:Female, 43 years old with history of Weakness; [facility] COMPARISON: 11/10/2023 chest x-ray, 11/09/2023 CT chest angiogram for PE TECHNIQUE: XR chest 2V. Frontal and lateral views of the chest.. FINDINGS: Exam is limited by patient body habitus and technical factors. Lines/Tubes/Devices: EKG leads overlie the chest. No indwelling lines are seen. Heart/mediastinum: Heart appears mildly enlarged. Abnormally hyperdense appearance of the mediastinu m on the frontal view including the aortic arch, favored to be artifactual related to body habitus an d technical factors. Pulmonary vascularity: Not increased, Lungs/Pleura: Hazy increased attenuation throughout the left chest and mid right lung zones on the fr ontal view, favored to be artifactual from body habitus and technical factors rather than edema or in filtrate. Otherwise, no focal lung consolidation, sizable effusion, or pneumothorax is seen. Musculoskeletal: No acute osseous abnormality demonstrated in the limits of the exam. Mild degenerat edith changes of the spine and shoulders. Other findings: None. IMPRESSION: Limited study demonstrates no clearly acute chest abnormality. Recommend follow-up as clinically warranted.
[2023-11-23 21:53] VITALS: RESP 20
[2023-11-23 23:05] LABS: Glucose,Whole Blood 252 mg/dL (70-110)
[2023-11-24 00:57] LABS: VBG PH 7.39 (7.31-7.41)
[2023-11-24 03:20] VITALS: BP 137/77; PULSE 93; TEMP 98.5
== END 2023-11-24 03:05 | disposition home or self-care (01) ==
LOC: EC 18:58
DX: E11.65 Type 2 diabetes mellitus with hyperglycemia (principal); E66.2 Morbid (severe) obesity with alveolar hypoventilation; I25.2 Old myocardial infarction; R00.0 Tachycardia, unspecified; E78.5 Hyperlipidemia, unspecified; I10 Essential (primary) hypertension; F31.9 Bipolar disorder, unspecified; Z68.43 Body mass index [BMI] 50.0-59.9, adult; Z79.84 Long term (current) use of oral hypoglycemic drugs; Z79.899 Other long term (current) drug therapy
CPT/HCPCS: 36415; 93005; 80053; 82803; 82009; 83605 ×2; 83735; 84100; 84484; 85025; 85610; 85730; 71046; 99285; 96365; J3475

== ENCOUNTER 2023-12-07 02:47 | Emergency (ER) | payer MEDICARE, OTHER ==
--- NOTE | 2023-12-07 03:24 | ED ---
General Adult HPI - General Source: patient Mode of arrival: wheelchair Limitations: no limitations <Catherine Fair - Last Filed: 12/07/23 03:24> - General Source: RN notes reviewed, old records reviewed <Alex Stein - Last Filed: 12/07/23 07:16> - General Stated complaint: Syncope, lower abdominal pain Time Seen by Provider: 12/07/23 03:24 - History of Present Illness Initial comments: 43-year-old female presenting with chief complaint of syncopal episode. (Catherine Fair) Patient is a 43-year-old female who presents emergency department for possible syncopal episode as well as abdominal pain. Patient has a history of chronic pain, fibromyalgia. Is on Percocets at home. States she had a syncopal episode after she stood up to turn off the light. States she was out for maybe a second or 2. Also has been dealing with abdominal pain for an undisclosed period of time. Presents for further evaluation at this time. Still complaining of some right what seems to be more hip pain. No other acute complaints. No urinary complaints. I evaluated the patient after workup was completed and she was placed in a room. (Alex Stein) - Related Data Home Medications Medication Instructions Recorded Confirmed Albuterol Sulfate [Albuterol 1 - 2 puff PO RT-Q4H PRN 11/09/23 11/09/23 Sulfate Hfa] Atorvastatin [Lipitor] 20 mg PO HS 11/09/23 11/09/23 Brexpiprazole [Rexulti] 0.5 mg PO DAILY 11/09/23 11/09/23 Dextromethorphan HBr/Bupropion 1 tab PO BID 11/09/23 11/09/23 [Auvelity ER 45-105 mg Tablet] Losartan [Cozaar] 50 mg PO DAILY 11/09/23 11/09/23 Montelukast [Singulair] 10 mg PO HS 11/09/23 11/09/23 Pantoprazole Sodium [Protonix] 20 mg PO DAILY 11/09/23 11/09/23 buPROPion SR [Wellbutrin SR] 100 mg PO DAILY 11/09/23 11/09/23 hydroCHLOROthiazide [Hydrodiuril] 25 mg PO DAILY 11/09/23 11/09/23 Previous Rx's Medication Instructions Recorded Acetaminophen Tab [Tylenol] 650 mg PO Q6HR PRN tab 11/13/23 Insulin Detemir (Levemir) [Levemir] 50 unit SQ HS #2 each 11/14/23 Syringe-Needle,Insulin,0.5 ml 1 syr SQ DIRECTED #30 each 11/14/23 [Insulin Syringe 30G 5/16" 1/2 ml] metFORMIN HCL [Glucophage] 500 mg PO BID #60 tab 11/14/23 Allergies Allergy/AdvReac Type Severity Reaction Status Date / Time shellfish derived Allergy Rash/Hives Verified 12/07/23 04:28 tramadol Allergy Anaphylaxis Verified 12/07/23 04:28 Review of Systems ROS Other: All systems not noted in ROS Statement are negative. <Catherine Fair - Last Filed: 12/07/23 03:24> ROS Other: All systems not noted in ROS Statement are negative. <Alex Stein - Last Filed: 12/07/23 07:16> ROS Statement: Those systems with pertinent positive or pertinent negative responses have been documented in the HPI. Review of Systems: CONST: Denies fever EYES: Denies blurry vision ENT: Denies nasal congestion C/V: Denies Chest pain RESP: Denies shortness of breath GI: Denies abdominal pain : Denies dysuria SKIN: Denies rash. MSK: Denies joint pain. NEURO: Denies headache (Alex Stein) Past Medical History Past Medical History: Diabetes Mellitus Additional Past Medical History / Comment(s): obesity History of Any Multi-Drug Resistant Organisms: None Reported Past Surgical History: No Surgical Hx Reported Past Anesthesia/Blood Transfusion Reactions: No Reported Reaction Past Psychological History: Bipolar Smoking Status: Never smoker Past Alcohol Use History: None Reported Past Drug Use History: None Reported <Catherine Fair - Last Filed: 12/07/23 03:24> General Exam <Catherine Fair - Last Filed: 12/07/23 03:24> <Alex Stein - Last Filed: 12/07/23 07:16> - General Exam Comments Initial Comments: Visual Physical Exam Vital signs reviewed General: Well-appearing, nontoxic, no acute distress. Head: Normocephalic, atraumatic Eyes: PERRLA, EOMI ENT: Airway patent Chest: Nonlabored breathing Skin: No visual rash, normal skin tone Neuro: Alert and oriented 3 Musculoskeletal: No gross abnormalities (Catherine Fair) General: Appears in no acute distress. HEAD: Normal with no signs of head trauma. EYES: PERRLA, EOMI, conjunctiva normal, no discharge. ENT: Hearing grossly intact, normal oropharynx. RESPIRATORY: Clear breath sounds bilaterally. No wheezes, rales, or rhonchi. C/V: Regular rate and rhythm. S1 and S2 auscultated, no edema, peripheral pulses 2+ and intact throughout ABD: Abd is soft, nondistended, with no obvious focal tenderness. EXT: Normal range of motion, no obvious deformity SKIN: No rashes or lesions observed on exposed skin. NEURO: Alert and oriented x 4. Cranial nerves II-XII intact. No focal sensory or strength deficits. (Alex Stein) Course Vital Signs 12/07/23 04:26 Temperature 98.8 F Pulse Rate 97 Respiratory 18 Rate Blood Pressure 126/88 O2 Sat by Pulse 96 Oximetry Medical Decision Making <Catherine Fair - Last Filed: 12/07/23 03:24> - Lab Data Result diagrams: 12/07/23 03:35 12/07/23 03:35 - EKG Data -: EKG Interpreted by Me <Alex Stein - Last Filed: 12/07/23 07:16> - Medical Decision Making I performed the quick note portion of this visit, electronically signed Catherine Fair PA-C (Catherine Fair) Was pt. sent in by a medical professional or institution ([facility], [employer], urgent care, hospital, or correction...) When possible be specific @ -No Did you speak to anyone other than the patient for history (EMS, parent, family, police, friend...)? What history was obtained from this source @ -No Did you review nursing and triage notes (agree or disagree)? Why? @ -I reviewed and agree with nursing and triage notes Were old charts reviewed (outside hosp., previous admission, EMS record, old EK G, old radiological studies, urgent care reports/EKG's, correction records)? Report findings @ -Old charts reviewed Differential Diagnosis (chest pain, altered mental status, abdominal pain women, abdominal pain men, vaginal bleeding, weakness, fever, dyspnea, syncope, headache, dizziness, GI bleed, back pain, seizure, CVA, palpatations, mental health, musculoskeletal)? @ -Differential Syncope: Valvular disease, hypertrophic cardiomyopathy, pulmonary embolism, tamponade, tachycardia, bradycardia, DE, hypovolemia, hemorrhage, dissection, anemia, intracranial hemorrhage, seizure, hypoglycemia, carbon monoxide poisoning, this is not meant to be an all-inclusive list. EKG interpreted by me (3pts min.). @ -As above X-rays interpreted by me (1pt min.). @ -Chest x-ray reveals no obvious acute cardiopulmonary process. CT interpreted by me (1pt min.). @ -None done U/S interpreted by me (1pt. min.). @ -None done What testing was considered but not performed or refused? (CT, X-rays, U/S, labs)? Why? @ -None What meds were considered but not given or refused? Why? @ -None Did you discuss the management of the patient with other professionals (professionals i.e. , PA, EXHIBIT CARPENTER, lab, RT, psych nurse, socially responsible investment adviser, extrusion die template maker, teacher, admissions officer, casework supervisor)? Give summary @ -No Was smoking cessation discussed for >3mins.? @ -No Was critical care preformed (if so, how long)? @ -No Were there social determinants of health that impacted care today? How? (Homelessness, low income, unemployed, alcoholism, drug addiction, transportation, low edu. Level, literacy, decrease access to med. care, senior care, rehab)? @ -No Was there de-escalation of care discussed even if they declined (Discuss DNR or withdrawal of care, Hospice)? DNR status @ -No What co-morbidities impacted this encounter? (DM, HTN, Smoking, COPD, CAD, Cancer, CVA, ARF, Chemo, Hep., AIDS, mental health diagnosis, sleep apnea, morbid obesity)? @ -None Was patient admitted / discharged? Hospital course, mention meds given and route, prescriptions, significant lab abnormalities, going to OR and other pertinent info. @ -Patient presents for syncopal episode versus near syncopal episode as well as chronic abdominal pain. Vital signs within acceptable limits. Patient originally presented as a quick note. Workup is unremarkable except for hyperglycemia in the setting of poorly controlled diabetes. Remainder the labs within acceptable limits. Troponin undetectable. EKG shows no signs of acute ischemia. Chest x-ray unremarkable.I do not believe that any further imaging is required at this time. Patient's labs are within acceptable limits. On reevaluation, I updated the patient on the results of her workup. I believe it is safer to be discharged home at this time. She was in agreement this plan. She will be discharged home. Recommended follow-up with her PCP as she states the Percocet start working for her chronic abdominal pain and she needs to follow-up with him for any additional pain meds. She was in agreement this plan. Vital signs remained within acceptable limits. I instructed the patient to follow up with their PCP in the next 1-3 days. I explained that the patient should return to the emergency department if they experience any worsening symptoms. Strict return precautions were discussed with the patient. The patient expressed understanding of these instructions. I answered all questions that the patient had. The patient was discharged home in good condition with their prescriptions and follow up information. Undiagnosed new problem with uncertain prognosis? @ -No Drug Therapy requiring intensive monitoring for toxicity (Heparin, Nitro, Insulin, Cardizem)? @ -No Were any procedures done? @ -No Diagnosis/symptom? @ -Chronic pain, syncope Acute, or Chronic, or Acute on Chronic? @ -Acute Uncomplicated (without systemic symptoms) or Complicated (systemic symptoms)? @ -Uncomplicated Side effects of treatment? @ -No Exacerbation, Progression, or Severe Exacerbation? @ -No Poses a threat to life or bodily function? How? (Chest pain, USA, DE, pneumonia, PE, COPD, DKA, ARF, appy, cholecystitis, CVA, Diverticulitis, Homicidal, Suicidal, threat to staff... and all critical care pts) @ -No (Alex Stein) - Lab Data Lab Results 12/07/23 12/07/23 12/07/23 Range/Units 03:35 03:35 03:35 WBC 10.4 (3.8-10.6) k/uL RBC 5.19 (3.80-5.40) m/uL Hgb 13.0 (11.4-16.0) gm/dL Hct 42.4 (34.0-46.0) % MCV 81.5 (80.0-100.0) fL MCH 25.0 (25.0-35.0) pg MCHC 30.7 L (31.0-37.0) g/dL RDW 16.8 H (11.5-15.5) % Plt Count 250 (150-450) k/uL MPV 8.1 Neutrophils % 63 % Lymphocytes % 28 % Monocytes % 3 % Eosinophils % 3 % Basophils % 1 % Neutrophils # 6.6 (1.3-7.7) k/uL Lymphocytes # 2.9 (1.0-4.8) k/uL Monocytes # 0.3 (0-1.0) k/uL Eosinophils # 0.3 (0-0.7) k/uL Basophils # 0.1 (0-0.2) k/uL Hypochromasia Moderate Anisocytosis Slight PT 10.1 (10.0-12.5) sec INR 0.9 (<1.2) APTT 22.1 (22.0-30.0) sec Sodium 133 L (137-145) mmol/L Potassium 3.5 (3.5-5.1) mmol/L Chloride 90 L (98-107) mmol/L Carbon Dioxide 36 H (22-30) mmol/L Anion Gap 7 mmol/L BUN 16 (7-17) mg/dL Creatinine 0.55 (0.52-1.04) mg/dL Est GFR (CKD-EPI)AfAm >90 (>60 ml/min/1.73 sqM) Est GFR (CKD-EPI)NonAf >90 (>60 ml/min/1.73 sqM) Glucose 276 H (74-99) mg/dL POC Glucose (mg/dL) (70-110) mg/dL POC Glu Toll Transmission Worker ID Calcium 9.0 (8.4-10.2) mg/dL Magnesium 1.5 L (1.6-2.3) mg/dL Total Bilirubin 0.6 (0.2-1.3) mg/dL AST 33 (14-36) U/L ALT 28 (4-34) U/L Alkaline Phosphatase 98 (38-126) U/L Troponin I (0.000-0.034) ng/mL Total Protein 6.3 (6.3-8.2) g/dL Albumin 3.8 (3.5-5.0) g/dL Influenza Type A (PCR) (Not Detectd) Influenza Type B (PCR) (Not Detectd) RSV (PCR) (Not Detectd) SARS-CoV-2 (PCR) (Not Detectd) 12/07/23 12/07/23 12/07/23 Range/Units 03:35 03:59 04:04 WBC (3.8-10.6) k/uL RBC (3.80-5.40) m/uL Hgb (11.4-16.0) gm/dL Hct (34.0-46.0) % MCV (80.0-100.0) fL MCH (25.0-35.0) pg MCHC (31.0-37.0) g/dL RDW (11.5-15.5) % Plt Count (150-450) k/uL MPV Neutrophils % % Lymphocytes % % Monocytes % % Eosinophils % % Basophils % % Neutrophils # (1.3-7.7) k/uL Lymphocytes # (1.0-4.8) k/uL Monocytes # (0-1.0) k/uL Eosinophils # (0-0.7) k/uL Basophils # (0-0.2) k/uL Hypochromasia Anisocytosis PT (10.0-12.5) sec INR (<1.2) APTT (22.0-30.0) sec Sodium (137-145) mmol/L Potassium (3.5-5.1) mmol/L Chloride (98-107) mmol/L Carbon Dioxide (22-30) mmol/L Anion Gap mmol/L BUN (7-17) mg/dL Creatinine (0.52-1.04) mg/dL Est GFR (CKD-EPI)AfAm (>60 ml/min/1.73 sqM) Est GFR (CKD-EPI)NonAf (>60 ml/min/1.73 sqM) Glucose (74-99) mg/dL POC Glucose (mg/dL) 240 H (70-110) mg/dL POC Glu Toll Transmission Worker ID Chava Silva Calcium (8.4-10.2) mg/dL Magnesium (1.6-2.3) mg/dL Total Bilirubin (0.2-1.3) mg/dL AST (14-36) U/L ALT (4-34) U/L Alkaline Phosphatase (38-126) U/L Troponin I <0.012 (0.000-0.034) ng/mL Total Protein (6.3-8.2) g/dL Albumin (3.5-5.0) g/dL Influenza Type A (PCR) Not Detected (Not Detectd) Influenza Type B (PCR) Not Detected (Not Detectd) RSV (PCR) Not Detected (Not Detectd) SARS-CoV-2 (PCR) Not Detected (Not Detectd) - EKG Data EKG Comments: 12-lead Electrocardiogram Interpretation Note EKG was reviewed and interpreted by myself. 12-lead ECG performed at 0341 is interpreted by me as revealing normal sinus rhythm at a rate of 95 beats per minute. [place] is normal. IA interval is 178 ms, QRS duration 72 ms, QTc is 447 ms.. There were no ST or T wave abnormalities to suggest myocardial ischemia or injury. R wave progression across the precordium was satisfactory. By my interpretation this EKG is non-diagnostic for acute ischemia. (Alex Stein) Disposition <Catherine Fair - Last Filed: 12/07/23 03:24> Is patient prescribed a controlled substance at d/c from ED?: No Time of Disposition: 06:32 <Alex Stein - Last Filed: 12/07/23 07:16> Clinical Impression: Syncope, Chronic pain Disposition: HOME SELF-CARE Condition: Good Instructions (If sedation given, give patient instructions): Syncope (ED), Abdominal Pain (ED) Referrals: None,Stated [REFERRING] - 1-2 days
[2023-12-07 04:06] LABS: Glucose,Whole Blood 240 mg/dL (70-110)
[2023-12-07 04:07] LABS: Anisocytosis Slight; Basophils # (A) 0.1 k/uL (0-0.2); Basophils % (A) 1 %; Eosinophils # (A) 0.3 k/uL (0-0.7); Eosinophils % (A) 3 %; HCT 42.4 % (34.0-46.0); Hypochromasia Moderate; Lymphocytes # (A) 2.9 k/uL (1.0-4.8); Lymphocytes % (A) 28 %; MCHC 30.7 g/dL (31.0-37.0); MCV 81.5 fL (80.0-100.0); Mean Platelet Volume 8.1; Monocytes # (A) 0.3 k/uL (0-1.0); Monocytes % (A) 3 %; Neutrophils # (A) 6.6 k/uL (1.3-7.7); Neutrophils % (A) 63 %; Platelet Count 250 k/uL (150-450); RBC 5.19 m/uL (3.80-5.40); RDW 16.8 % (11.5-15.5); WBC 10.4 k/uL (3.8-10.6)
[2023-12-07 04:22] LABS: ALT 28 U/L (4-34); AST 33 U/L (14-36); African American GFR (CKD) >90 (>60 ml/min/1.73 sqM); Albumin 3.8 g/dL (3.5-5.0); Alkaline Phosphatase 98 U/L (38-126); Anion Gap 7 mmol/L; Blood Urea Nitrogen 16 mg/dL (7-17); Carbon Dioxide 36 mmol/L (22-30); Chloride 90 mmol/L (98-107); Glucose 276 mg/dL (74-99); Magnesium 1.5 mg/dL (1.6-2.3); Non-African American GFR(CKD) >90 (>60 ml/min/1.73 sqM); Potassium 3.5 mmol/L (3.5-5.1); Sodium 133 mmol/L (137-145); Total Bilirubin 0.6 mg/dL (0.2-1.3); Total Protein 6.3 g/dL (6.3-8.2)
[2023-12-07 04:42] VITALS: BP 126/88; PULSE 97; RESP 18; TEMP 98.8
[2023-12-07 05:05] LABS: INR 0.9 (<1.2); Partial Thromboplastin Time 22.1 sec (22.0-30.0); Prothrombin Time 10.1 sec (10.0-12.5)
--- NOTE | 2023-12-07 07:16 | XR ---
EXAM: XR Chest, 2 Views CLINICAL HISTORY: ITS.REASON XR Reason: syncope TECHNIQUE: Frontal and lateral views of the chest. COMPARISON: 11/23/2023 slightly prominent and irregular hilum. FINDINGS: Lungs: Minimally prominent central bronchovascular markings, similar to prior. No consolidation. Pleural space: Unremarkable. No pneumothorax. Heart: Unremarkable. No cardiomegaly. Mediastinum: Unremarkable. Normal mediastinal contour. Bones/joints: Unremarkable. No acute fracture. IMPRESSION: Prominent right hilum, probably vascular, however consider adenopathy or other pathology.
== END 2023-12-07 07:11 | disposition home or self-care (01) ==
LOC: EC 02:47
DX: G89.29 Other chronic pain (principal); R55 Syncope and collapse; E11.9 Type 2 diabetes mellitus without complications; E66.9 Obesity, unspecified; F31.9 Bipolar disorder, unspecified; Z79.899 Other long term (current) drug therapy; Z88.5 Allergy status to narcotic agent; Z91.013 Allergy to seafood; Z20.822 Contact with and (suspected) exposure to COVID-19; Z68.43 Body mass index [BMI] 50.0-59.9, adult
CPT/HCPCS: 36415; 71046; 80053; 83735; 84484; 85025; 85610; 85730; 87636; 93005; 99285

== ENCOUNTER 2024-04-07 22:51 | Emergency (ER) | payer MEDICARE, OTHER ==
[2024-04-07 23:45] VITALS: TEMP 98.8
--- NOTE | 2024-04-07 23:50 | ED ---
General Adult HPI - General Chief complaint: Weakness Stated complaint: weakness Time Seen by Provider: 04/07/24 22:54 Source: patient, EMS, RN notes reviewed Mode of arrival: EMS Limitations: no limitations - History of Present Illness Initial comments: 44-year-old female presenting to the ED with complaints of generalized weakness with near syncope. Patient states over the past 4 to 5 days she has had reduced oral intake of both food and fluids. Patient notes that she is on Ozempic which she reports that suppresses her appetite. States today and yesterday has started to feel near syncopal. Did note an episode of sharp right-sided chest pain earlier which is now resolved. Currently denies chest pain or shortness of breath. Denies abdominal pain, nausea, vomiting, diarrhea. Denies fever or chills. - Related Data Home Medications Medication Instructions Recorded Confirmed Albuterol Sulfate [Albuterol 1 - 2 puff PO RT-Q4H PRN 11/09/23 11/09/23 Sulfate Hfa] Atorvastatin [Lipitor] 20 mg PO HS 11/09/23 11/09/23 Brexpiprazole [Rexulti] 0.5 mg PO DAILY 11/09/23 11/09/23 Dextromethorphan HBr/Bupropion 1 tab PO BID 11/09/23 11/09/23 [Auvelity ER 45-105 mg Tablet] Losartan [Cozaar] 50 mg PO DAILY 11/09/23 11/09/23 Montelukast [Singulair] 10 mg PO HS 11/09/23 11/09/23 Pantoprazole Sodium [Protonix] 20 mg PO DAILY 11/09/23 11/09/23 buPROPion SR [Wellbutrin SR] 100 mg PO DAILY 11/09/23 11/09/23 hydroCHLOROthiazide [Hydrodiuril] 25 mg PO DAILY 11/09/23 11/09/23 Previous Rx's Medication Instructions Recorded Acetaminophen Tab [Tylenol] 650 mg PO Q6HR PRN tab 11/13/23 Insulin Detemir (Levemir) [Levemir] 50 unit SQ HS #2 each 11/14/23 Syringe-Needle,Insulin,0.5 ml 1 syr SQ DIRECTED #30 each 11/14/23 [Insulin Syringe 30G 5/16" 1/2 ml] metFORMIN HCL [Glucophage] 500 mg PO BID #60 tab 11/14/23 Cephalexin [Keflex] 500 mg PO Q6HR 5 Days #20 cap 04/08/24 Allergies Allergy/AdvReac Type Severity Reaction Status Date / Time shellfish derived Allergy Rash/Hives Verified 12/07/23 04:28 tramadol Allergy Anaphylaxis Verified 12/07/23 04:28 Review of Systems ROS Statement: Those systems with pertinent positive or pertinent negative responses have been documented in the HPI. ROS Other: All systems not noted in ROS Statement are negative. Past Medical History Past Medical History: Asthma, COPD, Diabetes Mellitus, Fibromyalgia, Rheumatoid Arthritis (RA) Additional Past Medical History / Comment(s): obesity History of Any Multi-Drug Resistant Organisms: None Reported Past Surgical History: No Surgical Hx Reported Past Anesthesia/Blood Transfusion Reactions: No Reported Reaction Past Psychological History: No Psychological Hx Reported, Bipolar Smoking Status: Never smoker Past Alcohol Use History: None Reported Past Drug Use History: None Reported General Exam Limitations: no limitations General appearance: alert, in no apparent distress Eye exam: Present: normal appearance Neck exam: Present: normal inspection Respiratory exam: Present: normal lung sounds bilaterally Cardiovascular Exam: Present: regular rate GI/Abdominal exam: Present: soft, normal bowel sounds. Absent: distended, tenderness, guarding, rebound, rigid Neurological exam: Present: alert, oriented X3 Skin exam: Present: warm, dry Course Vital Signs 04/07/24 04/08/24 04/08/24 23:12 00:54 03:28 Temperature 98.8 F Pulse Rate 92 88 Respiratory 20 22 20 Rate Blood Pressure 94/54 102/69 102/69 O2 Sat by Pulse 92 L 92 L Oximetry 04/08/24 04/08/24 04:13 05:00 Temperature Pulse Rate 89 96 Respiratory 20 Rate Blood Pressure 121/79 O2 Sat by Pulse 94 L 93 L Oximetry Medical Decision Making - Medical Decision Making Was pt. sent in by a medical professional or institution (, PA, ICE PLATFORM SUPERVISOR, urgent care, hospital, or care home...) When possible be specific @ -No Did you speak to anyone other than the patient for history (EMS, parent, family, police, friend...)? What history was obtained from this source @ -No Did you review nursing and triage notes (agree or disagree)? Why? @ -I reviewed and agree with nursing and triage notes Were old charts reviewed (outside hosp., previous admission, EMS record, old EKG, old radiological studies, urgent care reports/EKG's, care home records)? Report findings @ -No old charts were reviewed Differential Diagnosis (chest pain, altered mental status, abdominal pain women, abdominal pain men, vaginal bleeding, weakness, fever, dyspnea, syncope, headache, dizziness, GI bleed, back pain, seizure, CVA, palpatations, mental health, musculoskeletal)? @ -Differential Weakness: Hypoglycemia, shock, sepsis, hyponatremia, anemia, infection, [place], ETOH, adverse medicine reaction, overdose, stroke, this is not meant to be an all-inclusive list. EKG interpreted by me (3pts min.). @ -EKG interpreted by me showing a sinus rhythm without acute ST or T wave changes at a rate of 93 bpm. TX 195, QRS 75, QT/QTc 357 407. X-rays interpreted by me (1pt min.). @ -Chest chest x-ray interpreted me which revealed no evidence of acute finding. CT interpreted by me (1pt min.). @ -None done U/S interpreted by me (1pt. min.). @ -None done What testing was considered but not performed or refused? (CT, X-rays, U/S, labs)? Why? @ -None What meds were considered but not given or refused? Why? @ -None Did you discuss the management of the patient with other professionals (professionals i.e. , PA, ICE PLATFORM SUPERVISOR, lab, RT, psych nurse, social security specialist, bridge inspector, teacher, staff air defense officer, case maker)? Give summary @ -No Was smoking cessation discussed for >3mins.? @ -No Was critical care preformed (if so, how long)? @ -No Were there social determinants of health that impacted care today? How? (H omelessness, low income, unemployed, alcoholism, drug addiction, transportation, low edu. Level, literacy, decrease access to med. care, senior care, rehab)? @ -No Was there de-escalation of care discussed even if they declined (Discuss DNR or withdrawal of care, Hospice)? DNR status @ -No What co-morbidities impacted this encounter? (DM, HTN, Smoking, COPD, CAD, Cancer, CVA, ARF, Chemo, Hep., AIDS, mental health diagnosis, sleep apnea, morbid obesity)? @ -None Was patient admitted / discharged? Hospital course, mention meds given and route, prescriptions, significant lab abnormalities, going to OR and other pertinent info. @ -Discharge 44-year-old female presented to the ED with complaints of generalized weakness. Reports that secondary to her antihyperglycemic's has had reduced appetite and has not had significantly decreased oral intake over the past 5 to 6 days. Laboratory studies reviewed. CBC shows an elevated white blood cell count 16.3. Chemistry panel does show some slight kidney injury with BUN of 27, creatinine 1.62. Troponin undetectable. UA does show evidence of infection with small leukocyte esterase, 10 white blood cells, contaminated with 5 squamous cells, however many bacteria. Patient provided prescription for Keflex to treat urinary tract infection. Advised good oral intake. Discharged home in stable condition. Discussed return precautions with patient who verbalized agreement. Undiagnosed new problem with uncertain prognosis? @ -No Drug Therapy requiring intensive monitoring for toxicity (Heparin, Nitro, Insulin, Cardizem)? @ -No Were any procedures done? @ -No Diagnosis/symptom? @ -Generalized weakness Acute, or Chronic, or Acute on Chronic? @ -Acute Uncomplicated (without systemic symptoms) or Complicated (systemic symptoms)? @ -Uncomplicated Side effects of treatment? @ -No Exacerbation, Progression, or Severe Exacerbation? @ -No Poses a threat to life or bodily function? How? (Chest pain, [place], [place], pneumonia, PE, COPD, DKA, ARF, appy, cholecystitis, CVA, Diverticulitis, Homicidal, Suicidal, threat to staff... and all critical care pts) @ -No - Lab Data Result diagrams: 04/08/24 00:56 04/08/24 00:56 Lab Results 04/08/24 04/08/24 04/08/24 Range/Units 00:56 00:56 00:56 WBC 16.3 H (3.8-10.6) k/uL RBC 5.44 H (3.80-5.40) m/uL Hgb 14.0 (11.4-16.0) gm/dL Hct 45.0 (34.0-46.0) % MCV 82.7 (80.0-100.0) fL MCH 25.8 (25.0-35.0) pg MCHC 31.2 (31.0-37.0) g/dL RDW 15.2 (11.5-15.5) % Plt Count 285 (150-450) k/uL MPV 7.8 Neutrophils % 68 % Lymphocytes % 22 % Monocytes % 5 % Eosinophils % 3 % Basophils % 1 % Neutrophils # 11.0 H (1.3-7.7) k/uL Lymphocytes # 3.6 (1.0-4.8) k/uL Monocytes # 0.9 (0-1.0) k/uL Eosinophils # 0.5 (0-0.7) k/uL Basophils # 0.1 (0-0.2) k/uL Hypochromasia Slight PT 10.4 (10.0-12.5) sec INR 0.9 (<1.2) APTT 22.0 (22.0-30.0) sec Sodium 135 L (137-145) mmol/L Potassium 4.3 (3.5-5.1) mmol/L Chloride 104 (98-107) mmol/L Carbon Dioxide 20 L (22-30) mmol/L Anion Gap 11 mmol/L BUN 27 H (7-17) mg/dL Creatinine 1.62 H (0.52-1.04) mg/dL Est GFR (CKD-EPI)AfAm 44 (>60 ml/min/1.73 sqM) Est GFR (CKD-EPI)NonAf 38 (>60 ml/min/1.73 sqM) Glucose 107 H (74-99) mg/dL Calcium 8.9 (8.4-10.2) mg/dL Magnesium 1.8 (1.6-2.3) mg/dL Total Bilirubin 0.8 (0.2-1.3) mg/dL AST 27 (14-36) U/L ALT 27 (4-34) U/L Alkaline Phosphatase 89 (38-126) U/L Troponin I (0.000-0.034) ng/mL Total Protein 6.4 (6.3-8.2) g/dL Albumin 4.1 (3.5-5.0) g/dL Urine Color Urine Appearance (Clear) Urine pH (5.0-8.0) Ur Specific [place] (1.001-1.035) Urine Protein (Negative) Urine Glucose (UA) (Negative) Urine Ketones (Negative) Urine Blood (Negative) Urine Nitrite (Negative) Urine Bilirubin (Negative) Urine Urobilinogen (<2.0) mg/dL Ur Leukocyte Esterase (Negative) Urine RBC (0-5) /hpf Urine WBC (0-5) /hpf Ur Squamous Epith Cells (0-4) /hpf Urine Bacteria (None) /hpf Hyaline Casts (0-2) /lpf Urine Mucus (None) /hpf 04/08/24 04/08/24 Range/Units 00:56 04:12 WBC (3.8-10.6) k/uL RBC (3.80-5.40) m/uL Hgb (11.4-16.0) gm/dL Hct (34.0-46.0) % MCV (80.0-100.0) fL MCH (25.0-35.0) pg MCHC (31.0-37.0) g/dL RDW (11.5-15.5) % Plt Count (150-450) k/uL MPV Neutrophils % % Lymphocytes % % Monocytes % % Eosinophils % % Basophils % % Neutrophils # (1.3-7.7) k/uL Lymphocytes # (1.0-4.8) k/uL Monocytes # (0-1.0) k/uL Eosinophils # (0-0.7) k/uL Basophils # (0-0.2) k/uL Hypochromasia PT (10.0-12.5) sec INR (<1.2) APTT (22.0-30.0) sec Sodium (137-145) mmol/L Potassium (3.5-5.1) mmol/L Chloride (98-107) mmol/L Carbon Dioxide (22-30) mmol/L Anion Gap mmol/L BUN (7-17) mg/dL Creatinine (0.52-1.04) mg/dL Est GFR (CKD-EPI)AfAm (>60 ml/min/1.73 sqM) Est GFR (CKD-EPI)NonAf (>60 ml/min/1.73 sqM) Glucose (74-99) mg/dL Calcium (8.4-10.2) mg/dL Magnesium (1.6-2.3) mg/dL Total Bilirubin (0.2-1.3) mg/dL AST (14-36) U/L ALT (4-34) U/L Alkaline Phosphatase (38-126) U/L Troponin I <0.012 (0.000-0.034) ng/mL Total Protein (6.3-8.2) g/dL Albumin (3.5-5.0) g/dL Urine Color Colorless Urine Appearance Cloudy H (Clear) Urine pH 5.0 (5.0-8.0) Ur Specific [place] 1.008 (1.001-1.035) Urine Protein Negative (Negative) Urine Glucose (UA) Negative (Negative) Urine Ketones Negative (Negative) Urine Blood Negative (Negative) Urine Nitrite Negative (Negative) Urine Bilirubin Negative (Negative) Urine Urobilinogen <2.0 (<2.0) mg/dL Ur Leukocyte Esterase Small H (Negative) Urine RBC 1 (0-5) /hpf Urine WBC 10 H (0-5) /hpf Ur Squamous Epith Cells 5 H (0-4) /hpf Urine Bacteria Many H (None) /hpf Hyaline Casts 43 H (0-2) /lpf Urine Mucus Occasional H (None) /hpf Disposition Clinical Impression: Generalized weakness Disposition: HOME SELF-CARE Condition: Good Instructions (If sedation given, give patient instructions): Urinary Tract Infection in Women (ED) Additional Instructions: Please return to the Emergency Department if symptoms worsen or any other concerns. Please follow-up with your PCP. Prescriptions: Cephalexin [Keflex] 500 mg PO Q6HR 5 Days #20 cap Is patient prescribed a controlled substance at d/c from ED?: No Referrals: Deirdre Stein DO [Primary Care Provider] - 1-2 days Time of Disposition: 06:07
[2024-04-08] MEDS: SODIUM CHLORIDE 0.9% 1,000 ML IV STA (00:54)
[2024-04-08 01:27] LABS: Basophils # (A) 0.1 k/uL (0-0.2); Basophils % (A) 1 %; Eosinophils # (A) 0.5 k/uL (0-0.7); Eosinophils % (A) 3 %; Hypochromasia Slight; Lymphocytes # (A) 3.6 k/uL (1.0-4.8); Lymphocytes % (A) 22 %; MCH 25.8 pg (25.0-35.0); MCHC 31.2 g/dL (31.0-37.0); MCV 82.7 fL (80.0-100.0); Mean Platelet Volume 7.8; Monocytes # (A) 0.9 k/uL (0-1.0); Monocytes % (A) 5 %; Neutrophils % (A) 68 %; Platelet Count 285 k/uL (150-450); RBC 5.44 m/uL (3.80-5.40); RDW 15.2 % (11.5-15.5); WBC 16.3 k/uL (3.8-10.6)
[2024-04-08 01:37] LABS: ALT 27 U/L (4-34); African American GFR (CKD) 44 (>60 ml/min/1.73 sqM); Albumin 4.1 g/dL (3.5-5.0); Anion Gap 11 mmol/L; Blood Urea Nitrogen 27 mg/dL (7-17); Calcium 8.9 mg/dL (8.4-10.2); Carbon Dioxide 20 mmol/L (22-30); Chloride 104 mmol/L (98-107); Glucose 107 mg/dL (74-99); Non-African American GFR(CKD) 38 (>60 ml/min/1.73 sqM); Sodium 135 mmol/L (137-145); Total Bilirubin 0.8 mg/dL (0.2-1.3); Total Protein 6.4 g/dL (6.3-8.2)
[2024-04-08 01:38] LABS: AST 27 U/L (14-36); Alkaline Phosphatase 89 U/L (38-126); Magnesium 1.8 mg/dL (1.6-2.3); Potassium 4.3 mmol/L (3.5-5.1)
[2024-04-08] MEDS: CYCLOBENZAPRINE 10 MG TAB PO SCH (01:44)
[2024-04-08 02:00] LABS: INR 0.9 (<1.2); Prothrombin Time 10.4 sec (10.0-12.5)
--- NOTE | 2024-04-08 03:43 | XR ---
EXAM: XR Chest, 2 Views CLINICAL HISTORY: ITS.REASON XR Reason: Chest Pain TECHNIQUE: Frontal and lateral views of the chest. COMPARISON: No relevant prior studies available. FINDINGS: Lungs: No consolidation or mass. Pleural space: No effusion. Heart: No cardiomegaly. Bones/joints: No acute findings. IMPRESSION: No acute cardiopulmonary process.
[2024-04-08 05:19] LABS: Appearance,Urine Cloudy (Clear); Bacteria,Urine Many /hpf; Bilirubin,Urine Negative (Negative); Blood,Urine Negative (Negative); Color,Urine Colorless; Glucose,Urine (UA) Negative (Negative); Hyaline Casts,Urine 43 /lpf (0-2); Ketones,Urine Negative (Negative); Leukocyte Esterase,Urine Small (Negative); Mucus,Urine Occasional /hpf; Nitrite,Urine Negative (Negative); Protein,Urine Negative (Negative); RBC,Urine 1 /hpf (0-5); Specific Gravity,Urine 1.008 (1.001-1.035); Squamous Epithelial Cell,Urine 5 /hpf (0-4); Urobilinogen,Urine <2.0 mg/dL (<2.0); WBC,Urine 10 /hpf (0-5)
[2024-04-08 06:33] VITALS: BP 108/62; PULSE 94; RESP 19
[2024-04-08] MEDS ORDERED: CYCLOBENZAPRINE 10 MG TAB PO SCH (21:00)
== END 2024-04-08 06:34 | disposition home or self-care (01) ==
LOC: EC 22:51
DX: R53.1 Weakness (principal); Z91.013 Allergy to seafood; Z88.5 Allergy status to narcotic agent
CPT/HCPCS: 36415; 71046; 80053; 81001; 83735; 84484; 85025; 85610; 85730; 93005; 96360; 96361; 99285

== ENCOUNTER 2024-10-26 16:36 | Emergency (ER) | payer MEDICARE, OTHER ==
[2024-10-26 16:49] VITALS: TEMP 98
--- NOTE | 2024-10-26 17:18 | ED ---
Chest Pain HPI - General Chief Complaint: Chest Pain Stated Complaint: Chest pain, foot pain Time Seen by Provider: 10/26/24 17:16 Source: patient, RN notes reviewed Mode of arrival: ambulatory Limitations: no limitations - History of Present Illness Initial Comments: 44-year-old female presented to the ER for evaluation of chest discomfort and bilateral feet pain. Patient reports a history of 2 diabetes and has neuropathy. She states since last night she has had an increase in the burning sensation to bilateral feet. She states the pain feels more intense than normal. She has taken prescribed Percocet, without relief. Patient also endorsing left-sided chest discomfort. She states this also started last night and she went to bed with it. She states yesterday her chest was "hurting". Today she describes the chest discomfort as a tightness sensation. She does report mild radiation to left shoulder. Patient denies any known cardiac history. She denies any nausea, vomiting, shortness of breath, dizziness or lightheadedness. Patient denies history of DVTs or PEs no current blood thinning medications. Patient states approximately 9 years ago she had to be "shocked" as her heart stopped. Patient has no other complaints at this time. Patient reports she is following up with Cardiology on 10 30 24. Patient states she does not currently have a PCP since she has been dismissed from Dr. Ramirez's office. - Related Data Home Medications Medication Instructions Recorded Confirmed Albuterol Sulfate [Albuterol 1 - 2 puff PO RT-Q4H PRN 11/09/23 09/01/24 Sulfate Hfa] Atorvastatin [Lipitor] 20 mg PO HS 11/09/23 09/01/24 Brexpiprazole [Rexulti] 0.5 mg PO DAILY 11/09/23 09/01/24 Dextromethorphan HBr/Bupropion 1 tab PO BID 11/09/23 09/01/24 [Auvelity ER 45-105 mg Tablet] Losartan [Cozaar] 50 mg PO DAILY 11/09/23 09/01/24 Montelukast [Singulair] 10 mg PO HS 11/09/23 09/01/24 Pantoprazole Sodium [Protonix] 20 mg PO DAILY 11/09/23 09/01/24 hydroCHLOROthiazide [Hydrodiuril] 25 mg PO DAILY 11/09/23 09/01/24 Insulin Glargine,Hum.rec.anlog 40 units SQ DAILY 09/01/24 09/01/24 [Lantus Solostar Pen] Lumateperone Tosylate [Caplyta] 42 mg PO DAILY 09/01/24 09/01/24 Semaglutide [Ozempic] 1 mg SQ TH 09/01/24 09/01/24 hydrOXYzine pamoate [Vistaril] 50 mg PO QID 09/01/24 09/01/24 oxyCODONE-APAP 10-325MG [Percocet 1 tab PO Q8HR PRN 09/01/24 09/01/24 10-325 mg] predniSONE 10 mg PO DAILY 09/01/24 09/01/24 Previous Rx's Medication Instructions Recorded Acetaminophen Tab [Tylenol] 650 mg PO Q6HR PRN tab 11/13/23 Syringe-Needle,Insulin,0.5 ml 1 syr SQ DIRECTED #30 each 11/14/23 [Insulin Syringe 30G 5/16" 1/2 ml] metFORMIN HCL [Glucophage] 500 mg PO BID #60 tab 11/14/23 Allergies Allergy/AdvReac Type Severity Reaction Status Date / Time shellfish derived Allergy Rash/Hives Verified 10/26/24 16:49 tramadol Allergy Anaphylaxis Verified 10/26/24 16:49 Review of Systems ROS Statement: Those systems with pertinent positive or pertinent negative responses have been documented in the HPI. ROS Other: All systems not noted in ROS Statement are negative. EKG Findings - EKG Comments: EKG Findings:: EKG taken at 1700 showing a sinus tachycardia. No ST segment elevations or depressions. No T wave abnormalities. Ventricular rate 103, CT interval 168, QRS duration 72, QT/QTc 315/375. Past Medical History Past Medical History: Asthma, COPD, Diabetes Mellitus, Fibromyalgia, Hypertension, Rheumatoid Arthritis (RA) Additional Past Medical History / Comment(s): obesity. ABD PAIN History of Any Multi-Drug Resistant Organisms: None Reported Past Surgical History: No Surgical Hx Reported Additional Past Surgical History / Comment(s): CYST REMOVED FROM HEAD. COLONOSCOPY Past Anesthesia/Blood Transfusion Reactions: No Reported Reaction Past Psychological History: Bipolar Smoking Status: Never smoker Past Alcohol Use History: None Reported Past Drug Use History: Marijuana - Past Family History Mother Family Medical History: Cancer General Exam Limitations: no limitations General appearance: alert, in no apparent distress Respiratory exam: Present: normal lung sounds bilaterally, chest wall tenderness (Left anterior medial) Cardiovascular Exam: Present: normal rhythm, tachycardia, normal heart sounds. Absent: systolic murmur, diastolic murmur, rubs, gallop, clicks Extremities exam: Present: normal inspection, full ROM, normal capillary refill, other (2+ bilateral DP and PT pulse. No wounds). Absent: tenderness, pedal edema, joint swelling, calf tenderness Neurological exam: Present: alert, oriented X3, CN II-XII intact Psychiatric exam: Present: anxious Skin exam: Present: warm, dry, intact, normal color. Absent: rash Course Vital Signs 10/26/24 10/26/24 10/26/24 16:40 17:04 17:05 Temperature 98 F Pulse Rate 116 H Pulse Rate [ 103 H Pulse Oximetery ] Respiratory 18 20 Rate Blood Pressure 112/76 O2 Sat by Pulse 95 Oximetry 10/26/24 20:54 Temperature Pulse Rate 84 Pulse Rate [ Pulse Oximetery ] Respiratory 16 Rate Blood Pressure 114/76 O2 Sat by Pulse 94 L Oximetry - Reevaluation(s) Reevaluation #1: 10/26/24 18:49 HEART score 4. 10/26/24 19:27 Patient reevaluated. Patient reporting mild improvement of chest discomfort. Patient refusing observation admission. She is agreeable for second troponin. Chest Pain MDM - MDM Was pt. sent in by a medical professional or institution (, PA, LIFT MANAGER, urgent care, hospital, or jail...) When possible be specific @ -No Did you speak to anyone other than the patient for history (EMS, parent, family, police, friend...)? What history was obtained from this source @ -No Did you review nursing and triage notes (agree or disagree)? Why? @ -I reviewed and agree with nursing and triage notes Were old charts reviewed (outside hosp., previous admission, EMS record, old EKG, old radiological studies, urgent care reports/EKG's, jail records)? Report findings @ -No old charts were reviewed Differential Diagnosis (chest pain, altered mental status, abdominal pain women, abdominal pain men, vaginal bleeding, weakness, fever, dyspnea, syncope, headache, dizziness, GI bleed, back pain, seizure, CVA, palpatations, mental health, musculoskeletal)? @ -Differential Chest Pain:Stable Angina, Unstable Angina, STEMI, NSTEMI Aortic Dissection, Pneumothorax, Musculoskeletal, Esophageal Spasm GERD, Cholecystitis, Pancreatitis, Zoster, this is not meant to be an all-inclusive list. EKG interpreted by me (3pts min.). @ -As above X-rays interpreted by me (1pt min.). @ -CXR interpreted by me negative for focal consolidations, pneumothorax or pleural effusions. CT interpreted by me (1pt min.). @ -None done U/S interpreted by me (1pt. min.). @ -None done What testing was considered but not performed or refused? (CT, X-rays, U/S, labs)? Why? @ -None What meds were considered but not given or refused? Why? @ -None Did you discuss the management of the patient with other professionals (professionals i.e. , PA, LIFT MANAGER, lab, RT, psych nurse, social worker health services, product mgr, teacher, industrial relations officer, case worker)? Give summary @ -No Was smoking cessation discussed for >3mins.? @ -No Was critical care preformed (if so, how long)? @ -No Were there social determinants of health that impacted care today? How? (Homelessness, low income, unemployed, alcoholism, drug addiction, transportation, low edu. Level, literacy, decrease access to med. care, fdc, rehab)? @ -Patient does not currently have a PCP. Was there de-escalation of care discussed even if they declined (Discuss DNR or withdrawal of care, Hospice)? DNR status @ -No What co-morbidities impacted this encounter? (DM, HTN, Smoking, COPD, CAD, Cancer, CVA, ARF, Chemo, Hep., AIDS, mental health diagnosis, sleep apnea, morbid obesity)? @ -Obese, diabetes mellitus, fibromyalgia, hypertension, rheumatoid arthritis Was patient admitted / discharged? Hospital course, mention meds given and route, prescriptions, significant lab abnormalities, going to OR and other pertinent info. @ -Discharge. 44-year-old female presented to the ER for evaluation of bilateral foot pain and chest discomfort. Vitals upon examination showing tachycardia at 116 bpm vitals otherwise stable. Patient is extremely anxious on exam. Exam remarkable for tenderness to the left anterior chest wall. There is no overlying skin changes. No paradoxical chest wall motions. Patient is neurovascularly intact. Cardiac workup will be obtained, patient is agreeable. CBC showing a WBC of 11.3 no left shift. D-dimer negative at 0.29. Troponin x 2 was negative. EKG showing sinus tachycardia with no acute evidence of infarct or ischemia. Tachycardia believed to be due to anxiety. Viral swabs negative. Urinalysis with signs of dehydration with 1+ protein and trace ketones. There is moderate bacteria but sample is contaminated with 17 epithelial cells. Urine will be sent for culture prior to antibiotic initiation as patient denies any urinary complaints. Patient given IV fluids and Toradol for symptom control in the ER. As patient denies injury to feet/no focal bony tenderness, negative D- dimer, and no wounds pain believed to be from neuropathy. Upon reevaluation, patient resting comfortably in exam room no signs of acute distress. Patient reporting improvement of chest discomfort. Patient is stable for discharge at this time. I instructed her to follow-up with cardiology as scheduled on 10/30/24. I also strongly encouraged her to establish care with PCP. Patient is agreeable. Strict return parameters discussed. Patient discharged in stable condition with follow-up to PCP. Patient verbally expressed understanding and agreement with care plan. Case discussed with ED attending, Dr. Nelson. Undiagnosed new problem with uncertain prognosis? @ -No Drug Therapy requiring intensive monitoring for toxicity (Heparin, Nitro, Insulin, Cardizem)? @ -No Were any procedures done? @ -No Diagnosis/symptom? @ -Atypical chest pain/anxiety/neuropathy Acute, or Chronic, or Acute on Chronic? @ -Acute Uncomplicated (without systemic symptoms) or Complicated (systemic symptoms)? @ -Uncomplicated Side effects of treatment? @ -No Exacerbation, Progression, or Severe Exacerbation? @ -No Poses a threat to life or bodily function? How? (Chest pain, [place], [place], pneumonia, PE, COPD, DKA, ARF, appy, cholecystitis, CVA, Diverticulitis, Homicidal, Suicidal, threat to staff... and all critical care pts) @ -Chest pain can be ACS which can lead to lethal cardiac arrhythmias. Disposition Clinical Impression: Atypical chest pain Disposition: HOME SELF-CARE Condition: Stable Instructions (If sedation given, give patient instructions): Chest Pain (ED) Additional Instructions: Follow-up with PCP. I also recommend close follow-up with cardiology as scheduled on 10 30 24. Return to the ER for any new or worsening concerns. Is patient prescribed a controlled substance at d/c from ED?: No Referrals: Rayo Ramirez MD [Primary Care Provider] - 1-2 days Forms: Area PCPs Time of Disposition: 20:49
[2024-10-26] MEDS: SODIUM CHLORIDE 0.9% 1,000 ML IV STA (17:24)
[2024-10-26] MEDS: KETOROLAC 15 MG/ML 1 ML VIAL IVP STA (17:26)
[2024-10-26 17:54] LABS: Basophils # (A) 0.1 k/uL (0-0.2); Basophils % (A) 1 %; Eosinophils # (A) 0.3 k/uL (0-0.7); Eosinophils % (A) 2 %; HCT 44.5 % (34.0-46.0); HGB 14.7 gm/dL (11.4-16.0); Lymphocytes # (A) 2.9 k/uL (1.0-4.8); Lymphocytes % (A) 26 %; MCH 28.8 pg (25.0-35.0); MCV 87.3 fL (80.0-100.0); Mean Platelet Volume 7.5; Monocytes # (A) 0.3 k/uL (0-1.0); Monocytes % (A) 3 %; Neutrophils # (A) 7.6 k/uL (1.3-7.7); Neutrophils % (A) 67 %; Platelet Count 299 k/uL (150-450); RDW 13.1 % (11.5-15.5); WBC 11.3 k/uL (3.8-10.6)
--- NOTE | 2024-10-26 18:09 | XR ---
EXAMINATION TYPE: XR chest 2V DATE OF EXAM: 10/26/2024 5:59 PM COMPARISON: Prior chest radiographs, most recently dated 04/08/2024. CLINICAL INDICATION: Female, 44 years old with history of Chest Pain; [facility] TECHNIQUE: XR chest 2V Frontal and lateral views of the chest. FINDINGS: Study limited due to patient body habitus. Lungs/Pleura: There is no evidence of pleural effusion, focal consolidation, or pneumothorax. Pulmonary vascularity: Unremarkable. Heart/mediastinum: Cardiomediastinal silhouette is unremarkable. Musculoskeletal: No acute osseous pathology. Other findings: None IMPRESSION: No acute cardiopulmonary disease/process. [facility], , 10/26/2024 6:06 PM
[2024-10-26 18:15] LABS: ALT 28 U/L (4-34); AST 23 U/L (14-36); African American GFR (CKD) >90 (>60 ml/min/1.73 sqM); Albumin 4.3 g/dL (3.5-5.0); Alkaline Phosphatase 84 U/L (38-126); Anion Gap 9 mmol/L; Blood Urea Nitrogen 19 mg/dL (7-17); Calcium 9.6 mg/dL (8.4-10.2); Carbon Dioxide 31 mmol/L (22-30); Chloride 97 mmol/L (98-107); Glucose 149 mg/dL (74-99); Magnesium 1.7 mg/dL (1.6-2.3); Non-African American GFR(CKD) 84 (>60 ml/min/1.73 sqM); Potassium 4.3 mmol/L (3.5-5.1); Sodium 137 mmol/L (137-145); Total Bilirubin 0.4 mg/dL (0.2-1.3); Total Protein 6.6 g/dL (6.3-8.2)
[2024-10-26 18:21] LABS: INR 0.9 (<1.2); Prothrombin Time 10.1 sec (10.0-12.5)
[2024-10-26 19:17] LABS: Appearance,Urine Cloudy (Clear); Bacteria,Urine Moderate /hpf; Bilirubin,Urine 1+ (Negative); Blood,Urine Negative (Negative); Color,Urine Dark Yellow; Glucose,Urine (UA) Negative (Negative); Hyaline Casts,Urine 66 /lpf (0-2); Ketones,Urine Trace (Negative); Leukocyte Esterase,Urine Trace (Negative); Mucus,Urine Many /hpf; Nitrite,Urine Negative (Negative); Protein,Urine 1+ (Negative); RBC,Urine 1 /hpf (0-5); Specific Gravity,Urine 1.033 (1.001-1.035); Squamous Epithelial Cell,Urine 17 /hpf (0-4); WBC,Urine 6 /hpf (0-5)
[2024-10-26 20:58] VITALS: BP 114/76; PULSE 84; RESP 16
== END 2024-10-26 20:54 | disposition home or self-care (01) ==
LOC: EC 16:36
DX: R07.89 Other chest pain (principal); I10 Essential (primary) hypertension; E11.40 Type 2 diabetes mellitus with diabetic neuropathy, unspecified; M06.9 Rheumatoid arthritis, unspecified; E66.9 Obesity, unspecified; M79.7 Fibromyalgia; Z88.5 Allergy status to narcotic agent; Z91.013 Allergy to seafood
CPT/HCPCS: 36415; 93005; 85379; 80053; 83735; 84484; 85025; 85610; 85730; 81001; 87086; 87636; 71046; 99285; 96374; 96361; J1885; 87077; 87186

== ENCOUNTER 2024-11-16 08:12 | Emergency (ER) | payer MEDICARE, OTHER ==
[2024-11-16 08:18] VITALS: TEMP 97.6
--- NOTE | 2024-11-16 08:53 | ED ---
Female Urogenital HPI - General Chief complaint: Vaginal Bleeding Stated complaint: vag bleeding Time Seen by Provider: 11/16/24 08:52 Source: patient Mode of arrival: ambulatory Limitations: no limitations - History of Present Illness Initial comments: Patient is a 44-year-old female presenting to the ER for evaluation of vaginal bleeding. Patient states last night she noted a small amount of blood which has continued into this morning. She states the blood is dark and clotting. She does admit to going through menopause approximately 1 year ago. She also is reporting some suprapubic/left-sided lower abdominal pain. She denies any d ysuria or urinary complaints, constipation/diarrhea, dizziness, lightheadedness, chest pain, shortness of breath, nausea, vomiting or fevers. Patient denies as she is not sexually active. - Related Data Home Medications Medication Instructions Recorded Confirmed Albuterol Sulfate [Albuterol 1 - 2 puff PO RT-Q4H PRN 11/09/23 09/01/24 Sulfate Hfa] Atorvastatin [Lipitor] 20 mg PO HS 11/09/23 09/01/24 Brexpiprazole [Rexulti] 0.5 mg PO DAILY 11/09/23 09/01/24 Dextromethorphan HBr/Bupropion 1 tab PO BID 11/09/23 09/01/24 [Auvelity ER 45-105 mg Tablet] Losartan [Cozaar] 50 mg PO DAILY 11/09/23 09/01/24 Montelukast [Singulair] 10 mg PO HS 11/09/23 09/01/24 Pantoprazole Sodium [Protonix] 20 mg PO DAILY 11/09/23 09/01/24 hydroCHLOROthiazide [Hydrodiuril] 25 mg PO DAILY 11/09/23 09/01/24 Insulin Glargine,Hum.rec.anlog 40 units SQ DAILY 09/01/24 09/01/24 [Lantus Solostar Pen] Lumateperone Tosylate [Caplyta] 42 mg PO DAILY 09/01/24 09/01/24 Semaglutide [Ozempic] 1 mg SQ TH 09/01/24 09/01/24 hydrOXYzine pamoate [Vistaril] 50 mg PO QID 09/01/24 09/01/24 oxyCODONE-APAP 10-325MG [Percocet 1 tab PO Q8HR PRN 09/01/24 09/01/24 10-325 mg] predniSONE 10 mg PO DAILY 09/01/24 09/01/24 Previous Rx's Medication Instructions Recorded Acetaminophen Tab [Tylenol] 650 mg PO Q6HR PRN tab 11/13/23 Syringe-Needle,Insulin,0.5 ml 1 syr SQ DIRECTED #30 each 11/14/23 [Insulin Syringe 30G 5/16" 1/2 ml] metFORMIN HCL [Glucophage] 500 mg PO BID #60 tab 11/14/23 Ketorolac [Toradol] 10 mg PO Q8HR #15 tab 10/29/24 Nitrofurantoin Monohyd/M-Cryst 100 mg PO Q12HR #14 cap 10/29/24 [Macrobid] Allergies Allergy/AdvReac Type Severity Reaction Status Date / Time shellfish derived Allergy Rash/Hives Verified 11/16/24 08:18 tramadol Allergy Anaphylaxis Verified 11/16/24 08:18 naproxen AdvReac Rash/Hives Verified 11/16/24 08:18 Review of Systems ROS Statement: Those systems with pertinent positive or pertinent negative responses have been documented in the HPI. ROS Other: All systems not noted in ROS Statement are negative. Past Medical History Past Medical History: Asthma, COPD, Diabetes Mellitus, Fibromyalgia, Hypertension, Rheumatoid Arthritis (RA) Additional Past Medical History / Comment(s): obesity. ABD PAIN History of Any Multi-Drug Resistant Organisms: None Reported Past Surgical History: No Surgical Hx Reported Additional Past Surgical History / Comment(s): CYST REMOVED FROM HEAD. COLONOSCOPY Past Anesthesia/Blood Transfusion Reactions: No Reported Reaction Past Psychological History: Bipolar Smoking Status: Never smoker Past Alcohol Use History: None Reported Past Drug Use History: Marijuana - Past Family History Mother Family Medical History: Cancer General Exam Limitations: no limitations General appearance: alert, in no apparent distress, anxious Respiratory exam: Present: normal lung sounds bilaterally. Absent: respiratory distress, wheezes, rales, rhonchi, stridor Cardiovascular Exam: Present: regular rate, normal rhythm, normal heart sounds. Absent: systolic murmur, diastolic murmur, rubs, gallop, clicks GI/Abdominal exam: Present: soft, normal bowel sounds. Absent: distended, tenderness, guarding, rebound, rigid External exam: Present: normal external exam Speculum exam: Present: vaginal bleeding Neurological exam: Present: alert, oriented X3, CN II-XII intact Psychiatric exam: Present: anxious Skin exam: Present: warm, dry, intact, normal color. Absent: rash Course Vital Signs 11/16/24 11/16/24 11/16/24 08:14 09:54 11:18 Temperature 97.6 F Pulse Rate 105 H 87 100 Respiratory 18 19 18 Rate Blood Pressure 151/91 114/90 124/83 O2 Sat by Pulse 94 L 91 L 91 L Oximetry - Reevaluation(s) Reevaluation #1: 11/16/24 08:52 Exam performed and chaperoned by Khushbu Aggarwal RN. Medical Decision Making - Medical Decision Making Was pt. sent in by a medical professional or institution (, PA, TISSUE REWINDER, urgent care, hospital, or residential...) When possible be specific @ -No Did you speak to anyone other than the patient for history (EMS, parent, family, police, friend...)? What history was obtained from this source @ -No Did you review nursing and triage notes (agree or disagree)? Why? @ -I reviewed and agree with nursing and triage notes Were old charts reviewed (outside hosp., previous admission, EMS record, old EKG, old radiological studies, urgent care reports/EKG's, residential records)? Report findings @ -No old charts were reviewed Differential Diagnosis (chest pain, altered mental status, abdominal pain women, abdominal pain men, vaginal bleeding, weakness, fever, dyspnea, syncope, headache, dizziness, GI bleed, back pain, seizure, CVA, palpatations, mental health, musculoskeletal)? @ -Differential Vaginal Bleeding:Spontaneous , threatened , molar , ectopic , bloody show, incompetent cervix, abruptioplacenta, placenta previa, uterine rupture, dysfunctional uterine bleeding, hemorrhage, uterine fibroids, this is not meant to be an all-inclusive list. EKG interpreted by me (3pts min.). @ -None done X-rays interpreted by me (1pt min.). @ -None done CT interpreted by me (1pt min.). @ -None done U/S interpreted by me (1pt. min.). @ -Transvaginal ultrasound showing a normal endometrium. There are multiple heterogeneous masses in the uterus largest measuring 2.2 cm. Most likely fibromas. No free fluid in the cul-de-sac. Limited evaluation of ovaries. What testing was considered but not performed or refused? (CT, X-rays, U/S, labs)? Why? @ -STD testing considered not performed as patient reports she is not sexually active, patient agreeable. What meds were considered but not given or refused? Why? @ -None Did you discuss the management of the patient with other professionals (professionals i.e. , PA, TISSUE REWINDER, lab, RT, psych nurse, high school social studies teacher, supervisor roller printing, te acher, division officer weapons department, rehabilitation case coordinator)? Give summary @ -No Was smoking cessation discussed for >3mins.? @ -No Was critical care preformed (if so, how long)? @ -No Were there social determinants of health that impacted care today? How? (Homelessness, low income, unemployed, alcoholism, drug addiction, transportation, low edu. Level, literacy, decrease access to med. care, shelter, rehab)? @ -No Was there de-escalation of care discussed even if they declined (Discuss DNR or withdrawal of care, Hospice)? DNR status @ -No What co-morbidities impacted this encounter? (DM, HTN, Smoking, COPD, CAD, C ancer, CVA, ARF, Chemo, Hep., AIDS, mental health diagnosis, sleep apnea, morbid obesity)? @ -None Was patient admitted / discharged? Hospital course, mention meds given and route, prescriptions, significant lab abnormalities, going to OR and other pertinent info. @ -Discharge. 44-year-old female presented to the ER for evaluation of vaginal bleeding. On rooming, history and physical exam completed. Patient is tachycardic at 105 upon arrival which is likely due to anxiety. Vitals otherwise within acceptable limits. Pelvic exam performed and chaperoned by Khushbu Aggarwal RN. There is minimal vaginal bleeding present on exam. No cervical motion tenderness. Patient laboratory studies showing a stable hemoglobin of 14.8. Serum hCG unexpected. Urinalysis with large blood and greater than 182 RBCs which is likely reactive from vaginal bleeding. Urine will be sent for culture. Antibiotics held at this time as patient recently treated with Macrobid for UTI. Denies concern of STDs as she is not sexually active for ultrasound showing of normal endometrium with fibroids present. This may be source of bleeding. Patient given Ativan in the ER for anxiety. On reevaluation, patient sleeping in exam room no signs of acute distress. Results discussed with patient, all questions answered. I advised close follow-up with [facility]INE[facility] for reevaluation. Strict return parameters discussed. Patient discharged in stable condition with follow-up to PCP. Patient verbally expressed understanding and agreement with care plan. Case discussed with ED attending, Dr. Gutierrez. Undiagnosed new problem with uncertain prognosis? @ -No Drug Therapy requiring intensive monitoring for toxicity (Heparin, Nitro, Insulin, Cardizem)? @ -No Were any procedures done? @ -No Diagnosis/symptom? @ -Dysfunctional uterine bleeding Acute, or Chronic, or Acute on Chronic? @ -Acute Uncomplicated (without systemic symptoms) or Complicated (systemic symptoms)? @ -Uncomplicated Side effects of treatment? @ -No Exacerbation, Progression, or Severe Exacerbation? @ -No Poses a threat to life or bodily function? How? (Chest pain, [place], [place], pneumonia, PE, COPD, DKA, ARF, appy, cholecystitis, CVA, Diverticulitis, Homicidal, Suicidal, threat to staff... and all critical care pts) @ -No - Lab Data Result diagrams: 11/16/24 09:20 11/16/24 09:20 Lab Results 11/16/24 11/16/24 11/16/24 Range/Units 09:20 09:20 09:20 WBC 16.3 H (3.8-10.6) k/uL RBC 5.19 (3.80-5.40) m/uL Hgb 14.8 (11.4-16.0) gm/dL Hct 44.4 (34.0-46.0) % MCV 85.6 (80.0-100.0) fL MCH 28.4 (25.0-35.0) pg MCHC 33.2 (31.0-37.0) g/dL RDW 13.6 (11.5-15.5) % Plt Count 293 (150-450) k/uL MPV 7.2 Neutrophils % 69 % Lymphocytes % 23 % Monocytes % 4 % Eosinophils % 3 % Basophils % 0 % Neutrophils # 11.3 H (1.3-7.7) k/uL Lymphocytes # 3.7 (1.0-4.8) k/uL Monocytes # 0.6 (0-1.0) k/uL Eosinophils # 0.4 (0-0.7) k/uL Basophils # 0.1 (0-0.2) k/uL Sodium 138 (137-145) mmol/L Potassium 4.0 (3.5-5.1) mmol/L Chloride 98 (98-107) mmol/L Carbon Dioxide 28 (22-30) mmol/L Anion Gap 12 mmol/L BUN 24 H (7-17) mg/dL Creatinine 0.73 (0.52-1.04) mg/dL Est GFR (CKD-EPI)AfAm >90 (>60 ml/min/1.73 sqM) Est GFR (CKD-EPI)NonAf >90 (>60 ml/min/1.73 sqM) Glucose 110 H (74-99) mg/dL Calcium 9.8 (8.4-10.2) mg/dL Total Bilirubin 0.9 (0.2-1.3) mg/dL AST 23 (14-36) U/L ALT 27 (4-34) U/L Alkaline Phosphatase 97 (38-126) U/L Total Protein 6.9 (6.3-8.2) g/dL Albumin 4.4 (3.5-5.0) g/dL HCG, Qual Not Detected Urine Color Light Red Urine Appearance Cloudy H (Clear) Urine pH 5.5 (5.0-8.0) Ur Specific [place] 1.022 (1.001-1.035) Urine Protein Trace H (Negative) Urine Glucose (UA) Negative (Negative) Urine Ketones Negative (Negative) Urine Blood Large H (Negative) Urine Nitrite Negative (Negative) Urine Bilirubin Negative (Negative) Urine Urobilinogen <2.0 (<2.0) mg/dL Ur Leukocyte Esterase Negative (Negative) Urine RBC >182 H (0-5) /hpf Urine WBC 80 H (0-5) /hpf Ur Squamous Epith Cells 1 (0-4) /hpf Urine Mucus Rare H (None) /hpf - Radiology Data Radiology results: report reviewed, image reviewed Disposition Clinical Impression: Uterine fibroid, Dysfunctional uterine bleeding Disposition: HOME SELF-CARE Condition: Stable Instructions (If sedation given, give patient instructions): Abnormal (Dysfunctional) Uterine Bleeding (ED) Additional Instructions: Follow-up with PCP and [facility]. Return to the ER for any new or worsening concerns. Is patient prescribed a controlled substance at d/c from ED?: No Referrals: Candy Fuentes MD [Primary Care Provider] - 1-2 days Brad Jackson MD [STAFF PHYSICIAN] - 1-2 days Time of Disposition: 10:21
[2024-11-16 09:29] LABS: Basophils # (A) 0.1 k/uL (0-0.2); Basophils % (A) 0 %; Eosinophils # (A) 0.4 k/uL (0-0.7); Eosinophils % (A) 3 %; HCT 44.4 % (34.0-46.0); HGB 14.8 gm/dL (11.4-16.0); Lymphocytes # (A) 3.7 k/uL (1.0-4.8); Lymphocytes % (A) 23 %; MCH 28.4 pg (25.0-35.0); MCHC 33.2 g/dL (31.0-37.0); MCV 85.6 fL (80.0-100.0); Mean Platelet Volume 7.2; Monocytes # (A) 0.6 k/uL (0-1.0); Monocytes % (A) 4 %; Neutrophils # (A) 11.3 k/uL (1.3-7.7); Neutrophils % (A) 69 %; Platelet Count 293 k/uL (150-450); RBC 5.19 m/uL (3.80-5.40); RDW 13.6 % (11.5-15.5); WBC 16.3 k/uL (3.8-10.6)
[2024-11-16] MEDS: LORazepam 1 MG TAB PO STA (09:37)
--- NOTE | 2024-11-16 09:47 | US ---
EXAMINATION TYPE: US transvaginal DATE OF EXAM: 11/16/2024 COMPARISON: NONE CLINICAL INDICATION: Female, 44 years old with history of vaginal bleeding menopause 1 year ago; Clot ting that started last night TECHNIQUE: Transvaginal (TV). Doppler imaging: Not performed; limited visualization of ovaries due to bowel gas, patient body habit us, and patient tolerance FINDINGS: Date of LMP: Over 1 year ago EXAM MEASUREMENTS: Uterus: 9.1 x 4.6 x 5.4 cm Endometrial Stripe: 0.4 cm Right Ovary: 2.5 x 1.4 x 1.4 cm Left Ovary: 2.4 x 1.9 x 2.0 cm 1. Uterus: Anteverted Multiple heterogenous areas, largest = 2.2 x 2.2 x 1.4 cm; Suggestive of ?mu ltifibrotic uterus; Multiple cystic areas seen throughout as well 2. Endometrium: wnl 3. Right Ovary: Limited visualization; WNL as visualized 4. Left Ovary: Limited visualization; WNL as visualized 5. Bilateral Adnexa: wnl 6. Posterior cul-de-sac: wnl IMPRESSION: 1. Normal endometrium. 2. Multiple heterogeneous masses within the uterus and largest of which is 2.2 cm. These most likely represent fibromas. 3. Limited evaluation of the ovaries due to body habitus and bowel contents. 4. No free fluid within the cul-de-sac. [facility], , 11/16/2024 9:45 AM
[2024-11-16 09:49] LABS: ALT 27 U/L (4-34); AST 23 U/L (14-36); African American GFR (CKD) >90 (>60 ml/min/1.73 sqM); Albumin 4.4 g/dL (3.5-5.0); Alkaline Phosphatase 97 U/L (38-126); Anion Gap 12 mmol/L; Appearance,Urine Cloudy (Clear); Bilirubin,Urine Negative (Negative); Blood Urea Nitrogen 24 mg/dL (7-17); Blood,Urine Large (Negative); Calcium 9.8 mg/dL (8.4-10.2); Carbon Dioxide 28 mmol/L (22-30); Chloride 98 mmol/L (98-107); Color,Urine Light Red; Glucose 110 mg/dL (74-99); Glucose,Urine (UA) Negative (Negative); Ketones,Urine Negative (Negative); Leukocyte Esterase,Urine Negative (Negative); Mucus,Urine Rare /hpf; Nitrite,Urine Negative (Negative); Non-African American GFR(CKD) >90 (>60 ml/min/1.73 sqM); PH, Urine 5.5 (5.0-8.0); Protein,Urine Trace (Negative); RBC,Urine >182 /hpf (0-5); Sodium 138 mmol/L (137-145); Specific Gravity,Urine 1.022 (1.001-1.035); Squamous Epithelial Cell,Urine 1 /hpf (0-4); Total Bilirubin 0.9 mg/dL (0.2-1.3); Total Protein 6.9 g/dL (6.3-8.2); Urobilinogen,Urine <2.0 mg/dL (<2.0); WBC,Urine 80 /hpf (0-5)
[2024-11-16 10:12] LABS: HCG,Qualitative Serum Not Detected
[2024-11-16 11:24] VITALS: BP 124/83; PULSE 100; RESP 18
== END 2024-11-16 11:29 | disposition home or self-care (01) ==
LOC: EC 08:12
DX: N93.8 Other specified abnormal uterine and vaginal bleeding (principal); D25.9 Leiomyoma of uterus, unspecified; Z88.5 Allergy status to narcotic agent; Z88.6 Allergy status to analgesic agent; Z91.013 Allergy to seafood
CPT/HCPCS: 36415; 76830; 80053; 81001; 84703; 85025; 87086; 99284

== ENCOUNTER → 2024-12-12 | Outpatient (CLI) | payer MEDICARE, OTHER ==
[2024-12-12 15:45] LABS: Basophils # (A) 0.1 k/uL (0-0.2); Basophils % (A) 1 %; Eosinophils # (A) 0.2 k/uL (0-0.7); Eosinophils % (A) 2 %; HCT 46.1 % (34.0-46.0); Lymphocytes # (A) 3.8 k/uL (1.0-4.8); Lymphocytes % (A) 26 %; MCH 28.9 pg (25.0-35.0); MCHC 32.6 g/dL (31.0-37.0); MCV 88.6 fL (80.0-100.0); Mean Platelet Volume 7.2; Monocytes # (A) 0.6 k/uL (0-1.0); Monocytes % (A) 4 %; Neutrophils # (A) 9.6 k/uL (1.3-7.7); Neutrophils % (A) 67 %; Platelet Count 287 k/uL (150-450); RDW 13.5 % (11.5-15.5); WBC 14.4 k/uL (3.8-10.6)
[2024-12-12 16:03] LABS: ALT 45 U/L (4-34); AST 22 U/L (14-36); African American GFR (CKD) >90 (>60 ml/min/1.73 sqM); Albumin 3.8 g/dL (3.5-5.0); Albumin/Globulin Ratio 1.5; Alkaline Phosphatase 85 U/L (38-126); Anion Gap 8 mmol/L; Blood Urea Nitrogen 18 mg/dL (7-17); Calcium 9.9 mg/dL (8.4-10.2); Carbon Dioxide 32 mmol/L (22-30); Chloride 99 mmol/L (98-107); Creatine Kinase 26 U/L (30-135); Globulin 2.6 g/dL; Glucose 90 mg/dL (74-99); Non-African American GFR(CKD) >90 (>60 ml/min/1.73 sqM); Potassium 4.2 mmol/L (3.5-5.1); Sodium 139 mmol/L (137-145); Total Bilirubin 0.6 mg/dL (0.2-1.3); Total Protein 6.4 g/dL (6.3-8.2)
[2024-12-13 03:50] LABS: Microalbumin Creatinine Ratio <5 mg/g Cr (0-30)
[2024-12-13 03:53] LABS: % Iron Saturation 22.86 (12.00-45.00); Chol/HDL Ratio 3.55 Ratio; Iron 96 UG/DL (50-170); LDL Cholesterol,Calculated 58.4 mg/dL (0.0-131.0); Total Iron Binding Capacity 420 UG/DL (228-460)
== END | disposition home or self-care (01) ==
LOC: LABWHC1 14:43
PROVIDERS: ATTEND Family Medicine
DX: E11.65 Type 2 diabetes mellitus with hyperglycemia (principal); E78.5 Hyperlipidemia, unspecified; M79.7 Fibromyalgia; D64.9 Anemia, unspecified; J45.30 Mild persistent asthma, uncomplicated; R06.02 Shortness of breath
CPT/HCPCS: 36415; 80053; 80061; 82043; 82550; 82552; 82570; 82607; 83036; 83540; 83550; 84443; 84484; 85025; 85379

== ENCOUNTER 2024-12-17 13:35 | Emergency (ER) | payer MEDICARE, OTHER ==
[2024-12-17 13:56] VITALS: RESP 20; TEMP 98.1
--- NOTE | 2024-12-17 14:51 | ED ---
SOB HPI - General Chief Complaint: Shortness of Breath Stated Complaint: abn labs Time Seen by Provider: 12/17/24 14:49 Source: patient, RN notes reviewed Mode of arrival: ambulatory Limitations: no limitations - History of Present Illness Initial Comments: 44-year-old female with history of COPD, asthma, diabetes, hypertension sent by PCP Dr. Fuentes for elevated D-dimer. Patient states she has been experiencing shortness of breath for 1.5 weeks associated chest tightness. States she was diagnosed with the flu and was recently started on prednisone, albuterol, Singulair, and doxycycline prescribed by PCP 4 days ago. She received a call from Dr. Fuentes yesterday instructing her to come to the ER with CT scan of chest to rule out blood clot however patient states she was too short of breath and weak to come yesterday. Denies blood thinners. - Related Data Home Medications Medication Instructions Recorded Confirmed Brexpiprazole [Rexulti] 0.5 mg PO DAILY 11/09/23 09/01/24 Losartan [Cozaar] 50 mg PO DAILY 11/09/23 09/01/24 Montelukast [Singulair] 10 mg PO HS 11/09/23 09/01/24 Pantoprazole Sodium [Protonix] 20 mg PO DAILY 11/09/23 09/01/24 Insulin Glargine,Hum.rec.anlog 40 units SQ DAILY 09/01/24 09/01/24 [Lantus Solostar Pen] Lumateperone Tosylate [Caplyta] 42 mg PO DAILY 09/01/24 09/01/24 Semaglutide [Ozempic] 1 mg SQ TH 09/01/24 09/01/24 hydrOXYzine pamoate [Vistaril] 50 mg PO QID 09/01/24 09/01/24 oxyCODONE-APAP 10-325MG [Percocet 1 tab PO Q8HR PRN 09/01/24 09/01/24 10-325 mg] Albuterol Nebulized [Ventolin 2.5 mg INHALATION RT-Q4H PRN 12/17/24 12/17/24 Nebulized] Albuterol Sulfate [Proair 2 puff INHALATION RT-Q4H PRN 12/17/24 12/17/24 Respiclick] Aspirin EC [Ecotrin Low Dose] 81 mg PO DAILY 12/17/24 12/17/24 Atorvastatin [Lipitor] 40 mg PO DAILY 12/17/24 12/17/24 Celecoxib [Celebrex] 400 mg PO DAILY PRN 12/17/24 12/17/24 Cetirizine HCl [Zyrtec] 10 mg PO DAILY 12/17/24 12/17/24 DULoxetine HCL [Cymbalta] 60 mg PO DAILY 12/17/24 12/17/24 Ergocalciferol (Vitamin D2) 1,250 mcg PO WE 12/17/24 12/17/24 [Drisdol (50,000 Iu)] Fluticasone/Umeclidin/Vilanter 1 puff INHALATION RT-DAILY 12/17/24 12/17/24 [Trelegy Ellipta 100-62.5-25] Pregabalin [Lyrica] 100 mg PO TID 12/17/24 12/17/24 carvediloL [Coreg] 6.25 mg PO BID 12/17/24 12/17/24 Previous Rx's Medication Instructions Recorded metFORMIN HCL [Glucophage] 500 mg PO BID #60 tab 11/14/23 Allergies Allergy/AdvReac Type Severity Reaction Status Date / Time shellfish derived Allergy Rash/Hives Verified 12/17/24 16:33 tramadol Allergy Anaphylaxis Verified 12/17/24 16:33 naproxen AdvReac Rash/Hives Verified 12/17/24 16:33 Review of Systems ROS Statement: Those systems with pertinent positive or pertinent negative responses have been documented in the HPI. ROS Other: All systems not noted in ROS Statement are negative. Past Medical History Past Medical History: Asthma, COPD, Diabetes Mellitus, Fibromyalgia, Hypertension, Rheumatoid Arthritis (RA) Additional Past Medical History / Comment(s): obesity. ABD PAIN History of Any Multi-Drug Resistant Organisms: None Reported Past Surgical History: No Surgical Hx Reported Additional Past Surgical History / Comment(s): CYST REMOVED FROM HEAD. COLONOSCOPY Past Anesthesia/Blood Transfusion Reactions: No Reported Reaction Past Psychological History: Bipolar Smoking Status: Never smoker Past Alcohol Use History: None Reported Past Drug Use History: Marijuana - Past Family History Mother Family Medical History: Cancer General Exam Limitations: no limitations General appearance: alert, in no apparent distress Head exam: Present: atraumatic, normocephalic, normal inspection Eye exam: Present: normal appearance, PERRL, EOMI. Absent: scleral icterus, conjunctival injection, periorbital swelling ENT exam: Present: normal exam, mucous membranes moist Respiratory exam: Present: normal lung sounds bilaterally. Absent: respiratory distress, wheezes, rales, rhonchi, stridor Cardiovascular Exam: Present: regular rate, normal rhythm, normal heart sounds. Absent: systolic murmur, diastolic murmur, rubs, gallop, clicks GI/Abdominal exam: Present: soft, normal bowel sounds. Absent: distended, tenderness, guarding, rebound, rigid Neurological exam: Present: alert, oriented X3 Psychiatric exam: Present: normal affect, normal mood Skin exam: Present: warm, dry, intact, normal color. Absent: rash Course Vital Signs 12/17/24 12/17/24 12/17/24 13:46 15:58 16:06 Temperature 98.1 F Pulse Rate 98 91 92 Respiratory 20 Rate Blood Pressure 163/96 O2 Sat by Pulse 92 L Oximetry Medical Decision Making - Medical Decision Making Was pt. sent in by a medical professional or institution (, PA, SURG TECH, urgent care, hospital, or [facility]...) When possible be specific @ -Sent by Dr. Fuentes for CT angio chest Did you speak to anyone other than the patient for history (EMS, parent, family, police, friend...)? What history was obtained from this source @ -No Did you review nursing and triage notes (agree or disagree)? Why? @ -I reviewed and agree with nursing and triage notes Were old charts reviewed (outside hosp., previous admission, EMS record, old EKG, old radiological studies, urgent care reports/EKG's, [facility] records)? Report findings @ -No old charts were reviewed Differential Diagnosis (chest pain, altered mental status, abdominal pain women, abdominal pain men, vaginal bleeding, weakness, fever, dyspnea, syncope, headache, dizziness, GI bleed, back pain, seizure, CVA, palpatations, mental health, musculoskeletal)? @ -Differential Dyspnea: Coronary syndrome, arrhythmia, tamponade, asthma, COPD, pulmonary embolism, pneumonia, pneumothorax, pulmonary effusion, anaphylaxis, diabetic ketoacidosis, flailed chest, pulmonary contusion, diaphragmatic rupture, anemia, neuromuscular, this is not meant to be an all-inclusive list. EKG interpreted by me (3pts min.). @ -As above X-rays interpreted by me (1pt min.). @ -None done CT interpreted by me (1pt min.). @ -CTA chest reveals no evidence of large PE in main pulmonary artery, right or left pulmonary artery or segmental branches, secondary to limitations of this exam due to body habitus, small segmental pulmonary emboli cannot be excluded, no definitive acute cardiopulmonary disease U/S interpreted by me (1pt. min.). @ -None done What testing was considered but not performed or refused? (CT, X-rays, U/S, labs)? Why? @ -None What meds were considered but not given or refused? Why? @ -None Did you discuss the management of the patient with other professionals (professionals i.e. , PA, SURG TECH, lab, RT, psych nurse, manager social, employment instructional associate, teacher, medical corps officer, supportive employment case manager)? Give summary @ -No Was smoking cessation discussed for >3mins.? @ -No Was critical care preformed (if so, how long)? @ -No Were there social determinants of health that impacted care today? How? (Homelessness, low income, unemployed, alcoholism, drug addiction, transp ortation, low edu. Level, literacy, decrease access to med. care, retirement, rehab)? @ -No Was there de-escalation of care discussed even if they declined (Discuss DNR or withdrawal of care, Hospice)? DNR status @ -No What co-morbidities impacted this encounter? (DM, HTN, Smoking, COPD, CAD, Cancer, CVA, ARF, Chemo, Hep., AIDS, mental health diagnosis, sleep apnea, morbid obesity)? @ -None Was patient admitted / discharged? Hospital course, mention meds given and route, prescriptions, significant lab abnormalities, going to OR and other pertinent info. @ -Patient left AGAINST MEDICAL ADVICE. This is a 44-year-old female sent by Dr. Fuentes for CTA chest due to elevated D-dimer. Patient has been experiencing shortness of breath for 1.5 weeks. Patient is hypertensive at 163/96, heart rate 98 bpm, afebrile, satting 92% on room air. Patient has history of COPD therefore above 88% is acceptable. Lungs clear to auscultation bilaterally. Lab work remarkable for leukocytosis of 15.1 increased from 14.4 days ago however likely due to oral steroids. EKG reveals normal sinus rhythm with no ST changes. CTA chest reveals no evidence of large PE in main pulmonary artery, right or left pulmonary artery or segmental branches, secondary to limitations of this exam due to body habitus small segmental PE cannot be excluded. Discussed results with patient. I recommended admission with initiation of IV heparin drip and VQ scan to further rule out pulmonary embolism as small pulmonary embolism cannot be excluded at this time to limitations of CTA. Risks of PE discussed in detail with patient including . Appropriate return precautions and follow-up care discussed. Patient verbalizes understanding and leaves AGAINST MEDICAL ADVICE. Case was discussed with my ED attending Dr. Cummings. Undiagnosed new problem with uncertain prognosis? @ -No Drug Therapy requiring intensive monitoring for toxicity (Heparin, Nitro, Insulin, Cardizem)? @ -No Were any procedures done? @ -No Diagnosis/symptom? @ -Shortness of breath Acute, or Chronic, or Acute on Chronic? @ -Acute Uncomplicated (without systemic symptoms) or Complicated (systemic symptoms)? @ -Complicated Side effects of treatment? @ -No Exacerbation, Progression, or Severe Exacerbation? @ -No Poses a threat to life or bodily function? How? (Chest pain, [place], [place], pneumonia, PE, COPD, DKA, ARF, appy, cholecystitis, CVA, Diverticulitis, Homicidal, Suicidal, threat to staff... and all critical care pts) @ -Yes possibly - Lab Data Result diagrams: 12/17/24 15:03 12/17/24 15:03 Lab Results 12/17/24 12/17/24 12/17/24 Range/Units 14:58 15:03 15:03 WBC 15.1 H (3.8-10.6) k/uL RBC 4.88 (3.80-5.40) m/uL Hgb 13.5 (11.4-16.0) gm/dL Hct 42.8 (34.0-46.0) % MCV 87.8 (80.0-100.0) fL MCH 27.8 (25.0-35.0) pg MCHC 31.6 (31.0-37.0) g/dL RDW 13.7 (11.5-15.5) % Plt Count 283 (150-450) k/uL MPV 7.3 Neutrophils % 71 % Lymphocytes % 23 % Monocytes % 4 % Eosinophils % 2 % Basophils % 0 % Neutrophils # 10.7 H (1.3-7.7) k/uL Lymphocytes # 3.4 (1.0-4.8) k/uL Monocytes # 0.5 (0-1.0) k/uL Eosinophils # 0.2 (0-0.7) k/uL Basophils # 0.1 (0-0.2) k/uL PT 10.8 (10.0-12.5) sec INR 1.0 (<1.2) APTT 19.9 L (22.0-30.0) sec Sodium (137-145) mmol/L Potassium (3.5-5.1) mmol/L Chloride (98-107) mmol/L Carbon Dioxide (22-30) mmol/L Anion Gap mmol/L BUN (7-17) mg/dL Creatinine (0.52-1.04) mg/dL Est GFR (CKD-EPI)AfAm (>60 ml/min/1.73 sqM) Est GFR (CKD-EPI)NonAf (>60 ml/min/1.73 sqM) Glucose (74-99) mg/dL Calcium (8.4-10.2) mg/dL Total Bilirubin (0.2-1.3) mg/dL AST (14-36) U/L ALT (4-34) U/L Alkaline Phosphatase (38-126) U/L Troponin I (0.000-0.034) ng/mL Total Protein (6.3-8.2) g/dL Albumin (3.5-5.0) g/dL Influenza Type A (PCR) Not Detected (Not Detectd) Influenza Type B (PCR) Not Detected (Not Detectd) RSV (PCR) Not Detected (Not Detectd) SARS-CoV-2 (PCR) Not Detected (Not Detectd) 12/17/24 12/17/24 Range/Units 15:03 15:03 WBC (3.8-10.6) k/uL RBC (3.80-5.40) m/uL Hgb (11.4-16.0) gm/dL Hct (34.0-46.0) % MCV (80.0-100.0) fL MCH (25.0-35.0) pg MCHC (31.0-37.0) g/dL RDW (11.5-15.5) % Plt Count (150-450) k/uL MPV Neutrophils % % Lymphocytes % % Monocytes % % Eosinophils % % Basophils % % Neutrophils # (1.3-7.7) k/uL Lymphocytes # (1.0-4.8) k/uL Monocytes # (0-1.0) k/uL Eosinophils # (0-0.7) k/uL Basophils # (0-0.2) k/uL PT (10.0-12.5) sec INR (<1.2) APTT (22.0-30.0) sec Sodium 137 (137-145) mmol/L Potassium 4.2 (3.5-5.1) mmol/L Chloride 101 (98-107) mmol/L Carbon Dioxide 31 H (22-30) mmol/L Anion Gap 5 mmol/L BUN 26 H (7-17) mg/dL Creatinine 0.63 (0.52-1.04) mg/dL Est GFR (CKD-EPI)AfAm >90 (>60 ml/min/1.73 sqM) Est GFR (CKD-EPI)NonAf >90 (>60 ml/min/1.73 sqM) Glucose 143 H (74-99) mg/dL Calcium 9.5 (8.4-10.2) mg/dL Total Bilirubin 0.9 (0.2-1.3) mg/dL AST 20 (14-36) U/L ALT 32 (4-34) U/L Alkaline Phosphatase 94 (38-126) U/L Troponin I <0.012 (0.000-0.034) ng/mL Total Protein 6.1 L (6.3-8.2) g/dL Albumin 3.7 (3.5-5.0) g/dL Influenza Type A (PCR) (Not Detectd) Influenza Type B (PCR) (Not Detectd) RSV (PCR) (Not Detectd) SARS-CoV-2 (PCR) (Not Detectd) - EKG Data -: EKG Interpreted by [facility] EKG Comments: EKG reveals normal sinus rhythm with inverted T waves in lead V2. Ventricular rate 94 bpm, [place] interval 189, QRS duration 82, QT/QTc 340/392 Disposition Clinical Impression: Shortness of breath Disposition: LEFT AGAINST MEDICAL ADVICE Condition: Undetermined Additional Instructions: Please return to the Emergency Department if symptoms worsen or any other concerns. Referrals: Candy Fuentes MD [Primary Care Provider] - 1-2 days Time of Disposition: 16:33
[2024-12-17 15:17] LABS: Basophils # (A) 0.1 k/uL (0-0.2); Basophils % (A) 0 %; Eosinophils # (A) 0.2 k/uL (0-0.7); Eosinophils % (A) 2 %; HCT 42.8 % (34.0-46.0); HGB 13.5 gm/dL (11.4-16.0); Lymphocytes # (A) 3.4 k/uL (1.0-4.8); Lymphocytes % (A) 23 %; MCH 27.8 pg (25.0-35.0); MCHC 31.6 g/dL (31.0-37.0); MCV 87.8 fL (80.0-100.0); Mean Platelet Volume 7.3; Monocytes # (A) 0.5 k/uL (0-1.0); Monocytes % (A) 4 %; Neutrophils # (A) 10.7 k/uL (1.3-7.7); Neutrophils % (A) 71 %; Platelet Count 283 k/uL (150-450); RBC 4.88 m/uL (3.80-5.40); RDW 13.7 % (11.5-15.5); WBC 15.1 k/uL (3.8-10.6)
[2024-12-17 15:23] LABS: ALT 32 U/L (4-34); AST 20 U/L (14-36); African American GFR (CKD) >90 (>60 ml/min/1.73 sqM); Albumin 3.7 g/dL (3.5-5.0); Alkaline Phosphatase 94 U/L (38-126); Anion Gap 5 mmol/L; Blood Urea Nitrogen 26 mg/dL (7-17); Calcium 9.5 mg/dL (8.4-10.2); Carbon Dioxide 31 mmol/L (22-30); Chloride 101 mmol/L (98-107); Glucose 143 mg/dL (74-99); Non-African American GFR(CKD) >90 (>60 ml/min/1.73 sqM); Potassium 4.2 mmol/L (3.5-5.1); Sodium 137 mmol/L (137-145); Total Bilirubin 0.9 mg/dL (0.2-1.3); Total Protein 6.1 g/dL (6.3-8.2)
[2024-12-17 15:30] LABS: Prothrombin Time 10.8 sec (10.0-12.5)
[2024-12-17 15:44] LABS: Partial Thromboplastin Time 19.9 sec (22.0-30.0)
[2024-12-17 15:47] LABS: Influenza A Not Detected (Not Detectd); Influenza B Not Detected (Not Detectd); RSV Not Detected (Not Detectd)
[2024-12-17] MEDS: IPRATROPIUM-ALBUTEROL 3 ML NEB INHALATION STA (15:56)
--- NOTE | 2024-12-17 15:56 | CT ---
EXAMINATION TYPE: CT angio chest DATE OF EXAM: 12/17/2024 COMPARISON: 11/09/2023 CLINICAL INDICATION: Female, 44 years old with history of shortness of breath, elevated D-dimer; PHH, shortness of breath, elevated D-dimer TECHNIQUE: CTA scan of the thorax is performed with IV Contrast, patient injected with 100ml mL of Isovue 370, p ulmonary embolism protocol. MIP images are created and reviewed. The post processing was performed. CT DLP: [address] CTDI: mGy Automated exposure control for dose reduction was used. FINDINGS: Examination limited by the patient's body habitus. LUNGS: The lungs are grossly clear, there is no concerning parenchymal mass or nodule identified. T here is no pleural effusion or pneumothorax seen. The tracheobronchial tree is patent. MEDIASTINUM: There is suboptimal opacification of the pulmonary arterial circulation. There are no fi lling defects within the main pulmonary arteries or segmental branches. Small pulmonary emboli in the subsegmental branches cannot be excluded given the limitations of this exam. There are no greater th an 1 cm hilar or mediastinal lymph nodes. No pericardial effusion is seen. OTHER: No additional significant abnormality is seen. IMPRESSION: 1. NO EVIDENCE OF LARGE PULMONARY EMBOLI IN THE MAIN PULMONARY ARTERY, RIGHT OR LEFT PULMONARY ARTERY OR SEGMENTAL BRANCHES. SECONDARY TO LIMITATIONS OF THIS EXAM DESCRIBED ABOVE SMALL SUBSEGMENTAL P ULMONARY LINE CANNOT BE EXCLUDED. 2. NO DEFINITE ACUTE CARDIOPULMONARY DISEASE. [facility], , 12/17/2024 3:54 PM
[2024-12-17 16:53] VITALS: BP 161/90; PULSE 97
== END 2024-12-17 16:53 | disposition left against medical advice (07) ==
LOC: EC 13:35
DX: R06.02 Shortness of breath (principal); E66.9 Obesity, unspecified; Z53.29 Procedure and treatment not carried out because of patient's decision for other reasons; Z88.5 Allergy status to narcotic agent; Z88.6 Allergy status to analgesic agent; Z91.013 Allergy to seafood; Z68.43 Body mass index [BMI] 50.0-59.9, adult
CPT/HCPCS: 36415; 94640; 93005; 80053; 84484; 85025; 85610; 85730; 87636; 71275; 99285; Q9967

== ENCOUNTER 2025-01-02 16:33 | Emergency (ER) | payer MEDICARE, OTHER ==
--- NOTE | 2025-01-02 17:35 | ED ---
SOB HPI - General Source: patient, RN notes reviewed Mode of arrival: ambulatory Limitations: no limitations <Ed Avila - Last Filed: 01/02/25 17:33> <Kyree Becerra - Last Filed: 01/02/25 21:36> - General Chief Complaint: Shortness of Breath Stated Complaint: SOB, back pain Time Seen by Provider: 01/02/25 16:50 - History of Present Illness Initial Comments: Quick note: This is a 44-year-old female with history of CAD, DM, COPD and HTN presenting with shortness of breath. Patient states she was diagnosed with the flu 3 weeks ago with ongoing shortness of breath since that time patient states difficulty breathing has worsened since last night when she "stopped" breathing 3 separate times. States she has home O2 and CPAP but has not used it while she has had the flu. Also endorses upper chest pain/pressure radiates to left axillary region. Endorses hearing crackles in throat as well. (Ed Avila) 34-year-old female presenting for evaluation of dyspnea. Patient has history of asthma and has had recent influenza over the past 3 weeks. She endorses cough. She states that flulike illness has resolved but she has had some persistent shortness of breath. No central chest pain. No vomiting or diaphoresis. (Kyree Becerra) - Related Data Home Medications Medication Instructions Recorded Confirmed Brexpiprazole [Rexulti] 0.5 mg PO DAILY 11/09/23 12/17/24 Losartan [Cozaar] 50 mg PO DAILY 11/09/23 12/17/24 Montelukast [Singulair] 10 mg PO HS 11/09/23 12/17/24 Pantoprazole Sodium [Protonix] 20 mg PO DAILY 11/09/23 12/17/24 Insulin Glargine,Hum.rec.anlog 40 units SQ DAILY 09/01/24 12/17/24 [Lantus Solostar Pen] Lumateperone Tosylate [Caplyta] 42 mg PO DAILY 09/01/24 12/17/24 Semaglutide [Ozempic] 1 mg SQ WE 09/01/24 12/17/24 hydrOXYzine pamoate [Vistaril] 50 mg PO QID PRN 09/01/24 12/17/24 oxyCODONE-APAP 10-325MG [Percocet 1 tab PO TID 09/01/24 12/17/24 10-325 mg] Albuterol Nebulized [Ventolin 2.5 mg INHALATION RT-Q4H PRN 12/17/24 12/17/24 Nebulized] Albuterol Sulfate [Proair 2 puff INHALATION RT-Q4H PRN 12/17/24 12/17/24 Respiclick] Aspirin EC [Ecotrin Low Dose] 81 mg PO DAILY 12/17/24 12/17/24 Atorvastatin [Lipitor] 40 mg PO DAILY 12/17/24 12/17/24 Celecoxib [Celebrex] 400 mg PO DAILY PRN 12/17/24 12/17/24 Cetirizine HCl [Zyrtec] 10 mg PO DAILY 12/17/24 12/17/24 DULoxetine HCL [Cymbalta] 60 mg PO DAILY 12/17/24 12/17/24 Ergocalciferol (Vitamin D2) 1,250 mcg PO WE 12/17/24 12/17/24 [Drisdol (50,000 Iu)] Fluticasone/Umeclidin/Vilanter 1 puff INHALATION RT-DAILY 12/17/24 12/17/24 [Trelegy Ellipta 100-62.5-25] Pregabalin [Lyrica] 100 mg PO TID 12/17/24 12/17/24 carvediloL [Coreg] 6.25 mg PO BID 12/17/24 12/17/24 Previous Rx's Medication Instructions Recorded metFORMIN HCL [Glucophage] 500 mg PO BID #60 tab 11/14/23 Albuterol Inhaler [Ventolin Hfa 1 - 2 puff INHALATION Q4HR PRN #1 01/02/25 Inhaler] each predniSONE [Deltasone] 20 mg PO BID 5 Days #10 tab 01/02/25 Allergies Allergy/AdvReac Type Severity Reaction Status Date / Time shellfish derived Allergy Rash/Hives Verified 12/17/24 16:33 tramadol Allergy Anaphylaxis Verified 12/17/24 16:33 naproxen AdvReac Rash/Hives Verified 12/17/24 16:33 Review of Systems ROS Other: All systems not noted in ROS Statement are negative. <Ed Avila - Last Filed: 01/02/25 17:33> ROS Other: All systems not noted in ROS Statement are negative. <Kyree Becerra - Last Filed: 01/02/25 21:36> ROS Statement: Those systems with pertinent positive or pertinent negative responses have been documented in the HPI. Past Medical History Past Medical History: Asthma, Coronary Artery Disease (CAD), COPD, Diabetes Mellitus, Fibromyalgia, Hypertension, Rheumatoid Arthritis (RA) Additional Past Medical History / Comment(s): obesity. ABD PAIN History of Any Multi-Drug Resistant Organisms: None Reported Past Surgical History: No Surgical Hx Reported Additional Past Surgical History / Comment(s): CYST REMOVED FROM HEAD. COLONOSCOPY Past Anesthesia/Blood Transfusion Reactions: No Reported Reaction Past Psychological History: Bipolar Smoking Status: Never smoker Past Alcohol Use History: None Reported Past Drug Use History: Marijuana - Past Family History Mother Family Medical History: Cancer <Ed Avila - Last Filed: 01/02/25 17:33> General Exam Limitations: no limitations <Ed Avila - Last Filed: 01/02/25 17:33> General appearance: alert, in no apparent distress Head exam: Present: atraumatic, normocephalic Eye exam: Present: normal appearance, PERRL ENT exam: Present: normal exam Neck exam: Present: normal inspection. Absent: tenderness Respiratory exam: Present: wheezes, rhonchi. Absent: respiratory distress Cardiovascular Exam: Present: regular rate, normal rhythm GI/Abdominal exam: Present: soft. Absent: distended, tenderness, guarding Extremities exam: Present: normal inspection, normal capillary refill. Absent: pedal edema, calf tenderness Neurological exam: Present: alert, oriented X3, CN II-XII intact. Absent: motor sensory deficit Psychiatric exam: Present: normal affect, normal mood Skin exam: Present: warm, dry, intact <Kyree Becerra - Last Filed: 01/02/25 21:36> - General Exam Comments Initial Comments: Visual Physical Exam Vital signs reviewed General: Well-appearing, nontoxic, no acute distress. Head: Normocephalic, atraumatic Eyes: PERRLA, EOMI ENT: Airway patent Chest: Nonlabored breathing Skin: No visual rash, normal skin tone Neuro: Alert and oriented 3 Musculoskeletal: No gross abnormalities (Ed Avila) Course Vital Signs 01/02/25 01/02/25 16:37 20:21 Temperature 97.9 F Pulse Rate 110 H 92 Respiratory 18 18 Rate Blood Pressure 108/75 122/82 O2 Sat by Pulse 95 93 L Oximetry Medical Decision Making <Ed Avila - Last Filed: 01/02/25 17:33> - Lab Data Result diagrams: 01/02/25 18:42 01/02/25 18:42 <Kyree Becerra - Last Filed: 01/02/25 21:36> - Medical Decision Making I completed the quick note portion of this chart signed DEANN Anne (Ed Avila) Was pt. sent in by a medical professional or institution ([facility], [facility], urgent care, hospital, or long term...) When possible be specific @ -No Did you speak to anyone other than the patient for history (EMS, parent, family, police, friend...)? What history was obtained from this source @ -No Did you review nursing and triage notes (agree or disagree)? Why? @ -I reviewed and agree with nursing and triage notes Were old charts reviewed (outside hosp., previous admission, EMS record, old EKG, old radiological studies, urgent care reports/EKG's, long term records)? Report findings @ -No old charts were reviewed Differential Dyspnea: Coronary syndrome, arrhythmia, tamponade, asthma, COPD, pulmonary embolism, pneumonia, pneumothorax, pulmonary effusion, anaphylaxis, diabetic ketoacidosis, flailed chest, pulmonary contusion, diaphragmatic rupture, anemia, neuromuscular, this is not meant to be an all-inclusive list. EKG interpreted by me (3pts min.). @ -Sinus rhythm rate of 81, SD interval 187, QRS duration 80, QTc [address] s egment elevation X-rays interpreted by me (1pt min.). @ -[Chest x-ray is negative for pneumothorax, no focal pneumonia CT interpreted by me (1pt min.). @ -None done U/S interpreted by me (1pt. min.). @ -None done What testing was considered but not performed or refused? (CT, X-rays, U/S, labs)? Why? @ -None What meds were considered but not given or refused? Why? @ -None Did you discuss the management of the patient with other professionals (professionals i.e. , PA, [employer], lab, RT, psych nurse, child welfare social worker, apparatus engineering technologist, teacher, sailing officer, rn case manager hospice)? Give summary @ -No Was smoking cessation discussed for >3mins.? @ -No Was critical care preformed (if so, how long)? @ -No Were there social determinants of health that impacted care today? How? (Homelessness, low income, unemployed, alcoholism, drug addiction, transportation, low edu. Level, literacy, decrease access to med. care, assisted, rehab)? @ -No Was there de-escalation of care discussed even if they declined (Discuss DNR or withdrawal of care, Hospice)? DNR status @ -No What co-morbidities impacted this encounter? (DM, HTN, Smoking, COPD, CAD, Cancer, CVA, ARF, Chemo, Hep., AIDS, mental health diagnosis, sleep apnea, morbid obesity)? @ -COPD, obesity Was patient admitted / discharged? Hospital course, mention meds given and route, prescriptions, significant lab abnormalities, going to OR and other pertinent info. @ -44-year-old female history of asthma presenting with persistent dyspnea. Patient is morbidly obese and has had recent flulike illness. Patient afebrile. She has diminished breath sounds with scattered wheezing and rhonchi. Given IV steroids in the emergency department. I did obtain a complete workup on this patient including CBC, CMP, D-dimer and troponin. D-dimer is negative, tropo day is negative, EKG is sinus without ST segment changes. Patient will be treated for asthma as well as encouraged to follow closely with her primary care provider. Return parameters discussed at length. Undiagnosed new problem with uncertain prognosis? @ -No Drug Therapy requiring intensive monitoring for toxicity (Heparin, Nitro, Insulin, Cardizem)? @ -No Were any procedures done? @ -No Diagnosis/symptom? @ -Asthma Acute, or Chronic, or Acute on Chronic? @ -Acute Uncomplicated (without systemic symptoms) or Complicated (systemic symptoms)? @ -Default Side effects of treatment? @ -No Exacerbation, Progression, or Severe Exacerbation? @ -No Poses a threat to life or bodily function? How? (Chest pain, USA, CA, pneumonia, PE, COPD, DKA, ARF, appy, cholecystitis, CVA, Diverticulitis, Homicidal, Suicidal, threat to staff... and all critical care pts) @Low risk at this time (Kyree Becerra) - Lab Data Lab Results 01/02/25 01/02/25 01/02/25 Range/Units 18:42 18:42 18:42 WBC 11.7 H (3.8-10.6) k/uL RBC 5.02 (3.80-5.40) m/uL Hgb 13.7 (11.4-16.0) gm/dL Hct 44.4 (34.0-46.0) % MCV 88.4 (80.0-100.0) fL MCH 27.3 (25.0-35.0) pg MCHC 30.8 L (31.0-37.0) g/dL RDW 14.2 (11.5-15.5) % Plt Count 276 (150-450) k/uL MPV 7.1 Neutrophils % 60 % Lymphocytes % 31 % Monocytes % 3 % Eosinophils % 3 % Basophils % 0 % Neutrophils # 7.1 (1.3-7.7) k/uL Lymphocytes # 3.6 (1.0-4.8) k/uL Monocytes # 0.4 (0-1.0) k/uL Eosinophils # 0.4 (0-0.7) k/uL Basophils # 0.1 (0-0.2) k/uL PT 10.1 (10.0-12.5) sec INR 0.9 (<1.2) APTT 20.6 L (22.0-30.0) sec D-Dimer 0.32 (<0.60) mg/L FEU Sodium 139 (137-145) mmol/L Potassium 4.2 (3.5-5.1) mmol/L Chloride 101 (98-107) mmol/L Carbon Dioxide 27 (22-30) mmol/L Anion Gap 11 mmol/L BUN 16 (7-17) mg/dL Creatinine 0.65 (0.52-1.04) mg/dL Est GFR (CKD-EPI)AfAm >90 (>60 ml/min/1.73 sqM) Est GFR (CKD-EPI)NonAf >90 (>60 ml/min/1.73 sqM) Glucose 102 H (74-99) mg/dL Lactic Ac Sepsis Rflx Plasma Lactic Acid Mac (0.7-2.0) mmol/L Calcium 9.5 (8.4-10.2) mg/dL Magnesium 1.6 (1.6-2.3) mg/dL Total Bilirubin 0.6 (0.2-1.3) mg/dL AST 22 (14-36) U/L ALT 27 (4-34) U/L Alkaline Phosphatase 88 (38-126) U/L Troponin I (0.000-0.034) ng/mL NT-Pro-B Natriuret Pep 73 pg/mL Total Protein 6.3 (6.3-8.2) g/dL Albumin 3.9 (3.5-5.0) g/dL Influenza Type A (PCR) (Not Detectd) Influenza Type B (PCR) (Not Detectd) RSV (PCR) (Not Detectd) SARS-CoV-2 (PCR) (Not Detectd) 01/02/25 01/02/25 01/02/25 Range/Units 18:42 18:42 18:42 WBC (3.8-10.6) k/uL RBC (3.80-5.40) m/uL Hgb (11.4-16.0) gm/dL Hct (34.0-46.0) % MCV (80.0-100.0) fL MCH (25.0-35.0) pg MCHC (31.0-37.0) g/dL RDW (11.5-15.5) % Plt Count (150-450) k/uL MPV Neutrophils % % Lymphocytes % % Monocytes % % Eosinophils % % Basophils % % Neutrophils # (1.3-7.7) k/uL Lymphocytes # (1.0-4.8) k/uL Monocytes # (0-1.0) k/uL Eosinophils # (0-0.7) k/uL Basophils # (0-0.2) k/uL PT (10.0-12.5) sec INR (<1.2) APTT (22.0-30.0) sec D-Dimer (<0.60) mg/L FEU Sodium (137-145) mmol/L Potassium (3.5-5.1) mmol/L Chloride (98-107) mmol/L Carbon Dioxide (22-30) mmol/L Anion Gap mmol/L BUN (7-17) mg/dL Creatinine (0.52-1.04) mg/dL Est GFR (CKD-EPI)AfAm (>60 ml/min/1.73 sqM) Est GFR (CKD-EPI)NonAf (>60 ml/min/1.73 sqM) Glucose (74-99) mg/dL Lactic Ac Sepsis Rflx Plasma Lactic Acid Mac 2.9 H* (0.7-2.0) mmol/L Calcium (8.4-10.2) mg/dL Magnesium (1.6-2.3) mg/dL Total Bilirubin (0.2-1.3) mg/dL AST (14-36) U/L ALT (4-34) U/L Alkaline Phosphatase (38-126) U/L Troponin I <0.012 (0.000-0.034) ng/mL NT-Pro-B Natriuret Pep pg/mL Total Protein (6.3-8.2) g/dL Albumin (3.5-5.0) g/dL Influenza Type A (PCR) Not Detected (Not Detectd) Influenza Type B (PCR) Not Detected (Not Detectd) RSV (PCR) Not Detected (Not Detectd) SARS-CoV-2 (PCR) Not Detected (Not Detectd) 01/02/25 Range/Units 19:14 WBC (3.8-10.6) k/uL RBC (3.80-5.40) m/uL Hgb (11.4-16.0) gm/dL Hct (34.0-46.0) % MCV (80.0-100.0) fL MCH (25.0-35.0) pg MCHC (31.0-37.0) g/dL RDW (11.5-15.5) % Plt Count (150-450) k/uL MPV Neutrophils % % Lymphocytes % % Monocytes % % Eosinophils % % Basophils % % Neutrophils # (1.3-7.7) k/uL Lymphocytes # (1.0-4.8) k/uL Monocytes # (0-1.0) k/uL Eosinophils # (0-0.7) k/uL Basophils # (0-0.2) k/uL PT (10.0-12.5) sec INR (<1.2) APTT (22.0-30.0) sec D-Dimer (<0.60) mg/L FEU Sodium (137-145) mmol/L Potassium (3.5-5.1) mmol/L Chloride (98-107) mmol/L Carbon Dioxide (22-30) mmol/L Anion Gap mmol/L BUN (7-17) mg/dL Creatinine (0.52-1.04) mg/dL Est GFR (CKD-EPI)AfAm (>60 ml/min/1.73 sqM) Est GFR (CKD-EPI)NonAf (>60 ml/min/1.73 sqM) Glucose (74-99) mg/dL Lactic Ac Sepsis Rflx Y Plasma Lactic Acid Mac (0.7-2.0) mmol/L Calcium (8.4-10.2) mg/dL Magnesium (1.6-2.3) mg/dL Total Bilirubin (0.2-1.3) mg/dL AST (14-36) U/L ALT (4-34) U/L Alkaline Phosphatase (38-126) U/L Troponin I (0.000-0.034) ng/mL NT-Pro-B Natriuret Pep pg/mL Total Protein (6.3-8.2) g/dL Albumin (3.5-5.0) g/dL Influenza Type A (PCR) (Not Detectd) Influenza Type B (PCR) (Not Detectd) RSV (PCR) (Not Detectd) SARS-CoV-2 (PCR) (Not Detectd) Disposition <Ed Avila - Last Filed: 01/02/25 17:33> Is patient prescribed a controlled substance at d/c from ED?: No Time of Disposition: 21:33 <Kyree Becerra - Last Filed: 01/02/25 21:36> Clinical Impression: Hypoventilation associated with obesity, Asthma with acute exacerbation Disposition: HOME SELF-CARE Condition: Fair Instructions (If sedation given, give patient instructions): Asthma (ED) Prescriptions: predniSONE [Deltasone] 20 mg PO BID 5 Days #10 tab Albuterol Inhaler [Ventolin Hfa Inhaler] 1 - 2 puff INHALATION Q4HR PRN #1 each PRN Reason: Shortness Of Breath Referrals: Candy Fuentes MD [Primary Care Provider] - 1-2 days
--- NOTE | 2025-01-02 18:10 | XR ---
EXAMINATION TYPE: XR chest 2V DATE OF EXAM: 01/02/2025 6:06 PM COMPARISON: Chest radiographs from 12/03/2024. CLINICAL INDICATION: Female, 44 years old with history of difficulty breathing; [facility] TECHNIQUE: XR chest 2V Frontal and lateral views of the chest. FINDINGS: Lungs/Pleura: There is no evidence of pleural effusion, focal consolidation, or pneumothorax. Pulmonary vascularity: Unremarkable. Heart/mediastinum: Cardiomediastinal silhouette is unremarkable. Musculoskeletal: No acute osseous pathology. IMPRESSION: No acute cardiopulmonary disease/process. [facility], , 01/02/2025 6:08 PM
[2025-01-02 18:54] LABS: Basophils # (A) 0.1 k/uL (0-0.2); Basophils % (A) 0 %; Eosinophils # (A) 0.4 k/uL (0-0.7); Eosinophils % (A) 3 %; HCT 44.4 % (34.0-46.0); HGB 13.7 gm/dL (11.4-16.0); Lymphocytes # (A) 3.6 k/uL (1.0-4.8); Lymphocytes % (A) 31 %; MCH 27.3 pg (25.0-35.0); MCHC 30.8 g/dL (31.0-37.0); MCV 88.4 fL (80.0-100.0); Mean Platelet Volume 7.1; Monocytes # (A) 0.4 k/uL (0-1.0); Monocytes % (A) 3 %; Neutrophils # (A) 7.1 k/uL (1.3-7.7); Neutrophils % (A) 60 %; Platelet Count 276 k/uL (150-450); RBC 5.02 m/uL (3.80-5.40); RDW 14.2 % (11.5-15.5); WBC 11.7 k/uL (3.8-10.6)
[2025-01-02 19:14] LABS: ALT 27 U/L (4-34); AST 22 U/L (14-36); African American GFR (CKD) >90 (>60 ml/min/1.73 sqM); Albumin 3.9 g/dL (3.5-5.0); Alkaline Phosphatase 88 U/L (38-126); Anion Gap 11 mmol/L; Blood Urea Nitrogen 16 mg/dL (7-17); Calcium 9.5 mg/dL (8.4-10.2); Carbon Dioxide 27 mmol/L (22-30); Chloride 101 mmol/L (98-107); Glucose 102 mg/dL (74-99); Magnesium 1.6 mg/dL (1.6-2.3); Non-African American GFR(CKD) >90 (>60 ml/min/1.73 sqM); Potassium 4.2 mmol/L (3.5-5.1); Sodium 139 mmol/L (137-145); Total Bilirubin 0.6 mg/dL (0.2-1.3); Total Protein 6.3 g/dL (6.3-8.2)
[2025-01-02 19:22] LABS: NT-Pro-B-Type Natriuretic Pept 73 pg/mL
[2025-01-02 19:42] LABS: Influenza A Not Detected (Not Detectd); Influenza B Not Detected (Not Detectd); RSV Not Detected (Not Detectd)
[2025-01-02 19:46] LABS: INR 0.9 (<1.2); Prothrombin Time 10.1 sec (10.0-12.5)
[2025-01-02 19:49] LABS: Partial Thromboplastin Time 20.6 sec (22.0-30.0)
[2025-01-02 20:22] VITALS: PULSE 92
[2025-01-02] MEDS: DEXAMETHASONE SOD PHOSPHATE 10 MG/ML 1 ML VIAL IV STA (21:43)
[2025-01-02 21:48] VITALS: BP 112/77; RESP 20; TEMP 98.4
== END 2025-01-02 21:59 | disposition home or self-care (01) ==
LOC: EC 16:33
DX: E66.2 Morbid (severe) obesity with alveolar hypoventilation (principal); J45.901 Unspecified asthma with (acute) exacerbation; J44.9 Chronic obstructive pulmonary disease, unspecified; Z68.43 Body mass index [BMI] 50.0-59.9, adult; Z88.6 Allergy status to analgesic agent; Z91.013 Allergy to seafood
CPT/HCPCS: 36415; 93005; 85379; 83880; 80053; 83605; 83735; 84484; 85025; 85610; 85730; 87636; 71046; 99285; 96374; J1100

== ENCOUNTER 2025-01-17 13:23 | Inpatient (IN) | payer MEDICARE, OTHER ==
--- NOTE | 2025-01-17 14:00 | ED ---
Chest Pain HPI - General Chief Complaint: Chest Pain Stated Complaint: chest discomfort Time Seen by Provider: 01/17/25 13:30 Source: patient Mode of arrival: ambulatory Limitations: no limitations - History of Present Illness Initial Comments: 44-year-old female with past medical history of coronary disease, COPD, diabetes, hypertension who presents emergency department for abnormal stress test. History is provided by the patient as well as Dr. Fuentes. Dr. Fuentes calls and states that the patient had a stress echo done 2 days ago which was abnormal. Patient had reversible ischemia in the area of the LAD. She does see Dr. Pierre. She has been having active chest pain and therefore they called the patient to have her come back to the hospital for admission. Patient denies any coronary disease known at this time. No history of cardiac stent. She does have several risk factors for coronary disease including diabetes, hypertension and obesity. When evaluating the patient she does report to a pressure in her chest graded 8 out of 10. Denies fevers chills or cough. She does take Percocet at home for pain control but denies that it has helped today. She denies any nausea or vomiting. No calf pain or swelling. No other alleviating, precipitating or modifying factors - Related Data Home Medications Medication Instructions Recorded Confirmed Brexpiprazole [Rexulti] 0.5 mg PO DAILY 11/09/23 01/17/25 Montelukast [Singulair] 10 mg PO HS 11/09/23 01/17/25 Pantoprazole Sodium [Protonix] 20 mg PO DAILY 11/09/23 01/17/25 Insulin Glargine,Hum.rec.anlog 40 units SQ DAILY 09/01/24 01/17/25 [Lantus Solostar Pen] Lumateperone Tosylate [Caplyta] 42 mg PO DAILY 09/01/24 01/17/25 Semaglutide [Ozempic] 1 mg SQ WE 09/01/24 01/17/25 hydrOXYzine pamoate [Vistaril] 50 mg PO QID PRN 09/01/24 01/17/25 oxyCODONE-APAP 10-325MG [Percocet 1 tab PO TID 09/01/24 01/17/25 10-325 mg] Albuterol Nebulized [Ventolin 2.5 mg INHALATION RT-Q4H PRN 12/17/24 01/17/25 Nebulized] Aspirin EC [Ecotrin Low Dose] 81 mg PO DAILY 12/17/24 01/17/25 Celecoxib [Celebrex] 400 mg PO DAILY 12/17/24 01/17/25 Cetirizine HCl [Zyrtec] 10 mg PO DAILY 12/17/24 01/17/25 DULoxetine HCL [Cymbalta] 60 mg PO DAILY 12/17/24 01/17/25 Ergocalciferol (Vitamin D2) 1,250 mcg PO WE 12/17/24 01/17/25 [Drisdol (50,000 Iu)] Pregabalin [Lyrica] 100 mg PO TID 12/17/24 01/17/25 carvediloL [Coreg] 6.25 mg PO BID 12/17/24 01/17/25 Albuterol Inhaler [Ventolin Hfa 2 puff INHALATION RT-Q4H PRN 01/17/25 01/17/25 Inhaler] Atorvastatin [Lipitor] 20 mg PO DAILY 01/17/25 01/17/25 Budesonide [Pulmicort] 1 mg INHALATION RT-DAILY 01/17/25 01/17/25 Cyclobenzaprine [Flexeril] 10 mg PO HS 01/17/25 01/17/25 Famotidine 40 mg PO HS 01/17/25 01/17/25 QUEtiapine [SEROquel] 50 mg PO DIRECTED 01/17/25 01/17/25 valACYclovir HCL [Valtrex] 500 mg PO TID 01/17/25 01/17/25 Previous Rx's Medication Instructions Recorded metFORMIN HCL [Glucophage] 500 mg PO BID #60 tab 11/14/23 Dapagliflozin Propanediol [Farxiga] 10 mg PO DAILY #30 tab 01/19/25 Fluticasone/Umeclidin/Vilanter 1 puff INHALATION RT-DAILY #1 each 01/19/25 [Trelegy Ellipta 100-62.5-25] Losartan [Cozaar] 25 mg PO DAILY #30 tab 01/19/25 Nitroglycerin Sl Tabs [Nitrostat] 0.4 mg SUBLINGUAL Q5M PRN #20 tab 01/19/25 Allergies Allergy/AdvReac Type Severity Reaction Status Date / Time shellfish derived Allergy Rash/Hives Verified 01/17/25 15:20 tramadol Allergy Anaphylaxis Verified 01/17/25 15:20 naproxen AdvReac Rash/Hives Verified 01/17/25 15:20 Review of Systems ROS Statement: Those systems with pertinent positive or pertinent negative responses have been documented in the HPI. ROS Other: All systems not noted in ROS Statement are negative. Past Medical History Past Medical History: Asthma, Coronary Artery Disease (CAD), COPD, Diabetes Mellitus, Fibromyalgia, Hypertension, Rheumatoid Arthritis (RA) Additional Past Medical History / Comment(s): obesity. ABD PAIN History of Any Multi-Drug Resistant Organisms: None Reported Past Surgical History: No Surgical Hx Reported Additional Past Surgical History / Comment(s): CYST REMOVED FROM HEAD. COLONOSCOPY Past Anesthesia/Blood Transfusion Reactions: No Reported Reaction Past Psychological History: Bipolar Smoking Status: Never smoker Past Alcohol Use History: None Reported Past Drug Use History: Marijuana - Past Family History Mother Family Medical History: Cancer General Exam Limitations: no limitations General appearance: alert, in no apparent distress Head exam: Present: atraumatic, normocephalic, normal inspection Eye exam: Present: normal appearance, PERRL, EOMI. Absent: scleral icterus, conjunctival injection, periorbital swelling ENT exam: Present: normal exam, mucous membranes moist Neck exam: Present: normal inspection. Absent: tenderness, meningismus, lymphadenopathy Respiratory exam: Present: normal lung sounds bilaterally. Absent: respiratory distress, wheezes, rales, rhonchi, stridor Cardiovascular Exam: Present: regular rate, normal rhythm, normal heart sounds. Absent: systolic murmur, diastolic murmur, rubs, gallop, clicks GI/Abdominal exam: Present: soft, normal bowel sounds. Absent: distended, te nderness, guarding, rebound, rigid Extremities exam: Present: normal inspection, full ROM, normal capillary refill. Absent: tenderness, pedal edema, joint swelling, calf tenderness Back exam: Present: normal inspection Neurological exam: Present: alert, oriented X3, CN II-XII intact Psychiatric exam: Present: normal affect, normal mood Skin exam: Present: warm, dry, intact, normal color. Absent: rash Course Vital Signs 01/17/25 01/17/25 01/17/25 13:27 14:33 14:45 Temperature 97.8 F Pulse Rate 107 H 85 Pulse Rate [ Afternoon Nanny ] Respiratory 18 22 Rate Blood Pressure 127/84 118/73 Blood Pressure [Right Arm] O2 Sat by Pulse 98 87 L 92 L Oximetry 01/17/25 01/17/25 01/17/25 15:51 17:30 18:39 Temperature 97.7 F Pulse Rate 73 75 91 Pulse Rate [ Afternoon Nanny ] Respiratory 22 22 22 Rate Blood Pressure 115/63 110/60 108/64 Blood Pressure [Right Arm] O2 Sat by Pulse 90 L 91 L 92 L Oximetry 01/17/25 01/17/25 01/18/25 21:32 23:14 01:15 Temperature Pulse Rate 65 70 72 Pulse Rate [ Afternoon Nanny ] Respiratory 18 Rate Blood Pressure 105/61 150/57 Blood Pressure [Right Arm] O2 Sat by Pulse 93 L 94 L Oximetry 01/18/25 01/18/25 01/18/25 05:00 08:12 08:31 Temperature Pulse Rate 73 75 69 Pulse Rate [ Afternoon Nanny ] Respiratory 18 Rate Blood Pressure 131/84 Blood Pressure [Right Arm] O2 Sat by Pulse 96 Oximetry 01/18/25 01/18/25 01/18/25 09:20 12:15 12:21 Temperature 97.9 F 97.7 F Pulse Rate 67 83 Pulse Rate [ 80 Afternoon Nanny ] Respiratory 22 18 Rate Blood Pressure 125/81 Blood Pressure 119/63 [Right Arm] O2 Sat by Pulse 93 L 94 L Oximetry 01/18/25 01/18/25 01/18/25 12:34 13:25 15:39 Temperature Pulse Rate 85 75 90 Pulse Rate [ Afternoon Nanny ] Respiratory 16 Rate Blood Pressure 119/63 Blood Pressure [Right Arm] O2 Sat by Pulse 94 L Oximetry 01/18/25 01/18/25 01/18/25 15:51 16:55 20:27 Temperature 97.7 F 98.0 F Pulse Rate 87 85 Pulse Rate [ 82 Afternoon Nanny ] Respiratory 18 22 Rate Blood Pressure 119/63 Blood Pressure 123/75 [Right Arm] O2 Sat by Pulse 95 91 L Oximetry 01/18/25 01/19/25 01/19/25 21:36 01:34 05:41 Temperature 97.7 F Pulse Rate 71 66 72 Pulse Rate [ Afternoon Nanny ] Respiratory 18 18 Rate Blood Pressure 121/67 135/88 Blood Pressure [Right Arm] O2 Sat by Pulse 95 96 Oximetry 01/19/25 01/19/25 01/19/25 05:54 06:25 08:54 Temperature Pulse Rate 80 67 82 Pulse Rate [ Afternoon Nanny ] Respiratory 17 Rate Blood Pressure 131/82 Blood Pressure [Right Arm] O2 Sat by Pulse 95 Oximetry 01/19/25 09:06 Temperature Pulse Rate 64 Pulse Rate [ Afternoon Nanny ] Respiratory Rate Blood Pressure Blood Pressure [Right Arm] O2 Sat by Pulse Oximetry Chest Pain MDM - MDM Was pt. sent in by a medical professional or institution (, PA, VACUUM SYSTEM TESTER, urgent care, hospital, or fdc...) When possible be specific @ -Patient was sent in from her primary care office Did you speak to anyone other than the patient for history (EMS, parent, family, police, friend...)? What history was obtained from this source @ -Spoke with Dr. Fuentes for the history Did you review nursing and triage notes (agree or disagree)? Why? @ -I reviewed and agree with nursing and triage notes Were old charts reviewed (outside hosp., previous admission, EMS record, old EKG, old radiological studies, urgent care reports/EKG's, fdc records)? Report findings @ -No old charts were reviewed Differential Diagnosis (chest pain, altered mental status, abdominal pain women, abdominal pain men, vaginal bleeding, weakness, fever, dyspnea, syncope, headache, dizziness, GI bleed, back pain, seizure, CVA, palpatations, mental health, musculoskeletal)? @ -Differential Chest Pain: Stable Angina, Unstable Angina, STEMI, NSTEMI Aortic Dissection, Pneumothorax, Musculoskeletal, Esophageal Spasm GERD, Cholecystitis, Pancreatitis, Zoster, this is not meant to be an all-inclusive list. EKG interpreted by me (3pts min.). @ -Yes and demonstrates sinus rhythm with a rate of 94. OH interval 171. QRS 78. QTc of 398. No acute ST segment elevations or depressions X-rays interpreted by me (1pt min.). @ -Yes which demonstrates no acute process CT interpreted by me (1pt min.). @ -None done U/S interpreted by me (1pt. min.). @ -None done What testing was considered but not performed or refused? (CT, X-rays, U/S, la bs)? Why? @ -None What meds were considered but not given or refused? Why? @ -None Did you discuss the management of the patient with other professionals (professionals i.e. , PA, VACUUM SYSTEM TESTER, lab, RT, psych nurse, social service assistant, health therapist, teacher, bank officer, case monitor)? Give summary @ -Spoke with Dr. Velásquez for the admission Was smoking cessation discussed for >3mins.? @ -No Was critical care preformed (if so, how long)? @ -35 minutes for heparinization of the patient Were there social determinants of health that impacted care today? How? (Homelessness, low income, unemployed, alcoholism, drug addiction, transportation, low edu. Level, literacy, decrease access to med. care, usp, rehab)? @ -No Was there de-escalation of care discussed even if they declined (Discuss DNR or withdrawal of care, Hospice)? DNR status @ -No What co-morbidities impacted this encounter? (DM, HTN, Smoking, COPD, CAD, Cancer, CVA, ARF, Chemo, Hep., AIDS, mental health diagnosis, sleep apnea, morbid obesity)? @ -Hypertension, hyperlipidemia, diabetes Was patient admitted / discharged? Hospital course, mention meds given and route, prescriptions, significant lab abnormalities, going to OR and other pe rtinent info. @ -Upon arrival patient seen and evaluated in room 3. Thorough history and physical exam was performed. Patient placed on continuous pulse ox and cardiac monitoring. Twelve-lead EKG is obtained. Laboratory studies are conducted and chest x-ray is performed. Patient does have abnormal stress test and will be admitted. Spoke with Dr. Velásquez for the admission Undiagnosed new problem with uncertain prognosis? @ -No Drug Therapy requiring intensive monitoring for toxicity (Heparin, Nitro, Insulin, Cardizem)? @ -Heparin Were any procedures done? @ -No Diagnosis/symptom? @ -Acute chest pain, known abnormal stress test Acute, or Chronic, or Acute on Chronic? @ -Acute Uncomplicated (without systemic symptoms) or Complicated (systemic symptoms)? @ -Complicated Side effects of treatment? @ -No Exacerbation, Progression, or Severe Exacerbation? @ -No Poses a threat to life or bodily function? How? (Chest pain, [place], [place], pneumonia, PE, COPD, DKA, ARF, appy, cholecystitis, CVA, Diverticulitis, Homicidal, Suicidal, threat to staff... and all critical care pts) @ -Yes this patient did have an abnormal outpatient stress test Disposition Clinical Impression: Chest pain, Abnormal stress echo Disposition: ADMITTED IP TO THIS [facility] Condition: Stable Is patient prescribed a controlled substance at d/c from ED?: No Time of Disposition: 14:00 Decision to Admit Reason: Admit from EC Decision Date: 01/17/25 Decision Time: 14:00
[2025-01-17 14:24] LABS: Basophils # (A) 0.1 k/uL (0-0.2); Basophils % (A) 0 %; Eosinophils # (A) 0.2 k/uL (0-0.7); Eosinophils % (A) 2 %; HCT 41.8 % (34.0-46.0); HGB 13.5 gm/dL (11.4-16.0); Lymphocytes # (A) 3.7 k/uL (1.0-4.8); Lymphocytes % (A) 28 %; MCH 27.9 pg (25.0-35.0); MCHC 32.3 g/dL (31.0-37.0); MCV 86.3 fL (80.0-100.0); Mean Platelet Volume 7.5; Monocytes # (A) 0.5 k/uL (0-1.0); Monocytes % (A) 4 %; Neutrophils # (A) 8.5 k/uL (1.3-7.7); Neutrophils % (A) 65 %; Platelet Count 294 k/uL (150-450); RBC 4.84 m/uL (3.80-5.40); RDW 14.4 % (11.5-15.5)
[2025-01-17 14:35] LABS: Prothrombin Time 10.7 sec (10.0-12.5)
[2025-01-17] MEDS ORDERED: NALOXONE 0.4 MG/ML 1 ML VIAL IV PRN (14:37)
[2025-01-17] MEDS: ASPIRIN 81 MG PO STA (14:40)
[2025-01-17 14:41] LABS: ALT 26 U/L (4-34); AST 20 U/L (14-36); African American GFR (CKD) >90 (>60 ml/min/1.73 sqM); Albumin 3.8 g/dL (3.5-5.0); Alkaline Phosphatase 80 U/L (38-126); Anion Gap 10 mmol/L; Blood Urea Nitrogen 22 mg/dL (7-17); Calcium 9.3 mg/dL (8.4-10.2); Carbon Dioxide 27 mmol/L (22-30); Chloride 100 mmol/L (98-107); Glucose 204 mg/dL (74-99); Magnesium 1.6 mg/dL (1.6-2.3); Non-African American GFR(CKD) 87 (>60 ml/min/1.73 sqM); Partial Thromboplastin Time 21.1 sec (22.0-30.0); Potassium 3.4 mmol/L (3.5-5.1); Sodium 137 mmol/L (137-145); Total Bilirubin 0.5 mg/dL (0.2-1.3); Total Protein 6.1 g/dL (6.3-8.2)
[2025-01-17] MEDS: NITROGLYCERIN OINT 1 INCH/GM PACKET TOPICAL STA (14:41)
[2025-01-17] MEDS: MORPHINE SULFATE 4 MG/ML SYRINGE IVP STA (14:44)
[2025-01-17 14:45] LABS: NT-Pro-B-Type Natriuretic Pept 20 pg/mL
[2025-01-17] MEDS: HEPARIN SOD,PORK IN 0.45% NACL 25,000 UNIT in 0.45% NACL 1 250ML.BAG IV SCH (14:53)
[2025-01-17] MEDS ORDERED: DEXTROSE 50% SYRINGE 50 ML IVP PRN ×2 (19:11)
[2025-01-17] MEDS: POTASSIUM CHLORIDE ER 20 MEQ TAB.ER PO STA (19:46)
[2025-01-17] MEDS: SYMBICORT 160-4.5 MCG INHALER INHALATION SCH (20:00)
[2025-01-17] MEDS: ATORVASTATIN 20 MG TAB PO SCH (22:09)
[2025-01-17] MEDS: carvediloL 6.25 MG TAB PO SCH (22:09)
[2025-01-17] MEDS: FAMOTIDINE 20 MG TAB PO SCH (22:09)
[2025-01-17] MEDS: MONTELUKAST 10 MG TAB PO SCH (22:09)
[2025-01-17 22:11] LABS: Glucose,Whole Blood 154 mg/dL (70-110)
--- NOTE | 2025-01-17 22:14 | P.HPIM ---
History of Present Illness H&P Date: 01/17/25 Chief Complaint: Chest pain Patient is a 44-year-old female with a past medical history of morbid obesity BMI 50.3, obesity hypoventilation and chronic hypercapnic respiratory failure, asthma/COPD, hypertension, diabetes type 2 insulin-dependent, fibromyalgia, rheumatoid arthritis, bipolar disorder and marijuana use. Patient was sent to ER from Dr. Fuentes's office due to abnormal stress test. Patient had stress test 2 days ago which was abnormal and showed reversible isc hemia in the area of the LAD. Patient was seen at Dr. Pierre's office. She was called to come back to the ER for admission. Otherwise denied any prior history of coronary disease. Patient states that she has been having sharp chest pain 8 out of 10 retrosternal and constant pressure-like sensation for the past month. Radiating across to the back. Associate with shortness of breath. No nausea or vomiting. Patient states his oxygen did help. Patient was previously admitted to hospital in October 2023. Patient did require home oxygen at that time. Otherwise denies any recent illnesses. No cough or sputum production. Denied any fever or chills. Patient states that her brother of [place] last year and also her grandfather had coronary heart disease. Review of Systems Constitutional: Patient denies any fever or chills . No generalized weakness or weight loss. Abdomen: Patient denied nausea vomiting and diarrhea and abdominal pain. Cardiovascular: Complains sharp chest pain retrosternal associated shortness of breath. No leg swelling. No palpitations. Respiratory: patient denied any cough or sputum production. No shortness of breath Neurologic: Patient denied any numbness or tingling. no headache. Musculoskeletal: Patient denies any complaints of joint swelling or deformity. Skin: Negative Psychiatric: Negative Endocrine: No heat or cold intolerance. No recent weight gain. Genitourinary: No dysuria or hematuria. All other 14 point ROS negative except the above Past Medical History Past Medical History: Asthma, Coronary Artery Disease (CAD), COPD, Diabetes Mellitus, Fibromyalgia, Hypertension, Rheumatoid Arthritis (RA) Additional Past Medical History / Comment(s): obesity. ABD PAIN History of Any Multi-Drug Resistant Organisms: None Reported Past Surgical History: No Surgical Hx Reported Additional Past Surgical History / Comment(s): CYST REMOVED FROM HEAD. COLONOSCOPY Past Anesthesia/Blood Transfusion Reactions: No Reported Reaction Past Psychological History: Bipolar Smoking Status: Never smoker Past Alcohol Use History: None Reported Past Drug Use History: Marijuana - Past Family History Mother Family Medical History: Cancer Medications and Allergies Home Medications Medication Instructions Recorded Confirmed Type Brexpiprazole [Rexulti] 0.5 mg PO DAILY 11/09/23 01/17/25 History Montelukast [Singulair] 10 mg PO HS 11/09/23 01/17/25 History Pantoprazole Sodium [Protonix] 20 mg PO DAILY 11/09/23 01/17/25 History metFORMIN HCL [Glucophage] 500 mg PO BID #60 tab 11/14/23 01/17/25 Rx Insulin Glargine,Hum.rec.anlog 40 units SQ DAILY 09/01/24 01/17/25 History [Lantus Solostar Pen] Lumateperone Tosylate [Caplyta] 42 mg PO DAILY 09/01/24 01/17/25 History Semaglutide [Ozempic] 1 mg SQ WE 09/01/24 01/17/25 History hydrOXYzine pamoate [Vistaril] 50 mg PO QID PRN 09/01/24 01/17/25 History oxyCODONE-APAP 10-325MG [Percocet 1 tab PO TID 09/01/24 01/17/25 History 10-325 mg] Albuterol Nebulized [Ventolin 2.5 mg INHALATION RT-Q4H PRN 12/17/24 01/17/25 History Nebulized] Aspirin EC [Ecotrin Low Dose] 81 mg PO DAILY 12/17/24 01/17/25 History Celecoxib [Celebrex] 400 mg PO DAILY 12/17/24 01/17/25 History Cetirizine HCl [Zyrtec] 10 mg PO DAILY 12/17/24 01/17/25 History DULoxetine HCL [Cymbalta] 60 mg PO DAILY 12/17/24 01/17/25 History Ergocalciferol (Vitamin D2) 1,250 mcg PO WE 12/17/24 01/17/25 History [Drisdol (50,000 Iu)] Fluticasone/Umeclidin/Vilanter 1 puff INHALATION RT-DAILY 12/17/24 01/17/25 History [Trelegy Ellipta 100-62.5-25] Pregabalin [Lyrica] 100 mg PO TID 12/17/24 01/17/25 History carvediloL [Coreg] 6.25 mg PO BID 12/17/24 01/17/25 History Albuterol Inhaler [Ventolin Hfa 2 puff INHALATION RT-Q4H PRN 01/17/25 01/17/25 History Inhaler] Atorvastatin [Lipitor] 20 mg PO DAILY 01/17/25 01/17/25 History Budesonide [Pulmicort] 1 mg INHALATION RT-DAILY 01/17/25 01/17/25 History Cyclobenzaprine [Flexeril] 10 mg PO HS 01/17/25 01/17/25 History Famotidine 40 mg PO HS 01/17/25 01/17/25 History Losartan Potassium 100 mg PO DAILY 01/17/25 01/17/25 History QUEtiapine [SEROquel] 50 mg PO DIRECTED 01/17/25 01/17/25 History amLODIPine [Norvasc] 2.5 mg PO DAILY 01/17/25 01/17/25 History valACYclovir HCL [Valtrex] 500 mg PO TID 01/17/25 01/17/25 History Allergies Allergy/AdvReac Type Severity Reaction Status Date / Time shellfish derived Allergy Rash/Hives Verified 01/17/25 15:20 tramadol Allergy Anaphylaxis Verified 01/17/25 15:20 naproxen AdvReac Rash/Hives Verified 01/17/25 15:20 Physical Exam Vitals: Vital Signs Temp Pulse Resp BP Pulse Ox 01/17/25 18:39 97.7 F 91 22 108/64 92 L 01/17/25 17:30 75 22 110/60 91 L 01/17/25 15:51 73 22 115/63 90 L 01/17/25 14:45 92 L 01/17/25 14:33 85 22 118/73 87 L 01/17/25 13:27 97.8 F 107 H 18 127/84 98 Intake and Output 01/17/25 01/17/25 01/17/25 06:59 14:59 22:59 Other: Weight 124.738 kg PHYSICAL EXAMINATION: Patient is lying in the bed comfortably, no acute distress, awake alert and oriented. Morbidly obese. HEENT: Normocephalic. Neck is supple. Pupils reactive. Nostrils clear. Oral cavity is moist. Neck reveals no JVD, carotid bruits, or thyromegaly. CHEST EXAMINATION: Trachea is central. Symmetrical expansion. Bibasilar diminished sounds. No wheezing or rhonchi. Nonlabored breathing.. CARDIAC: Normal S1, S2 with no gallops. No murmurs ABDOMEN: Soft. Bowel sounds normal. No organomegaly. No abdominal bruits. Extremities: reveal no edema. No clubbing or cyanosis Neurologically awake, alert, oriented x3 with well-coordinated movements. No gross focal deficits noted Skin: No rash or skin lesions. Psychiatric: Coperative. Nonsuicidal Musculoskeletal: No joint swelling or deformity. Normal range of motion. Results CBC & Chem 7: 01/17/25 14:12 01/17/25 14:12 Labs: Abnormal Lab Results - Last 24 Hours (Table) 01/17/25 01/17/25 01/17/25 Range/Units 14:12 14:12 14:12 WBC 13.0 H (3.8-10.6) k/uL Neutrophils # 8.5 H (1.3-7.7) k/uL APTT 21.1 L (22.0-30.0) sec Potassium 3.4 L (3.5-5.1) mmol/L BUN 22 H (7-17) mg/dL Glucose 204 H (74-99) mg/dL Total Protein 6.1 L (6.3-8.2) g/dL Thrombosis Risk Factor Assmnt - DVT/VTE Prophylaxis DVT/VTE Prophylaxis: Pharmacologic Prophylaxis ordered Assessment and Plan Assessment: Chest pain with abnormal stress test / possible unstable angina Chronic hypoxemic and hypercapnic respiratory failure requiring oxygen via nasal cannula Morbid obesity with obesity hypoventilation syndrome and obstructive sleep apnea clinically suspected. Patient was previously recommended to follow-up in the pulmonary clinic. Mild pulmonary hypertension Hypertension Diabetes type 2 insulin-dependent. Patient is also on Ozempic q. weekly Fibromyalgia Rheumatoid arthritis Bipolar disorder Prior history of smoking Marijuana use on daily basis Plan: Patient will be continued on telemonitoring. Follow-up serial EKG and troponin x 3. She was started on heparin drip. Continue with aspirin, statin and Coreg. Cardiology was consulted for evaluation. Start back on Lantus 40 units daily along with insulin sliding scale. Continue DuoNebs and Symbicort. Current oxygen supplementation and other home medications and follow-up closely.. Prognosis guarded with multiple acute problems and comorbid conditions. Time with Patient: Greater than 30
[2025-01-17] MEDS: INSULIN LISPRO (HumaLOG) 100 UNIT/ML 10 mL VL SQ SCH (22:18)
[2025-01-17] MEDS: HEPARIN SODIUM 1,000 UN/ML (10ML VL) IV PRN (22:20)
[2025-01-17] MEDS: ALBUTEROL NEBULIZED 2.5 MG/3 ML INHALATION PRN (23:09)
[2025-01-18 05:07] LABS: Basophils # (A) 0.1 k/uL (0-0.2); Basophils % (A) 1 %; Eosinophils # (A) 0.2 k/uL (0-0.7); Eosinophils % (A) 2 %; HCT 41.4 % (34.0-46.0); HGB 13.1 gm/dL (11.4-16.0); Hypochromasia Slight; Lymphocytes # (A) 3.7 k/uL (1.0-4.8); Lymphocytes % (A) 28 %; MCH 27.8 pg (25.0-35.0); MCHC 31.5 g/dL (31.0-37.0); MCV 88.3 fL (80.0-100.0); Mean Platelet Volume 7.2; Monocytes # (A) 0.5 k/uL (0-1.0); Monocytes % (A) 4 %; Neutrophils # (A) 8.4 k/uL (1.3-7.7); Neutrophils % (A) 64 %; Platelet Count 267 k/uL (150-450); RBC 4.69 m/uL (3.80-5.40); RDW 14.4 % (11.5-15.5)
[2025-01-18 05:14] LABS: INR 0.9 (<1.2); Partial Thromboplastin Time 30.2 sec (22.0-30.0); Prothrombin Time 10.5 sec (10.0-12.5)
[2025-01-18 05:17] LABS: African American GFR (CKD) >90 (>60 ml/min/1.73 sqM); Anion Gap 3 mmol/L; Blood Urea Nitrogen 19 mg/dL (7-17); Carbon Dioxide 32 mmol/L (22-30); Chloride 101 mmol/L (98-107); Glucose 112 mg/dL (74-99); Non-African American GFR(CKD) >90 (>60 ml/min/1.73 sqM); Potassium 4.6 mmol/L (3.5-5.1); Sodium 136 mmol/L (137-145)
[2025-01-18] MEDS: TIOTROPIUM 2.5 MCG INHALER INHALATION SCH (08:12)
[2025-01-18 08:27] LABS: Glucose,Whole Blood 116 mg/dL (70-110)
[2025-01-18] MEDS: ASPIRIN 81 MG PO SCH (09:22)
[2025-01-18] MEDS: PANTOPRAZOLE 40 MG TABLET PO SCH (09:22)
--- NOTE | 2025-01-18 09:50 | P.CRDCN ---
History of Present Illness Consult date: 01/18/25 History of present illness: The patient is a pleasant 44-year-old female patient who follows with our office and she sees Dr. Pierre on regular basis with a past medical history significant for overweight and diabetes and hypertension and dyslipidemia who presented to the emergency department complaining of chest discomfort which she was seen recently in the office where she was experiencing symptoms of chest discomfort and she underwen stress test came to be abnormal and she is scheduled to undergo a heart catheterization in January 2025. Subsequently she presented to the hospital with a chest discomfort in the middle of the chest as a dull feeling with no radiation and no associated symptoms besides shortness of breath but no dizziness or lightheadedness and no feeling of heart racing or fluttering and no presyncope or syncope further evaluation was performed including an EKG showing sinus mechanism with no ischemic ST or T wave abnormalities and cardiac enzymes came to be unremarkable. Currently she is chest pain-free. She is on heparin which I am going to stop at this point. She is on aspirin and she is on statin. She does have multiple risk factors including diabetes and hypertension and dyslipidemia and overweight. No established history of CAD or heart failure or cardiac arrhythmia. The physical examination is remarkable for distant heart sounds with a soft systolic murmur and mild bilateral expiratory wheezing and no edema was noted in the lower extremities. An echo from 2023 showed normal LV systolic function Assessment Chest discomfort in someone with abnormal stress test and multiple risk factors Multiple risk factors as described above Plan Schedule the patient to undergo coronary angiogram DC heparin Continue with the current medical regimen Follow-up with the patient Past Medical History Past Medical History: Asthma, Coronary Artery Disease (CAD), COPD, Diabetes Mellitus, Fibromyalgia, Hypertension, Rheumatoid Arthritis (RA) Additional Past Medical History / Comment(s): obesity. ABD PAIN History of Any Multi-Drug Resistant Organisms: None Reported Past Surgical History: No Surgical Hx Reported Additional Past Surgical History / Comment(s): CYST REMOVED FROM HEAD. COLONO SCOPY Past Anesthesia/Blood Transfusion Reactions: No Reported Reaction Past Psychological History: Bipolar Smoking Status: Never smoker Past Alcohol Use History: None Reported Past Drug Use History: Marijuana - Past Family History Mother Family Medical History: Cancer Medications and Allergies Home Medications Medication Instructions Recorded Confirmed Type Brexpiprazole [Rexulti] 0.5 mg PO DAILY 11/09/23 01/17/25 History Montelukast [Singulair] 10 mg PO HS 11/09/23 01/17/25 History Pantoprazole Sodium [Protonix] 20 mg PO DAILY 11/09/23 01/17/25 History metFORMIN HCL [Glucophage] 500 mg PO BID #60 tab 11/14/23 01/17/25 Rx Insulin Glargine,Hum.rec.anlog 40 units SQ DAILY 09/01/24 01/17/25 History [Lantus Solostar Pen] Lumateperone Tosylate [Caplyta] 42 mg PO DAILY 09/01/24 01/17/25 History Semaglutide [Ozempic] 1 mg SQ WE 09/01/24 01/17/25 History hydrOXYzine pamoate [Vistaril] 50 mg PO QID PRN 09/01/24 01/17/25 History oxyCODONE-APAP 10-325MG [Percocet 1 tab PO TID 09/01/24 01/17/25 History 10-325 mg] Albuterol Nebulized [Ventolin 2.5 mg INHALATION RT-Q4H PRN 12/17/24 01/17/25 History Nebulized] Aspirin EC [Ecotrin Low Dose] 81 mg PO DAILY 12/17/24 01/17/25 History Celecoxib [Celebrex] 400 mg PO DAILY 12/17/24 01/17/25 History Cetirizine HCl [Zyrtec] 10 mg PO DAILY 12/17/24 01/17/25 History DULoxetine HCL [Cymbalta] 60 mg PO DAILY 12/17/24 01/17/25 History Ergocalciferol (Vitamin D2) 1,250 mcg PO WE 12/17/24 01/17/25 History [Drisdol (50,000 Iu)] Fluticasone/Umeclidin/Vilanter 1 puff INHALATION RT-DAILY 12/17/24 01/17/25 History [Trelegy Ellipta 100-62.5-25] Pregabalin [Lyrica] 100 mg PO TID 12/17/24 01/17/25 History carvediloL [Coreg] 6.25 mg PO BID 12/17/24 01/17/25 History Albuterol Inhaler [Ventolin Hfa 2 puff INHALATION RT-Q4H PRN 01/17/25 01/17/25 History Inhaler] Atorvastatin [Lipitor] 20 mg PO DAILY 01/17/25 01/17/25 History Budesonide [Pulmicort] 1 mg INHALATION RT-DAILY 01/17/25 01/17/25 History Cyclobenzaprine [Flexeril] 10 mg PO HS 01/17/25 01/17/25 History Famotidine 40 mg PO HS 01/17/25 01/17/25 History Losartan Potassium 100 mg PO DAILY 01/17/25 01/17/25 History QUEtiapine [SEROquel] 50 mg PO DIRECTED 01/17/25 01/17/25 History amLODIPine [Norvasc] 2.5 mg PO DAILY 01/17/25 01/17/25 History valACYclovir HCL [Valtrex] 500 mg PO TID 01/17/25 01/17/25 History Allergies Allergy/AdvReac Type Severity Reaction Status Date / Time shellfish derived Allergy Rash/Hives Verified 01/17/25 15:20 tramadol Allergy Anaphylaxis Verified 01/17/25 15:20 naproxen AdvReac Rash/Hives Verified 01/17/25 15:20 Physical Exam Vitals: Vital Signs Temp Pulse Resp BP Pulse Ox 01/18/25 09:20 97.9 F 67 22 125/81 93 L 01/18/25 08:31 69 01/18/25 08:12 75 01/18/25 05:00 73 18 131/84 96 01/18/25 01:15 72 18 150/57 94 L 01/17/25 23:14 70 01/17/25 21:32 65 105/61 93 L 01/17/25 18:39 97.7 F 91 22 108/64 92 L 01/17/25 17:30 75 22 110/60 91 L 01/17/25 15:51 73 22 115/63 90 L 01/17/25 14:45 92 L 01/17/25 14:33 85 22 118/73 87 L 01/17/25 13:27 97.8 F 107 H 18 127/84 98 Intake and Output 01/17/25 01/18/25 01/18/25 22:59 06:59 14:59 Intake Total 74.177 96.504 Balance 74.177 96.504 Intake: Intake, IV Titration 74.177 96.504 Amount Heparin Sod,Pork in 0.45% 74.177 96.504 NaCl 25,000 unit In 0.45 % NaCl 1 250ml.bag @ 8 UNITS/KG/HR 9.979 mls/hr IV .Q24H [facility] Rx#: [id number] Other: # Voids 1 # Bowel Movements 0 Results 01/18/25 04:42 01/18/25 04:42 Cardiac Enzymes 01/17/25 01/17/25 01/17/25 Range/Units 14:12 14:12 17:04 AST 20 (14-36) U/L Troponin I <0.012 <0.012 (0.000-0.034) ng/mL 01/17/25 Range/Units 20:51 AST (14-36) U/L Troponin I <0.012 (0.000-0.034) ng/mL Coagulation 01/17/25 01/17/25 01/18/25 Range/Units 14:12 20:51 04:42 PT 10.7 10.5 (10.0-12.5) sec APTT 21.1 L 24.3 30.2 H (22.0-30.0) sec CBC 01/17/25 01/18/25 Range/Units 14:12 04:42 WBC 13.0 H 13.0 H (3.8-10.6) k/uL RBC 4.84 4.69 (3.80-5.40) m/uL Hgb 13.5 13.1 (11.4-16.0) gm/dL Hct 41.8 41.4 (34.0-46.0) % Plt Count 294 267 (150-450) k/uL Comprehensive Metabolic Panel 01/17/25 01/18/25 Range/Units 14:12 04:42 Sodium 137 136 L (137-145) mmol/L Potassium 3.4 L 4.6 (3.5-5.1) mmol/L Chloride 100 101 (98-107) mmol/L Carbon Dioxide 27 32 H (22-30) mmol/L BUN 22 H 19 H (7-17) mg/dL Creatinine 0.82 0.67 (0.52-1.04) mg/dL Glucose 204 H 112 H (74-99) mg/dL Calcium 9.3 9.0 (8.4-10.2) mg/dL AST 20 (14-36) U/L ALT 26 (4-34) U/L Alkaline Phosphatase 80 (38-126) U/L Total Protein 6.1 L (6.3-8.2) g/dL Albumin 3.8 (3.5-5.0) g/dL Current Medications Generic Name Dose Route Start Last Admin Trade Name Freq PRN Reason Stop Dose Admin Albuterol Sulfate 2.5 mg 01/17/25 19:11 01/18/25 08:11 Albuterol Nebulized 2.5 Mg/3 Ml INHALATION 2.5 mg RT-Q4H PRN Administration Shortness Of Breath Aspirin 81 mg 01/18/25 09:00 01/18/25 09:22 Aspirin 81 Mg PO 81 mg DAILY [facility] Administration Atorvastatin Calcium 20 mg 01/17/25 21:00 01/17/25 22:09 Atorvastatin 20 Mg Tab PO 20 mg HS CHARLY Administration Budesonide/Formoterol Fumarate 2 puff 01/17/25 20:00 01/18/25 08:11 Symbicort 160-4.5 Mcg Inhaler INHALATION 2 puff RT-BID CHARLY Administration Carvedilol 6.25 mg 01/17/25 21:00 01/18/25 09:22 Carvedilol 6.25 Mg Tab PO 6.25 mg BID-W/MEALS CHARLY Administration Dextrose/Water 25 ml 01/17/25 19:11 Dextrose 50% Syringe 50 Ml IVP PER PROTOCOL PRN Hypoglycemia Protocol Dextrose/Water 50 ml 01/17/25 19:11 Dextrose 50% Syringe 50 Ml IVP PER PROTOCOL PRN Hypoglycemia Protocol Famotidine 40 mg 01/17/25 21:00 01/17/25 22:09 Famotidine 20 Mg Tab PO 40 mg HS CHARLY Administration Heparin Sodium (Porcine) 0 unit 01/17/25 14:01 01/17/25 22:20 Heparin Sodium 1,000 Un/Ml (10ml Vl) IV 6,200 unit PER PROTOCOL PRN Administration Low PTT Protocol Heparin Sodium/Sodium Chloride 250 mls @ 9.979 mls/hr 01/17/25 14:15 01/18/25 05:21 25,000 unit/ Sodium Chloride IV 14 units/kg/hr .Q24H [facility] 17.463 mls/hr Titration Protocol 8 UNITS/KG/HR Insulin Glargine 40 unit 01/18/25 07:00 Insulin Glargine (Lantus) 100 Unit/Ml Syr SQ DAILY@0700 [facility] Insulin Human Lispro 0 unit 01/17/25 21:00 01/18/25 08:31 Insulin Lispro (Humalog) 100 Unit/Ml 10 Ml Vl SQ Not Given ACHS CHARLY Protocol Montelukast Sodium 10 mg 01/17/25 21:00 01/17/25 22:09 Montelukast 10 Mg Tab PO 10 mg HS CAHRLY Administration Naloxone HCl 0.2 mg 01/17/25 14:37 Naloxone 0.4 Mg/Ml 1 Ml Vial IV Q2M PRN Opioid Reversal Pantoprazole Sodium 40 mg 01/18/25 07:30 01/18/25 09:22 Pantoprazole 40 Mg Tablet PO 40 mg AC-[id number] CHARLY Administration Tiotropium Dairy 2 puff 01/18/25 08:00 01/18/25 08:12 Tiotropium 2.5 Mcg Inhaler INHALATION 2 puff RT-DAILY CHARLY Administration Intake and Output 01/17/25 01/18/25 01/18/25 22:59 06:59 14:59 Intake Total 74.177 96.504 Balance 74.177 96.504 Intake: Intake, IV Titration 74.177 96.504 Amount Heparin Sod,Pork in 0.45% 74.177 96.504 NaCl 25,000 unit In 0.45 % NaCl 1 250ml.bag @ 8 UNITS/KG/HR 9.979 mls/hr IV .Q24H [facility] Rx#: [id number] Other: # Voids 1 # Bowel Movements 0 01/18/25 04:42 01/18/25 04:42
[2025-01-18 10:22] LABS: Chol/HDL Ratio 3.61 Ratio; LDL Cholesterol,Calculated 71.3 mg/dL (0.0-131.0)
[2025-01-18 12:26] LABS: Glucose,Whole Blood 142 mg/dL (70-110)
[2025-01-18] MEDS: oxyCODONE-APAP 10-325MG 1 EACH TAB PO PRN (12:53)
[2025-01-18] MEDS: INSULIN GLARGINE (LANTUS) 100 UNIT/ML SYR SQ SCH (12:54)
--- NOTE | 2025-01-18 13:10 | XR ---
EXAMINATION TYPE: XR chest 1V portable DATE OF EXAM: 01/18/2025 COMPARISON: 01/02/2025 CLINICAL INDICATION: Female, 44 years old with history of shortness of breath, chest pain; TECHNIQUE: Single frontal view of the chest is obtained. FINDINGS: There is no focal air space opacity, pleural effusion, or pneumothorax seen. The cardiac silhouette size is within normal limits. The osseous structures are intact. IMPRESSION: No acute process. [facility], , 01/18/2025 1:08 PM
--- NOTE | 2025-01-18 13:51 | US ---
EXAMINATION TYPE: US transvaginal DATE OF EXAM: 01/17/2025 COMPARISON: 11/15/24 CLINICAL INDICATION: Female, 44 years old with history of vaginal bleeding; post meghann vag bleeding. m enopause began 1 year ago TECHNIQUE: Transvaginal (TV). Transvaginal sonographic images were medically necessary to better assess the following anatomy: Endo metrium Doppler imaging: Not performed. FINDINGS: Date of LMP: post meghann EXAM MEASUREMENTS: Uterus: 9.0x5.2x6.5 cm Endometrial Stripe: 0.6 cm Right Ovary: Not visualized due to bowel gas. Left Ovary: Not visualized due to bowel gas. 1. Uterus: Anteverted fibroid adjacent to endo again noted. Venetian blind sign and thickened post erior aspect of uterus 2. Endometrium: trace free fluid, slightly thick for post meghann pt. 3. Right Ovary: Obscured by overlying bowel gas 4. Left Ovary: Obscured by overlying bowel gas 5. Bilateral Adnexa: wnl 6. Posterior cul-de-sac: wnl exam limited by bowel gas and large body habitus Anteverted uterus with intramural fibroid again identified adjacent to the endometrium. Venetian blin d and thickened posterior appearance of the uterus consistent with fibroid. Borderline thickened endo metrium for postmenopausal patient. Trace fluid in endometrial canal. Both ovaries are obscured by ov erlying bowel gas. No free fluid. IMPRESSION: 1. Borderline thickened endometrium for postmenopausal patient with trace fluid within the endometria l canal. This can be seen with endometrial hyperplasia versus endometrial carcinoma versus other etio logies. Recommend direct visualization in the setting of postmenopausal bleeding. 2. Fibroid changes of the uterus. 3. Nonvisualization of both ovaries due to overlying bowel gas. [facility], , 01/18/2025 1:49 PM
[2025-01-18 17:37] LABS: Glucose,Whole Blood 139 mg/dL (70-110)
[2025-01-18 21:12] LABS: Glucose,Whole Blood 141 mg/dL (70-110)
--- NOTE | 2025-01-18 22:57 | P.PN ---
Subjective Progress Note Date: 01/18/25 Patient is a 44-year-old female with a past medical history of morbid obesity BMI 50.3, obesity hypoventilation and chronic hypercapnic respiratory failure, asthma/COPD, hypertension, diabetes type 2 insulin-dependent, fibromyalgia, rheumatoid arthritis, bipolar disorder and marijuana use. Patient was sent to ER from Dr. Fuentes's office due to abnormal stress test. Patient had stress test 2 days ago which was abnormal and showed reversible ischemia in the area of the LAD. Patient was seen at Dr. Pierre's office. She was called to come back to the ER for admission. Otherwise denied any prior history of coronary disease. Patient states that she has been having sharp chest pain 8 out of 10 retroster nal and constant pressure-like sensation for the past month. Radiating across to the back. Associate with shortness of breath. No nausea or vomiting. Patient states his oxygen did help. Patient was previously admitted to hospital in October 2023. Patient did require home oxygen at that time. Otherwise denies any recent illnesses. No cough or sputum production. Denied any fever or chills. Patient states that her brother of [place] last year and also her grandfather had coronary heart disease. 01/18/2025 Patient is lying in the bed. Awake alert and oriented. Complains of on chest pains. Denies any worsening shortness of breath. No cough or sputum production. Patient was seen by cardiology and is planning for catheterization. Heparin drip has been discontinued. Chest x-ray showed no acute cardiopulmonary process. Transvaginal ultrasound was done due to vaginal bleeding showed anteverted fibroid dissent to Endo noted. Borderline thickened endometrium for postmenopausal patient with trace fluid within the endometrial canal. This can be seen with endometrial hyperplasia versus endometrial cancer, versus other etiologies. Fibroid changes of the uterus. Laboratory data showed hemoglobin 13.1 WBC 13.0 and platelets 267 sodium 136 potassium 4.6 chloride 101 bicarb is 32 BUN 19 and creatinine 0.67 and A1c 6.5 LDL 71.3 and total cholesterol 154 and triglycerides 200. Current medications reviewed. Objective - Vital Signs Vital signs: Vital Signs Temp 98.0 F 01/18/25 20:27 Pulse 71 01/18/25 21:36 Resp 18 01/18/25 21:36 BP 121/67 01/18/25 21:36 Pulse Ox 95 01/18/25 21:36 FiO2 Intake & Output 01/18/25 01/18/25 01/19/25 06:59 18:59 06:59 Intake Total 170.681 350 Balance 170.681 350 Intake: Intake, IV Titration 170.681 Amount Heparin Sod,Pork in 0.45% 170.681 NaCl 25,000 unit In 0.45 % NaCl 1 250ml.bag @ 8 UNITS/KG/HR 9.979 mls/hr IV .Q24H [facility] Rx#: [id number] Oral 350 Other: # Voids 2 # Bowel Movements 1 - Exam PHYSICAL EXAMINATION: Patient is lying in the bed comfortably, no acute distress, awake alert and oriented. Morbidly obese. HEENT: Normocephalic. Neck is supple. Pupils reactive. Nostrils clear. Oral cavity is moist. Neck reveals no JVD, carotid bruits, or thyromegaly. CHEST EXAMINATION: Trachea is central. Symmetrical expansion. Bibasilar diminished sounds. No wheezing or rhonchi. Nonlabored breathing.. CARDIAC: Normal S1, S2 with no gallops. No murmurs ABDOMEN: Soft. Bowel sounds normal. No organomegaly. No abdominal bruits. Extremities: reveal no edema. No clubbing or cyanosis Neurologically awake, alert, oriented x3 with well-coordinated movements. No gross focal deficits noted Skin: No rash or skin lesions. Psychiatric: Coperative. Nonsuicidal Musculoskeletal: No joint swelling or deformity. Normal range of motion. - Labs CBC & Chem 7: 01/18/25 04:42 01/18/25 04:42 Labs: Abnormal Lab Results - Last 24 Hours (Table) 01/18/25 01/18/25 01/18/25 Range/Units 04:42 04:42 04:42 WBC 13.0 H (3.8-10.6) k/uL Neutrophils # 8.4 H (1.3-7.7) k/uL APTT (22.0-30.0) sec Sodium 136 L (137-145) mmol/L Carbon Dioxide 32 H (22-30) mmol/L BUN 19 H (7-17) mg/dL Glucose 112 H (74-99) mg/dL POC Glucose (mg/dL) (70-110) mg/dL Hemoglobin A1c 6.5 H (<=6.0) % Triglycerides 200.00 H (0.00-149.00) mg/dL 01/18/25 01/18/25 01/18/25 Range/Units 04:42 08:22 12:25 WBC (3.8-10.6) k/uL Neutrophils # (1.3-7.7) k/uL APTT 30.2 H (22.0-30.0) sec Sodium (137-145) mmol/L Carbon Dioxide (22-30) mmol/L BUN (7-17) mg/dL Glucose (74-99) mg/dL POC Glucose (mg/dL) 116 H 142 H (70-110) mg/dL Hemoglobin A1c (<=6.0) % Triglycerides (0.00-149.00) mg/dL 01/18/25 01/18/25 Range/Units 17:36 21:10 WBC (3.8-10.6) k/uL Neutrophils # (1.3-7.7) k/uL APTT (22.0-30.0) sec Sodium (137-145) mmol/L Carbon Dioxide (22-30) mmol/L BUN (7-17) mg/dL Glucose (74-99) mg/dL POC Glucose (mg/dL) 139 H 141 H (70-110) mg/dL Hemoglobin A1c (<=6.0) % Triglycerides (0.00-149.00) mg/dL Assessment and Plan Assessment: Chest pain with abnormal stress test / possible unstable angina Chronic hypoxemic and hypercapnic respiratory failure requiring oxygen via nasal cannula Morbid obesity with obesity hypoventilation syndrome and obstructive sleep apnea clinically suspected. Patient was previously recommended to follow-up in the pulmonary clinic. Mild pulmonary hypertension Hypertension Diabetes type 2 insulin-dependent. Patient is also on Ozempic q. weekly Fibromyalgia Rheumatoid arthritis Bipolar disorder Prior history of smoking Marijuana use on daily basis Vaginal bleeding postmenopausal. Plan: Patient will be continued on telemonitoring. Follow-up serial EKG and troponin x 3 negative.. Heparin drip has been discontinued. Cardiology is planning for coronary angiogram. Continue with aspirin, statin and Coreg. Start back on Lantus 40 units daily along with insulin sliding scale. Continue DuoNebs and Symbicort. Current oxygen supplementation and other home medications and follow-up closely.. Transvaginal ultrasound report as above. Patient was recommended to follow-up with [facility] as an outpatient for direct visualization.. Prognosis guarded with multiple acute problems and comorbid conditions. Time with Patient: Greater than 30
[2025-01-19] MEDS ORDERED: ALPRAZolam 0.5 MG TAB PO PRN (07:48)
[2025-01-19] MEDS ORDERED: ALPRAZolam 0.25 MG TAB PO PRN (07:48)
[2025-01-19] MEDS ORDERED: NITROGLYCERIN SL TABS 0.4 MG TAB SUBLINGUAL PRN (07:48)
[2025-01-19 07:49] LABS: Glucose,Whole Blood 121 mg/dL (70-110)
[2025-01-19 07:58] LABS: Basophils % (A) 0 %; Eosinophils # (A) 0.2 k/uL (0-0.7); Eosinophils % (A) 2 %; HGB 15.3 gm/dL (11.4-16.0); Hypochromasia Slight; Lymphocytes # (A) 2.8 k/uL (1.0-4.8); Lymphocytes % (A) 26 %; MCH 28.1 pg (25.0-35.0); MCHC 31.9 g/dL (31.0-37.0); MCV 88.2 fL (80.0-100.0); Mean Platelet Volume 7.3; Monocytes # (A) 0.4 k/uL (0-1.0); Monocytes % (A) 4 %; Neutrophils # (A) 7.1 k/uL (1.3-7.7); Neutrophils % (A) 66 %; Platelet Count 270 k/uL (150-450); RBC 5.44 m/uL (3.80-5.40); RDW 14.1 % (11.5-15.5); WBC 10.8 k/uL (3.8-10.6)
[2025-01-19 08:10] LABS: African American GFR (CKD) >90 (>60 ml/min/1.73 sqM); Anion Gap 7 mmol/L; Blood Urea Nitrogen 13 mg/dL (7-17); Calcium 9.2 mg/dL (8.4-10.2); Carbon Dioxide 30 mmol/L (22-30); Chloride 101 mmol/L (98-107); Glucose 126 mg/dL (74-99); Non-African American GFR(CKD) >90 (>60 ml/min/1.73 sqM); Potassium 4.7 mmol/L (3.5-5.1); Sodium 138 mmol/L (137-145)
[2025-01-19] MEDS: SODIUM CHLORIDE 0.9% 1,000 ML in EMPTY BAG 1 BAG IV SCH (08:41)
[2025-01-19] MEDS: IV FLUID CONTINUATION 1,000 ML IV ONE (10:42)
[2025-01-19 10:50] VITALS: TEMP 98
[2025-01-19] MEDS: MIDAZOLAM 2 MG/2 ML VIAL IVP ONE (10:56)
[2025-01-19] MEDS: fentaNYL (PF) 50 MCG/1 ML VIAL IVP ONE (10:56)
[2025-01-19] MEDS: LIDOCAINE 1% INJ 10MG/ML (20 ML MDV) SQ ONE (10:57)
[2025-01-19] MEDS: VERAPAMIL SYRINGE (5 MG/10 ML) INTRAARTER ONE (11:00)
[2025-01-19] MEDS: HEPARIN SODIUM,PORCINE 10,000 UNIT in SODIUM CHLORIDE 0.9% 1,000 ML IRRIGATION PRN (11:04)
[2025-01-19] MEDS: HEPARIN SODIUM 1,000 UN/ML (10ML VL) IV ONE (11:04)
[2025-01-19] MEDS: HEPARIN SODIUM,PORCINE (1 ML) 2,500 UNIT in SODIUM CHLORIDE 0.9% 250 ML IRRIGATION PRN (11:04)
[2025-01-19] MEDS: IOPAMIDOL-370 100ML BTL INJ ONE (11:09)
--- NOTE | 2025-01-19 11:17 | P.CARDCATH ---
Date of Procedure: 01/19/25 Description of Procedure: DIAGNOSTIC CORONARY ANGIOGRAPHY and LEFT HEART CATH REPORT PROCEDURES PERFORMED: Left heart catheterization Selective coronary angiography Moderate conscious sedation 13 mins [Ultrasound assisted] Right radial access INDICATION: Abnormal stress test, unstable angina BRIEF HPI: Patient with multiple risk factors including morbid obesity, strong family history of CAD, diabetes, dyslipidemia presented to cardiology office because of substernal chest pressure symptoms with exertion. She had a Lexiscan nuclear stress test which showed moderate-sized moderate intensity reversible perfusion defect in the LAD territory. For this she was scheduled for an outpatient heart catheterization procedure. While patient was waiting for this procedure to be done she had substernal chest pressure which was not getting better with resting or nitroglycerin tablet for which she presented to [facility] for unstable angina. She was scheduled for the heart cath thereafter. CONSENT: I have explained the procedural steps of above-mentioned procedures in layman's terms to the patient. I discussed the risks (including but not limited to stroke, emergent vascular or cardiac surgery or ), benefits and alternative therapies for the above-mentioned procedure. I discussed the risks of sedation/analgesia and blood product administration (if indicated). The patient has indicated understanding and acceptance of these risks. Conscious Sedation: Patient's ECG, heart rate, blood pressure, pulse oximetry were monitored throughout the duration of procedure under my direct supervision. [2] mg Versed and [50] mcg Fentanyl were used for induction of moderate conscious sedation. Total duration of moderate concious sedation 13 minutes. PROCEDURAL DETAILS: Patient was prepped and draped in sterile fashion. 1% lidocaine was infiltrated over the right radial artery. Right radial access was obtained via modified seldinger technique. [Ultrasound was used for radial access]. Medications: 5mg of verapamil was administed in the radial sheet. 6000 units of Heparin was administed once the catheter reached the aortic root Wires and Catheter used: J wire was advanced under fluroscopy to get to aortic root. 5 [place] JR 4 diagnostic catheter was utilized obtain left ventricular pressure and pressure gradint across aortic valve. 5 [place] JR 4 diagnostic catheter was used to selectively engage the right coronary ostium. 5 [place] JL 3.5 diagnostic catheter was utilized to selectively engage the left coronary ostium. Angiographic images were reviewed in detail. Catheter and wire were removed. Radial sheet was flushed. The right radial sheath was removed and a TR band was placed. Patent hemostasis was achieved. The patient tolerated the procedure well. Patient was transported back to the post catheterization holding area in stable condition. TECHNICAL DETAILS Total radiation: 312 mGy Total fluro time: 1.2 minutes Total contrast used: Isovue [60 ml] Complications: [none] Estimated Blood loss: less than 15 ml HEMODYNAMICS: LVEDP 20 mmHg. There was no significant gradient across the aortic valve. SELECTIVE CORONARY ARTERIOGRAPHY: LEFT MAIN: The left main is short and large caliber vessel. It bifurcates into the LAD and circumflex. Left main appears angiographically normal. LEFT ANTERIOR DESCENDING CORONARY ARTERY: LAD is a large caliber vessel which terminates before reaching the apex. Proximal LAD appears angiographically patent. Mid LAD has 10% luminal irregularities. Distal LAD appears angiographically patent. Mid LAD gives rise to a medium size diagonal branch which appears angiographically patent. LEFT CIRCUMFLEX CORONARY ARTERY: It is nondominant vessel. Proximal LCx is angiographically patent. It gives rise to a medium size OM branch which appears graphically patent. After giving OM branch LCx bifurcates into a small AV gr oove branch and a small OM 2 branch which appears angiographically patent. RIGHT CORONARY ARTERY: Dominant vessel. The right coronary artery is a large caliber vessel which gives PDA and PLV branch. RCA, PDA and PL branch appears angiographically patent. IMPRESSION: Angiographically normal coronary arteries as described above. Mildly elevated LVEDP PLAN: Aggressive risk factor modification per most recent ACC/AHA guidelines. 125 cc fluids for 4 hours Follow-up in the office in 1-2 weeks. Performing Physician Patricio Pierre MD, FACC, RPVI Thank you for allowing [facility] to participate in this patient's care. Feel free to reach out in case of any followup questions.
[2025-01-19] MEDS ORDERED: RX INFO: IV CONTRAST WAS GIVEN 1 EACH MISC MISCELLANE PRN (11:19)
[2025-01-19] MEDS: SODIUM CHLORIDE 0.9% 1,000 ML IV SCH (11:20)
[2025-01-19 12:16] LABS: Glucose,Whole Blood 135 mg/dL (70-110)
[2025-01-19 13:09] VITALS: RESP 18
[2025-01-19] MEDS: DAPAGLIFLOZIN PROPANEDIOL 10 MG TABLET PO SCH (15:25)
[2025-01-19] MEDS: LOSARTAN 25 MG TAB PO SCH (15:25)
[2025-01-19 20:05] VITALS: BP 140/86; PULSE 76
--- NOTE | 2025-01-21 10:10 | P.DS ---
Providers Date of admission: 01/17/25 14:37 Expected date of discharge: 01/19/25 Attending physician: Juan Velásquez MD Consults: 01/17/25 14:37 Consult Physician Urgent Consulting Provider: [facility] Consult Reason/Comments: chest pain, abn ekg Do you want consulting provider notified?: Yes Primary care physician: Candy Fuentes Hospital Course: Final diagnosis Chest pain with abnormal stress test / possible unstable angina, status post cardiac catheterization which was clear Chronic hypoxemic and hypercapnic respiratory failure requiring oxygen via nasal cannula secondary to COPD Morbid obesity with obesity hypoventilation syndrome and obstructive sleep apnea clinically suspected. Patient was previously recommended to follow-up in the pulmonary clinic. Mild pulmonary hypertension Hypertension Diabetes type 2 insulin-dependent. Patient is also on Ozempic q. weekly Fibromyalgia Morbid obesity with a BMI of 50.3 Rheumatoid arthritis history Bipolar disorder Prior history of smoking Marijuana use on daily basis Vaginal bleeding postmenopausal. GI prophylaxis DVT prophylaxis Full code Discharge disposition Patient is being discharged in a stable condition with guarded prognosis to home. Patient will follow-up with Dr. Fuentes in the outpatient setting upon discharge. Patient is to continue with current medications and outpatient follow-up with pulmonary and cardiology as scheduled. Total time taken is greater than 35 minutes. Hospital course This is a 44-year-old female who was recently admitted with chest pain and was noted to have abnormal stress test a few days prior and was notified by primary care as well as cardiology to return for further evaluation. Patient was evaluated by cardiology underwent cardiac catheterization which was negative and no intervention required recommending close outpatient follow-up and continued medication compliance. 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 Patient given resources and referrals for outpatient follow-up on discharge. Patient has been cleared by consultation. Please refer to cardiology consultation notes for further HPI.bCurrently no reports of chest pain, shortness of breath, or palpitations. Patient is afebrile. No reports of nausea or vomiting and patient is tolerating diet. Patient will be discharged home today. Guarded prognosis and high risk for readmissions given significant comorbidities and noncompliance with medications and outpatient follow-up. Physical exam: Gen: This is a 44-year-old female who is awake, alert and oriented x 3, well- developed, morbidly obese HEENT: Head is atraumatic, normocephalic. Pupils equal, round. Sclerae is anicteric. NECK: Supple. No JVD. No lymphadenopathy. No thyromegaly. LUNGS: Diminished breath sounds bilaterally with faint expiratory wheezes and coarse rhonchi noted. No intercostal retractions. HEART: S1, S2 muffled ABDOMEN: Soft. Obese bowel sounds are present. No masses. No tenderness. EXTREMITIES: No pedal edema. No calf tenderness. Chronic lower extremity edema with large body habitus NEUROLOGICAL: Patient is awake, alert and oriented x3. Cranial nerves 2 through 12 are grossly intact. Please refer to medication reconciliation sheet for a list of medications. The impression and plan of care has been dictated by Ann Marie Meza, Nurse Practitioner as directed. Dr. Vasiliy MD I have performed a history and examination and MDM of this patient, discussed the same with the dictator, and agree with the dictator's assessment and plan as written ,documented as a scribe. Based on total visit time, I have performed more than 50% of the visit. Patient Condition at Discharge: Stable Plan - Discharge Summary New Discharge Prescriptions: New Losartan [Cozaar] 25 mg PO DAILY #30 tab Dapagliflozin Propanediol [Farxiga] 10 mg PO DAILY #30 tab Nitroglycerin Sl Tabs [Nitrostat] 0.4 mg SUBLINGUAL Q5M PRN #20 tab PRN Reason: Chest Pain Continue Montelukast [Singulair] 10 mg PO HS Pantoprazole Sodium [Protonix] 20 mg PO DAILY Brexpiprazole [Rexulti] 0.5 mg PO DAILY metFORMIN HCL [Glucophage] 500 mg PO BID #60 tab hydrOXYzine pamoate [Vistaril] 50 mg PO QID PRN PRN Reason: Anxiety oxyCODONE-APAP 10-325MG [Percocet 10-325 mg] 1 tab PO TID Albuterol Nebulized [Ventolin Nebulized] 2.5 mg INHALATION RT-Q4H PRN PRN Reason: Shortness Of Breath Ergocalciferol (Vitamin D2) [Drisdol (50,000 Iu)] 1,250 mcg PO WE Cetirizine HCl [Zyrtec] 10 mg PO DAILY Aspirin EC [Ecotrin Low Dose] 81 mg PO DAILY Pregabalin [Lyrica] 100 mg PO TID DULoxetine HCL [Cymbalta] 60 mg PO DAILY Atorvastatin [Lipitor] 20 mg PO DAILY Budesonide [Pulmicort] 1 mg INHALATION RT-DAILY Cyclobenzaprine [Flexeril] 10 mg PO HS Famotidine 40 mg PO HS valACYclovir HCL [Valtrex] 500 mg PO TID Fluticasone/Umeclidin/Vilanter [Trelegy Ellipta 100-62.5-25] 1 puff INHALATION RT-DAILY #1 each Lumateperone Tosylate [Caplyta] 42 mg PO DAILY Insulin Glargine,Hum.rec.anlog [Lantus Solostar Pen] 40 units SQ DAILY Semaglutide [Ozempic] 1 mg SQ WE carvediloL [Coreg] 6.25 mg PO BID Celecoxib [Celebrex] 400 mg PO DAILY Albuterol Inhaler [Ventolin Hfa Inhaler] 2 puff INHALATION RT-Q4H PRN PRN Reason: Shortness Of Breath QUEtiapine [SEROquel] 50 mg PO DIRECTED Discontinued Losartan Potassium 100 mg PO DAILY amLODIPine [Norvasc] 2.5 mg PO DAILY Discharge Medication List Brexpiprazole [Rexulti] 0.5 mg PO DAILY 11/09/23 [History] Montelukast [Singulair] 10 mg PO HS 11/09/23 [History] Pantoprazole Sodium [Protonix] 20 mg PO DAILY 11/09/23 [History] metFORMIN HCL [Glucophage] 500 mg PO BID #60 tab 11/14/23 [Rx] Insulin Glargine,Hum.rec.anlog [Lantus Solostar Pen] 40 units SQ DAILY 09/01/24 [History] Lumateperone Tosylate [Caplyta] 42 mg PO DAILY 09/01/24 [History] Semaglutide [Ozempic] 1 mg SQ WE 09/01/24 [History] hydrOXYzine pamoate [Vistaril] 50 mg PO QID PRN 09/01/24 [History] oxyCODONE-APAP 10-325MG [Percocet 10-325 mg] 1 tab PO TID 09/01/24 [History] Albuterol Nebulized [Ventolin Nebulized] 2.5 mg INHALATION RT-Q4H PRN 12/17/24 [History] Aspirin EC [Ecotrin Low Dose] 81 mg PO DAILY 12/17/24 [History] Celecoxib [Celebrex] 400 mg PO DAILY 12/17/24 [History] Cetirizine HCl [Zyrtec] 10 mg PO DAILY 12/17/24 [History] DULoxetine HCL [Cymbalta] 60 mg PO DAILY 12/17/24 [History] Ergocalciferol (Vitamin D2) [Drisdol (50,000 Iu)] 1,250 mcg PO WE 12/17/24 [History] Pregabalin [Lyrica] 100 mg PO TID 12/17/24 [History] carvediloL [Coreg] 6.25 mg PO BID 12/17/24 [History] Albuterol Inhaler [Ventolin Hfa Inhaler] 2 puff INHALATION RT-Q4H PRN 01/17/25 [History] Atorvastatin [Lipitor] 20 mg PO DAILY 01/17/25 [History] Budesonide [Pulmicort] 1 mg INHALATION RT-DAILY 01/17/25 [History] Cyclobenzaprine [Flexeril] 10 mg PO HS 01/17/25 [History] Famotidine 40 mg PO HS 01/17/25 [History] QUEtiapine [SEROquel] 50 mg PO DIRECTED 01/17/25 [History] valACYclovir HCL [Valtrex] 500 mg PO TID 01/17/25 [History] Dapagliflozin Propanediol [Farxiga] 10 mg PO DAILY #30 tab 01/19/25 [Rx] Fluticasone/Umeclidin/Vilanter [Trelegy Ellipta 100-62.5-25] 1 puff INHALATION RT-DAILY #1 each 01/19/25 [Rx] Losartan [Cozaar] 25 mg PO DAILY #30 tab 01/19/25 [Rx] Nitroglycerin Sl Tabs [Nitrostat] 0.4 mg SUBLINGUAL Q5M PRN #20 tab 01/19/25 [Rx] Follow up Appointment(s)/Referral(s): Tip Campbell MD [STAFF PHYSICIAN] - 02/10/25 9:00 am Patricio Pierre MD [Medical Doctor] - 01/29/25 11:30 am Candy Fuentes MD [Primary Care Provider] - 01/26/25 11:45 am Patient Instructions/Handouts: Meal Planning with Diabetes Exchanges (GEN), Moderate Sedation (DC), After Radial Heart Catheterization (GEN) Activity/Diet/Wound Care/Special Instructions: Okay for discharge after cardiology clearance and cardiac catheterization protocol Activity limited until follow-up Continue taking medications as prescribed Continue tight glycemic control with heart healthy diabetic diet and controlling blood sugars Continue with breathing treatments and inhalers and outpatient follow-up with pulmonary No lifting/pushing/pulling greater than 5 lbs for 5 days with right arm. Remove dressing from right wrist tomorrow afternoon (about 1pm). No need to re- dress. You may shower tomorrow after dressing removal. No prolonged soaking of puncture site for 3 days (such as swim or tub). No driving until Sun. Discharge Disposition: HOME SELF-CARE
== END 2025-01-19 15:37 | disposition home or self-care (01) | DRG 287 ==
LOC: EC 13:23 → 3SCARD 14:37
PROVIDERS: ADMIT Internal Medicine; ATTEND Internal Medicine
PROC: B2111ZZ Fluoroscopy of Multiple Coronary Arteries using Low Osmolar Contrast (ICD-10-PCS; 2025-01-19)
PROC: B2151ZZ Fluoroscopy of Left Heart using Low Osmolar Contrast (ICD-10-PCS; 2025-01-19)
PROC: 4A023N7 Measurement of Cardiac Sampling and Pressure, Left Heart, Percutaneous Approach (ICD-10-PCS; principal; 2025-01-19 09:00)
DX: I25.110 Atherosclerotic heart disease of native coronary artery with unstable angina pectoris (principal); I27.20 Pulmonary hypertension, unspecified; J96.12 Chronic respiratory failure with hypercapnia; E66.2 Morbid (severe) obesity with alveolar hypoventilation; Z68.43 Body mass index [BMI] 50.0-59.9, adult; J96.11 Chronic respiratory failure with hypoxia; M06.9 Rheumatoid arthritis, unspecified; J44.9 Chronic obstructive pulmonary disease, unspecified; F31.9 Bipolar disorder, unspecified; E11.9 Type 2 diabetes mellitus without complications; I10 Essential (primary) hypertension; N17.9 Acute kidney failure, unspecified; Z79.4 Long term (current) use of insulin; R94.39 Abnormal result of other cardiovascular function study; M79.7 Fibromyalgia; D25.9 Leiomyoma of uterus, unspecified; E78.5 Hyperlipidemia, unspecified; Z79.82 Long term (current) use of aspirin; Z79.51 Long term (current) use of inhaled steroids; Z79.84 Long term (current) use of oral hypoglycemic drugs; Z79.899 Other long term (current) drug therapy; Z82.49 Family history of ischemic heart disease and other diseases of the circulatory system
CPT/HCPCS: 36415; 71045; 76830; 80048; 80053; 80061; 83036; 83735; 83880; 84484; 85025; 85610; 85730; 93005; 93458; 94640; 96365; 96366; 96375; 99285

== ENCOUNTER → 2025-02-11 | Outpatient (CLI) | payer MEDICARE, OTHER | END | disposition home or self-care (01) | LOC: RADUSWWP 16:16 | PROVIDERS: ATTEND Family Medicine | DX: Z53.9 Procedure and treatment not carried out, unspecified reason (principal) ==

== ENCOUNTER 2025-05-03 12:31 | Emergency (ER) | payer MEDICARE, OTHER ==
--- NOTE | 2025-05-03 13:12 | ED ---
General Adult HPI - General Chief complaint: Back Pain/Injury Stated complaint: back pain Time Seen by Provider: 05/03/25 13:04 Source: patient, RN notes reviewed Mode of arrival: ambulatory Limitations: no limitations - History of Present Illness Initial comments: Patient is a 45-year-old female presenting to the emergency department with concern for mid back pain. Onset of symptoms was 3 to 4 days ago. Symptoms have progressed daily since that time. Symptoms are positional. Discomfort starts mid to lower thoracic and next trends laterally bilaterally. No chest pain. No abdominal pain. No dyspnea. Patient did have similar symptoms several months ago that resolved on its own. - Related Data Home Medications Medication Instructions Recorded Confirmed Brexpiprazole [Rexulti] 0.5 mg PO DAILY 11/09/23 01/17/25 Montelukast [Singulair] 10 mg PO HS 11/09/23 01/17/25 Pantoprazole Sodium [Protonix] 20 mg PO DAILY 11/09/23 01/17/25 Insulin Glargine,Hum.rec.anlog 40 units SQ DAILY 09/01/24 01/17/25 [Lantus Solostar Pen] Lumateperone Tosylate [Caplyta] 42 mg PO DAILY 09/01/24 01/17/25 Semaglutide [Ozempic] 1 mg SQ WE 09/01/24 01/17/25 hydrOXYzine pamoate [Vistaril] 50 mg PO QID PRN 09/01/24 01/17/25 oxyCODONE-APAP 10-325MG [Percocet 1 tab PO TID 09/01/24 01/17/25 10-325 mg] Albuterol Nebulized [Ventolin 2.5 mg INHALATION RT-Q4H PRN 12/17/24 01/17/25 Nebulized] Aspirin EC [Ecotrin Low Dose] 81 mg PO DAILY 12/17/24 01/17/25 Celecoxib [Celebrex] 400 mg PO DAILY 12/17/24 01/17/25 Cetirizine HCl [Zyrtec] 10 mg PO DAILY 12/17/24 01/17/25 DULoxetine HCL [Cymbalta] 60 mg PO DAILY 12/17/24 01/17/25 Ergocalciferol (Vitamin D2) 1,250 mcg PO WE 12/17/24 01/17/25 [Drisdol (50,000 Iu)] Pregabalin [Lyrica] 100 mg PO TID 12/17/24 01/17/25 carvediloL [Coreg] 6.25 mg PO BID 12/17/24 01/17/25 Albuterol Inhaler [Ventolin Hfa 2 puff INHALATION RT-Q4H PRN 01/17/25 01/17/25 Inhaler] Atorvastatin [Lipitor] 20 mg PO DAILY 01/17/25 01/17/25 Budesonide [Pulmicort] 1 mg INHALATION RT-DAILY 01/17/25 01/17/25 Cyclobenzaprine [Flexeril] 10 mg PO HS 01/17/25 01/17/25 Famotidine 40 mg PO HS 01/17/25 01/17/25 QUEtiapine [SEROquel] 50 mg PO DIRECTED 01/17/25 01/17/25 valACYclovir HCL [Valtrex] 500 mg PO TID 01/17/25 01/17/25 Previous Rx's Medication Instructions Recorded metFORMIN HCL [Glucophage] 500 mg PO BID #60 tab 11/14/23 Dapagliflozin Propanediol [Farxiga] 10 mg PO DAILY #30 tab 01/19/25 Fluticasone/Umeclidin/Vilanter 1 puff INHALATION RT-DAILY #1 each 01/19/25 [Trelegy Ellipta 100-62.5-25] Losartan [Cozaar] 25 mg PO DAILY #30 tab 01/19/25 Nitroglycerin Sl Tabs [Nitrostat] 0.4 mg SUBLINGUAL Q5M PRN #20 tab 01/19/25 Cyclobenzaprine [Flexeril] 10 mg PO TID PRN #20 tablet 05/03/25 Ibuprofen [Motrin] 800 mg PO Q8H PRN #15 tab 05/03/25 Allergies Allergy/AdvReac Type Severity Reaction Status Date / Time shellfish derived Allergy Rash/Hives Verified 05/03/25 12:41 tramadol Allergy Anaphylaxis Verified 05/03/25 12:41 naproxen AdvReac Rash/Hives Verified 05/03/25 12:41 Review of Systems ROS Statement: Those systems with pertinent positive or pertinent negative responses have been documented in the HPI. ROS Other: All systems not noted in ROS Statement are negative. Constitutional: Denies: fever Eyes: Denies: eye pain ENT: Denies: ear pain Respiratory: Denies: dyspnea Cardiovascular: Denies: chest pain Musculoskeletal: Reports: as per HPI, back pain Past Medical History Past Medical History: Asthma, Coronary Artery Disease (CAD), COPD, Diabetes Mellitus, Fibromyalgia, Hypertension, Rheumatoid Arthritis (RA) Additional Past Medical History / Comment(s): obesity. ABD PAIN History of Any Multi-Drug Resistant Organisms: None Reported Past Surgical History: No Surgical Hx Reported Additional Past Surgical History / Comment(s): CYST REMOVED FROM HEAD. COLONOSCOPY Past Anesthesia/Blood Transfusion Reactions: No Reported Reaction Past Psychological History: Bipolar Smoking Status: Never smoker Past Alcohol Use History: None Reported Past Drug Use History: Marijuana - Past Family History Mother Family Medical History: Cancer General Exam Limitations: no limitations General appearance: alert, in no apparent distress Head exam: Present: normocephalic Eye exam: Present: normal appearance Respiratory exam: Present: normal lung sounds bilaterally. Absent: chest wall tenderness Cardiovascular Exam: Present: regular rate, normal rhythm Expanded Peripheral pulses: 2+: Posterior Tibialis (R), Posterior Tibialis (L) GI/Abdominal exam: Present: soft. Absent: tenderness, pulsatile mass Extremities exam: Present: normal inspection. Absent: pedal edema, calf tenderness Back exam: Present: tenderness (Mild tenderness and muscle spasm T9/10 region) Neurological exam: Present: alert. Absent: motor sensory deficit Psychiatric exam: Present: normal affect, normal mood Skin exam: Present: normal color Course Vital Signs 05/03/25 12:38 Temperature 99.2 F Pulse Rate 102 H Respiratory 20 Rate Blood Pressure 125/78 O2 Sat by Pulse 95 Oximetry Medical Decision Making - Medical Decision Making Was pt. sent in by a medical professional or institution (, PA, CUSTOMER COUNTER REPRESENTATIVE, urgent care, hospital, or penitentiary...) When possible be specific @ -No Did you speak to anyone other than the patient for history (EMS, parent, family, police, friend...)? What history was obtained from this source @ -No Did you review nursing and triage notes (agree or disagree)? Why? @ -I reviewed and agree with nursing and triage notes Were old charts reviewed (outside hosp., previous admission, EMS record, old EKG, old radiological studies, urgent care reports/EKG's, penitentiary records)? Report findings @ -No old charts were reviewed Differential Diagnosis (chest pain, altered mental status, abdominal pain women, abdominal pain men, vaginal bleeding, weakness, fever, dyspnea, syncope, headache, dizziness, GI bleed, back pain, seizure, CVA, palpatations, mental health, musculoskeletal)? @ -Differential Back Pain: Strain, zoster, cauda equina syndrome, epidural abscess, vertebral osteomyelitis, discitis, fracture, subluxation, disc herniation, DJD, spinal stenosis, dissection, AAA, pancreatitis, peptic ulcer disease, pyelonephritis, kidney stone, this is not meant to be an all-inclusive list. EKG interpreted by me (3pts min.). @ -As above X-rays interpreted by me (1pt min.). @ -Thoracic spine x-rays with mild degenerative change. Chest x-ray shows no acute process CT interpreted by me (1pt min.). @ -None done U/S interpreted by me (1pt. min.). @ -None done What testing was considered but not performed or refused? (CT, X-rays, U/S, labs)? Why? @ -None What meds were considered but not given or refused? Why? @ -None Did you discuss the management of the patient with other professionals (professionals i.e. , PA, CUSTOMER COUNTER REPRESENTATIVE, lab, RT, psych nurse, social group worker, core drilling supervisor, teacher, air defence officer, keycase assembler)? Give summary @ -No Was smoking cessation discussed for >3mins.? @ -No Was critical care preformed (if so, how long)? @ -No Were there social determinants of health that impacted care today? How? (Homelessness, low income, unemployed, alcoholism, drug addiction, transportation, low edu. Level, literacy, decrease access to med. care, [place] [facility], rehab)? @ -No Was there de-escalation of care discussed even if they declined (Discuss DNR or withdrawal of care, Hospice)? DNR status @ -No What co-morbidities impacted this encounter? (DM, HTN, Smoking, COPD, CAD, Cancer, CVA, ARF, Chemo, Hep., AIDS, mental health diagnosis, sleep apnea, morbid obesity)? @ -None Was patient admitted / discharged? Hospital course, mention meds given and route, prescriptions, significant lab abnormalities, going to OR and other pertinent info. @ -Patient presents with lower thoracic back discomfort. X-ray with only mild degenerative changes, no other findings. Patient reevaluated and experiencing improvement. Patient will be discharged with prescription. Patient updated Undiagnosed new problem with uncertain prognosis? @ -No Drug Therapy requiring intensive monitoring for toxicity (Heparin, Nitro, Insulin, Cardizem)? @ -No Were any procedures done? @ -No Diagnosis/symptom? @ -Thoracic back pain Acute, or Chronic, or Acute on Chronic? @ -Acute Uncomplicated (without systemic symptoms) or Complicated (systemic symptoms)? @ -Default Side effects of treatment? @ -No Exacerbation, Progression, or Severe Exacerbation? @ -No Poses a threat to life or bodily function? How? (Chest pain, [place], [place], pneumonia, PE, COPD, DKA, ARF, appy, cholecystitis, CVA, Diverticulitis, Homicidal, Suicidal, threat to staff... and all critical care pts) @ -No Disposition Clinical Impression: Thoracic back pain Disposition: HOME SELF-CARE Condition: Stable Instructions (If sedation given, give patient instructions): Back Pain (ED) Additional Instructions: Prescription sent to pharmacy. Please do follow-up with your primary care physician in the next couple of days for recheck. Return for increased pain, abdominal pain or chest pain, weakness, fever, loss of control of bowel or bladder, worsening symptoms or other concerns. Prescriptions: Cyclobenzaprine [Flexeril] 10 mg PO TID PRN #20 tablet PRN Reason: Pain Ibuprofen [Motrin] 800 mg PO Q8H PRN #15 tab PRN Reason: Pain Is patient prescribed a controlled substance at d/c from ED?: No Referrals: Candy Fuentes MD [Primary Care Provider] - 1-2 days Time of Disposition: 14:33
--- NOTE | 2025-05-03 13:59 | XR ---
Chest, 2 view. CLINICAL INDICATION: Female, 45 years old with history of pain COMPARISON: 01/02/2025 TECHNIQUE: PA and lateral views the chest are obtained. FINDINGS: The lungs are clear and there is no consolidative or interstitial opacity. There is no pleural effusion or pneumothorax. The heart, pulmonary vasculature, mediastinum and edwar appear normal. The osseous structures are intact. IMPRESSION: No significant abnormality seen. No acute cardiopulmonary disease. [facility], , 05/03/2025 1:57 PM
--- NOTE | 2025-05-03 14:01 | XR ---
Thoracic spine. HISTORY: Back pain. COMPARISON: None TECHNIQUE: 3 views of thoracic spine were obtained. FINDINGS: The thoracic vertebral segments are normal in height and alignment and there is no fracture or sublux ation. There are no focal intraosseous abnormalities. There is mild spondylosis in the mid and lower thoracic spine indicating mild degenerative disc disea se. The paraspinal soft tissues are unremarkable. IMPRESSION: Mild degenerative disc disease in the mid and lower thoracic spine. No other significant abnormality. [facility], Workstation: [email or web address] 05/03/2025 1:59 PM
[2025-05-03] MEDS: KETOROLAC 15 MG/ML 1 ML VIAL IM STA (14:02)
[2025-05-03 15:18] VITALS: BP 110/44; PULSE 82; RESP 19; TEMP 97.6
== END 2025-05-03 15:18 | disposition home or self-care (01) ==
LOC: EC 12:31
DX: M54.6 Pain in thoracic spine (principal); Z88.6 Allergy status to analgesic agent; Z88.5 Allergy status to narcotic agent; Z91.013 Allergy to seafood
CPT/HCPCS: 72072; 71046; 99283; 96372; J1885